=== PATIENT | female | born 1970 | race Caucasian/White ===

== ENCOUNTER 2018-03-17 05:16 | Inpatient (IN) | payer OTHER ==
[2018-03-17 05:31] VITALS: BMI 26.5
[2018-03-17] MEDS ORDERED: SODIUM CHLORIDE 1,000 ML IV STA ×2 (05:41→14:37)
[2018-03-17] MEDS ORDERED: ONDANSETRON 4 MG/2 ML VIAL IVPUSH ONE (05:41)
[2018-03-17] MEDS ORDERED: FAMOTIDINE 20 MG/50 ML IVPB 20 MG/50 ML MG IVPB ONE ×2 (05:41→06:01)
--- NOTE | 2018-03-17 05:47 | PDOC ---
*Physical Exam - Vital Signs Last Vital Signs Temp Pulse Resp BP Pulse Ox 97.7 F 81 20 120/71 99 03/17/18 05:30 03/17/18 05:30 03/17/18 05:30 03/17/18 05:30 03/17/18 05:30 ED Treatment Course - LABORATORY CBC & Chemistry Diagram: 03/23/18 06:00 03/23/18 06:00 Medical Decision Making - Medical Decision Making 03/17/18 05:47 The patient was seen and evaluated in conjunction with SONIA Jackson under my direct supervision, ancillary studies were reviewed. I independently evaluated the patient and I agree with the plan as outlined by SONIA Jackson . *DC/Admit/Observation/Transfer Diagnosis at time of Disposition: Appendicitis - Discharge Dispostion Condition at time of disposition: Guarded - Referrals - Patient Instructions - Post Discharge Activity
[2018-03-17] MEDS ORDERED: ONDANSETRON 4 MG/2 ML VIAL ONE (06:01)
[2018-03-17 06:04] LABS: BASO % 0.3 % (0-2.0); EOS % 0.4 % (0-4.5); HEMOGLOBIN 13.2 GM/dL (10.7-15.3); LYMPH % 9.6 % (8-40); MCH 28.6 pg (25.7-33.7); MCHC 32.9 g/dl (32.0-36.0); MEAN CELL VOLUME 87.1 fl (80-96); NEUT % 86.7 % (42.8-82.8); PLATELET COUNT 229 K/MM3 (134-434); RBC 4.59 M/mm3 (3.60-5.2); RDW 13.7 % (11.6-15.6); WHITE BLOOD COUNT 14.1 K/mm3 (4.0-10.0)
--- NOTE | 2018-03-17 06:14 | PDOC ---
History of Present Illness - General Chief Complaint: Nausea/Vomiting Stated Complaint: ABD PAIN Time Seen by Provider: 03/17/18 05:31 History Source: Patient Exam Limitations: No Limitations Past History - Past Medical History Allergies/Adverse Reactions: Allergies Allergy/AdvReac Type Severity Reaction Status Date / Time No Known Allergies Allergy Verified 03/17/18 05:30 Home Medications: Ambulatory Orders NK [No Known Home Medication] 03/17/18 COPD: No - Surgical History Cholecystectomy: Yes GI Surgery: Yes - Suicide/Smoking/Psychosocial Hx Smoking History: Never smoked Have you smoked in the past 12 months: No Information on smoking cessation initiated: No Hx Alcohol Use: No Drug/Substance Use Hx: No *Physical Exam - Vital Signs Last Vital Signs Temp Pulse Resp BP Pulse Ox 97.7 F 81 20 120/71 99 03/17/18 05:30 03/17/18 05:30 03/17/18 05:30 03/17/18 05:30 03/17/18 05:30 - Physical Exam General Appearance: No: Apparent Distress Respiratory/Chest: positive: Lungs Clear, Normal Breath Sounds. negative: Respiratory Distress Cardiovascular: positive: Regular Rhythm, Regular Rate, S1, S2. negative: Murmur Gastrointestinal/Abdominal: positive: Soft, Tenderness (Along upper abdomen ( mainly RUQ, slight in LUQ as well)). negative: Distended, Guarding, Rebound, Mass Musculoskeletal: negative: CVA Tenderness Integumentary: positive: Normal Color Neurologic: positive: Alert, Normal Mood/Affect Moderate Sedation - Procedure Monitoring Vital Signs: Procedure Monitoring Vital Signs Temperature 97.7 F 03/17/18 05:30 Pulse Rate 81 03/17/18 05:30 Respiratory Rate 20 03/17/18 05:30 Blood Pressure 120/71 03/17/18 05:30 O2 Sat by Pulse Oximetry (%) 99 03/17/18 05:30 ED Treatment Course - LABORATORY CBC & Chemistry Diagram: 03/17/18 05:50 03/17/18 05:50 Medical Decision Making - Medical Decision Making 47 y/o F hx of , tummy tuck, cholecystectomy (around 8 years ago) presents with epigastric pain that started at 2 AM today along with NBNB emesis ; unable to describe quality of pain. Took Tylenol prior to coming without much relief of sxs. Denies eating any food recently that could have triggered her symptoms. Denies fever, URI sxs, sob, cp, diarrhea, black/bloody stools, urinary complaints. Denies alcohol or drug use. DDx to consider: gastritis, choledocholithiasis, pancreatitis Not suspicious for ACS given no risk factors Plan: Labs, IVF, Zofran, Pepcid Will consider further imaging depending on results of labs and how patient feels after meds 03/17/18 06:05 Patient reassessed and now appears to be in more pain than prior Will give Morphine 4 mg, get RUQ sono Labs show WBC of 14.1; CMP and lipase still pending 03/17/18 06:35 Patient reassessed and feeling much better Rest of labs still pending Will endorse to incoming provider 03/17/18 06:50 *DC/Admit/Observation/Transfer - Referrals Referrals: Jamie Beaulieu MD [Primary Care Provider] - - Patient Instructions - Post Discharge Activity
[2018-03-17] MEDS ORDERED: morphine CARPU-JECT 4 MG/1 ML DISP.SYRIN IVPUSH ONE (06:31)
[2018-03-17] MEDS ORDERED: morphine SULFATE 4 MG/ML VIAL ONE (06:33)
[2018-03-17 07:08] LABS: ALBUMIN 3.6 g/dl (3.4-5.0); ALK PHOS 107 U/L (45-117); ANION GAP 9 MMOL/L (8-16); BILIRUBIN,TOTAL 0.4 mg/dL (0.2-1); BLOOD UREA NITROGEN 14 mg/dL (7-18); CALCIUM 8.3 mg/dL (8.5-10.1); CHLORIDE 106 mmol/L (98-107); CO2 25 mmol/L (21-32); CREATININE 0.6 mg/dL (0.55-1.3); GLUCOSE,RANDOM 144 mg/dL (74-106); LIPASE 103 U/L (73-393); POTASSIUM 3.4 mmol/L (3.5-5.1); SGOT/AST 23 U/L (15-37); SGPT/ALT 27 U/L (13-61); SODIUM 140 mmol/L (136-145); TOT PROT 7.7 g/dl (6.4-8.2)
--- NOTE | 2018-03-17 07:17 | PDOC ---
*Physical Exam - Vital Signs Last Vital Signs Temp Pulse Resp BP Pulse Ox 97.7 F 81 20 120/71 99 03/17/18 05:30 03/17/18 05:30 03/17/18 05:30 03/17/18 05:30 03/17/18 05:30 - Physical Exam General Appearance: Yes: Nourished, Appropriately Dressed, Mild Distress ( holding abdomen) Respiratory/Chest: positive: Lungs Clear, Normal Breath Sounds. negative: Respiratory Distress, Accessory Muscle Use, Rhonchi, Stridor, Wheezing Cardiovascular: positive: Regular Rhythm, Regular Rate, S1, S2 (present). negative: Murmur Gastrointestinal/Abdominal: positive: Normal Bowel Sounds, Tender (LLQ, epigastric tenderness), Flat. negative: Distended, Guarding, Rebound Integumentary: positive: Normal Color, Dry, Warm Neurologic: positive: Fully Oriented, Alert, Normal Mood/Affect, Normal Response , Motor Strength 5/5 ED Treatment Course - LABORATORY CBC & Chemistry Diagram: 03/17/18 05:50 03/17/18 05:50 - ADDITIONAL ORDERS Additional order review: Laboratory Results 03/17/18 03/17/18 05:50 05:50 Sodium 140 Potassium 3.4 L Chloride 106 Carbon Dioxide 25 Anion Gap 9 BUN 14 Creatinine 0.6 Creat Clearance w eGFR > 60 Random Glucose 144 H Calcium 8.3 L Total Bilirubin 0.4 AST 23 ALT 27 Alkaline Phosphatase 107 Total Protein 7.7 Albumin 3.6 Lipase 103 Urine HCG, Qual Negative 03/17/18 05:50 RBC 4.59 MCV 87.1 MCHC 32.9 RDW 13.7 MPV 8.0 Neutrophils % 86.7 H Lymphocytes % 9.6 Monocytes % 3.0 L Eosinophils % 0.4 Basophils % 0.3 - Medications Given in the ED: ED Medications Discontinued Medications Generic Name Dose Route Start Last Admin Trade Name Freq PRN Reason Stop Dose Admin Famotidine/Sodium Chloride 20 mg in 50 mls @ 100 mls/hr 03/17/18 05:41 06:06 Pepcid 20 Mg Premixed Ivpb - IVPB 03/17/18 06:10 100 mls/hr ONCE ONE Administration Sodium Chloride 1,000 mls @ 1,000 mls/hr 03/17/18 05:41 03/17/18 06:00 Normal Saline - IV 03/17/18 06:40 1,000 mls/hr ASDIR STA Administration Morphine Sulfate 4 mg 03/17/18 06:31 03/17/18 06:37 Morphine Injection - IVPUSH 03/17/18 06:32 4 mg ONCE ONE Administration Ondansetron HCl 4 mg 03/17/18 05:41 03/17/18 06:06 Zofran Injection IVPUSH 03/17/18 05:42 4 mg ONCE ONE Administration Medical Decision Making - Medical Decision Making 03/17/18 07:16 Sign out received from SONIA Alfaro. Pt came with nausea, vomiting, and RUQ pain. Pt pending CMP and RUQ US at this time. 03/17/18 08:25 Pt headed to US at this time. Pt still with pain, Ofirmev ordered at this time. 03/17/18 10:33 Pt still with pain after US. Abdomen US shows no gallstones or zay. Pt still with LLQ and epigastric pain, CTAP with contrast ordered; reglan ordered for vomiting 03/17/18 15:04 CTAP shows acute appendicitis without abscess formation or perforation. 1g ceftriaxone and 500mg flagyl given Fluids ordered Call placed to Dr. Lehman. Will take to surgery today. Admit to [facility]. *DC/Admit/Observation/Transfer Diagnosis at time of Disposition: Appendicitis Qualifiers: Appendicitis type: acute appendicitis Acute appendicitis type: with localized peritonitis Appendicitis gangrene presence: without gangrene Appendicitis perforation presence: without perforation Appendicitis abscess presence: without abscess Qualified Code(s): K35.30 - Acute appendicitis with localized peritonitis, without perforation or gangrene - Discharge Dispostion Condition at time of disposition: Guarded Decision to Admit order: Yes - Referrals Referrals: Jamie Beaulieu MD [Primary Care Provider] - - Patient Instructions - Post Discharge Activity
[2018-03-17] MEDS ORDERED: ACETAMINOPHEN 1000 MG/100 ML VIAL (NON FORMULARY) IVPB ONE (08:24)
[2018-03-17] MEDS ORDERED: ACETAMINOPHEN INJECTION 100 ML IVPB ONE (08:25)
[2018-03-17] MEDS ORDERED: METOCLOPRAMIDE HCL INJECTION 10 MG/2 ML VIAL ONE (11:05)
[2018-03-17] MEDS ORDERED: METOCLOPRAMIDE HCL INJECTION 10 MG/2 ML VIAL IVPB ONE (11:10)
[2018-03-17] MEDS ORDERED: CEFTRIAXONE 1,000 MG in DEXTROSE 5%-WATER - 50 ML IVPB ONE (14:46)
[2018-03-17] MEDS ORDERED: CEFTRIAXONE 1 GM/50 ML BAG ONE (15:08)
[2018-03-17] MEDS ORDERED: SODIUM CHLORIDE 1,000 ML IV SCH (16:15)
[2018-03-17] MEDS ORDERED: LIDOCAINE HCL 1%, 10 MG/ML (20ML VIAL) ONE (16:34)
[2018-03-17] MEDS ORDERED: BUPIVACAINE HCL/PF 0.5% (5MG/ML) 10 ML VIAL ONE (16:34)
[2018-03-17] MEDS ORDERED: DEXAMETHASONE SOD PHOSPHATE 4 MG/1 ML VIAL ONE ×2 (17:17→17:34)
[2018-03-17] MEDS ORDERED: PROPOFOL 20 ML ONE (17:18)
[2018-03-17] MEDS ORDERED: ROCURONIUM BROMIDE 50 MG/5 ML VIAL ONE (17:19)
[2018-03-17] MEDS ORDERED: ePHEDrine SULFATE 50 MG/1 ML AMPULE ONE (17:29)
[2018-03-17] MEDS ORDERED: BUPIVACAINE HCL/PF (5 MG/ML) 30 ML VIAL IJ ONE ×2 (17:31)
[2018-03-17] MEDS ORDERED: LIDOCAINE HCL 1%, 10 MG/ML (20ML VIAL) INF ONE ×2 (17:31)
[2018-03-17] MEDS ORDERED: NEOSTIGMINE METHYLSULFATE 0.5 MG/ML - 10 ML MDV ONE (17:46)
[2018-03-17] MEDS ORDERED: GLYCOPYRROLATE 0.2 MG/1 ML VIAL ONE (17:46)
[2018-03-17] MEDS ORDERED: KETOROLAC TROMETHAMINE 30 MG/1 ML VIAL IVPUSH PRN (18:09)
--- NOTE | 2018-03-17 18:09 | OP ---
Operative Note - Note: Operative Date: 03/17/18 Pre-Operative Diagnosis: acute appendicittis Operation: laparoscopic appendectomy Post-Operative Diagnosis: Same as Pre-op Anesthesia: General Specimens Removed: appendix Estimated Blood Loss (mls): 5 Operative Report Dictated: Yes
[2018-03-17] MEDS ORDERED: KETOROLAC TROMETHAMINE 30 MG/1 ML VIAL ONE (19:19)
[2018-03-17] MEDS: LACTATED RINGERS SOLUTION 1,000 ML IV SCH (21:54)
[2018-03-17] MEDS: ACETAMINOPHEN WITH CODEINE 300MG/30MG TABLET PO PRN (22:54)
[2018-03-18] MEDS: HYDROmorphone HCl 2 MG/ML VIAL IVPB PRN ×3 (01:38→20:58)
[2018-03-18 07:09] LABS: BASO % 0.1 % (0-2.0); HEMATOCRIT 34.9 % (32.4-45.2); HEMOGLOBIN 11.6 GM/dL (10.7-15.3); LYMPH % 5.8 % (8-40); MCH 28.9 pg (25.7-33.7); MCHC 33.3 g/dl (32.0-36.0); MEAN CELL VOLUME 86.7 fl (80-96); MEAN PLT VOLUME 8.2 fl (7.5-11.1); MONO % 2.5 % (3.8-10.2); NEUT % 91.6 % (42.8-82.8); PLATELET COUNT 187 K/MM3 (134-434); RBC 4.03 M/mm3 (3.60-5.2); RDW 13.2 % (11.6-15.6); WHITE BLOOD COUNT 10.6 K/mm3 (4.0-10.0)
--- NOTE | 2018-03-18 07:44 | OP ---
DATE OF OPERATION: 03/17/2018 PREOPERATIVE DIAGNOSIS: Acute appendicitis. POSTOPERATIVE DIAGNOSIS: Acute appendicitis. PROCEDURE: Laparoscopic appendectomy. SURGEON: Genaro Gamez MD COMPLICATIONS: None. BLEEDING: Minimal. ANESTHESIA: General. SPECIMEN: Appendix. CONDITION: Patient tolerated procedure well. This is a 47-year-old female with no significant past medical history who presented with a 1-day history of lower abdominal pain. She has a history of previous cholecystectomy, and abdominoplasty. On CT it was confirmed to have the presence of acute appendicitis for which a surgical consultation was obtained. Risks and benefits were discussed with the patient and she was taken to the operating room for a laparoscopic appendectomy. She agreed to proceed as planned. In the operating room she was placed in the supine position and after the induction of general anesthesia was prepped and draped in the usual sterile fashion. The operation was begun. Given the previous scar in the abdominal wall with an incision in the left subcostal margin insufflation through a Veress needle to a pressure of 15 mmHg followed by the introduction of 5-mm port. Under direct vision then another 5-mm port was placed in the periumbilical scar tissue and a 12-mm port was placed in the left lower quadrant in the scar of the previous abdominoplasty. The appendix was clearly visualized. The patient was positioned in the reverse Trendelenburg position. The mesoappendix then mobilized and divided over the LigaSure and was skeletonized to the base of the appendix and then an Endo-BLANCA purple stapler was then used to divide the base of the appendix at the level of the cecum. There was no bleeding from the staple line. The appendix was placed in an EndoCatch bag and removed through the left lower quadrant port. The ports were removed under direct vision. The peritoneal cavity was irrigated, inspection properly and the fascia at the 12-mm site was closed with 0 Vicryl suture to close the fascia. The skin was closed with 4-0 Monocryl and Dermabond was applied. The patient was brought then to the recovery room awake and alert in stable condition. She tolerated her procedure well. Jessica [id number]
[2018-03-18 07:54] LABS: ALBUMIN 2.6 g/dl (3.4-5.0); ALK PHOS 55 U/L (45-117); ANION GAP 10 MMOL/L (8-16); BILIRUBIN,TOTAL 1.1 mg/dL (0.2-1); BLOOD UREA NITROGEN 11 mg/dL (7-18); CALCIUM 7.8 mg/dL (8.5-10.1); CHLORIDE 100 mmol/L (98-107); CO2 25 mmol/L (21-32); CREATININE 0.6 mg/dL (0.55-1.3); GLUCOSE,RANDOM 123 mg/dL (74-106); SGOT/AST 11 U/L (15-37); SGPT/ALT 19 U/L (13-61); SODIUM 135 mmol/L (136-145)
--- NOTE | 2018-03-18 08:29 | PN ---
Progress Note (short form) - Note Progress Note: Post op day#1.S/P Laproscopin appendectomy under [place] uneventful.Patient stable.No any anesthesia related problem.Patient Dc from the anesthesia care,
[2018-03-18] MEDS: ACETAMINOPHEN WITH CODEINE 300MG/30MG TABLET PO PRN (11:23)
[2018-03-18 12:02] LABS: ANISOCYTOSIS 0; MACROCYTOSIS 0; PLATELET ESTIMATE NORMAL
[2018-03-19] MEDS: LACTATED RINGERS SOLUTION 1,000 ML IV SCH ×2 (00:24→23:33)
[2018-03-19] MEDS ORDERED: ONDANSETRON 4 MG/2 ML VIAL IVPB ONE (00:27)
[2018-03-19] MEDS: ACETAMINOPHEN WITH CODEINE 300MG/30MG TABLET PO PRN (03:51)
[2018-03-19] MEDS: HYDROmorphone HCl 2 MG/ML VIAL IVPB PRN ×4 (04:12→23:34)
[2018-03-19 10:13] LABS: HEMOGLOBIN 12.7 GM/dL (10.7-15.3); MCH 30.2 pg (25.7-33.7); MCHC 35.2 g/dl (32.0-36.0); MEAN CELL VOLUME 85.8 fl (80-96); MEAN PLT VOLUME 8.3 fl (7.5-11.1); PLATELET COUNT 211 K/MM3 (134-434); RBC 4.19 M/mm3 (3.60-5.2); RDW 13.6 % (11.6-15.6); WHITE BLOOD COUNT 14.5 K/mm3 (4.0-10.0)
[2018-03-19 10:31] LABS: ALK PHOS 82 U/L (45-117); ANION GAP 10 MMOL/L (8-16); BILIRUBIN,TOTAL 1.1 mg/dL (0.2-1); BLOOD UREA NITROGEN 8 mg/dL (7-18); CALCIUM 8.4 mg/dL (8.5-10.1); CHLORIDE 96 mmol/L (98-107); CO2 28 mmol/L (21-32); CREATININE 0.6 mg/dL (0.55-1.3); GLUCOSE,RANDOM 129 mg/dL (74-106); SGOT/AST 10 U/L (15-37); SGPT/ALT 18 U/L (13-61); SODIUM 134 mmol/L (136-145)
[2018-03-19 10:34] LABS: POTASSIUM 2.8 mmol/L (3.5-5.1)
[2018-03-19] MEDS ORDERED: KCL 10 MEQ IVPB 10 MEQ/100 ML INFUS.BAG IVPB SCH (11:00)
[2018-03-19] MEDS ORDERED: POTASSIUM CHLORIDE TABS 20 MEQ TABLET.ER (FP) PO ONE (11:24)
--- NOTE | 2018-03-19 11:30 | PN ---
Progress Note, Physician History of Present Illness: s/p lap appendectomy co's of abdominal pain worse in the left side near incisions - Current Medication List Current Medications: Active Medications Acetaminophen/Codeine Phosphate (Tylenol # 3 -) 1 tab PO Q6H PRN PRN Reason: PAIN LEVEL 6-10 Last Admin: 03/19/18 03:51 Dose: 1 tab Hydromorphone HCl (Dilaudid Vial -) 1 mg IVPB Q6H PRN PRN Reason: PAIN LEVEL 6-10 Last Admin: 03/19/18 10:18 Dose: 1 mg Lactated Ringer's (Lactated Ringers Solution) 1,000 mls @ 100 mls/hr IV ASDIR IKE Last Admin: 03/19/18 00:24 Dose: Not Given Potassium Chloride (Potassium Chloride 10 Meq Premix Ivpb -) 10 meq in 100 mls @ 100 mls/hr IVPB Q60M IKE Stop: 03/19/18 13:59 Potassium Chloride (K-Dur -) 40 meq PO ONCE ONE Stop: 03/19/18 11:25 - Objective Vital Signs: Vital Signs Temperature 99.9 F H 03/19/18 09:10 Pulse Rate 121 H 03/19/18 09:10 Respiratory Rate 18 03/19/18 09:10 Blood Pressure 127/61 03/19/18 09:10 O2 Sat by Pulse Oximetry (%) 99 03/17/18 19:45 Labs: CBC, BMP 03/19/18 09:50 03/19/18 09:50 Assessment/Plan s/p appendectomy with tachycardia EKG shows synus tach hypokalemia beimg replaced repeat cmp this evening Continue clears
--- NOTE | 2018-03-19 12:25 | EKG ---
Test Reason : Blood Pressure : / mmHG Vent. Rate : 124 BPM Atrial Rate : 124 BPM P-R Int : 130 ms QRS Dur : 082 ms QT Int : 306 ms P-R-T Axes : 056 -06 010 degrees QTc Int : 439 ms SINUS TACHYCARDIA NONSPECIFIC T WAVE ABNORMALITY ABNORMAL ECG NO PREVIOUS ECGS AVAILABLE Confirmed by SILVIA CORONA, NINI ([id number]) on 03/19/2018 12:24:34 PM Referred By: [place]ONES Confirmed By:NINI VEGA MD
[2018-03-19] MEDS ORDERED: KETOROLAC TROMETHAMINE 10 MG TABLET PO PRN (14:18)
[2018-03-19 16:46] LABS: ALBUMIN 2.8 g/dl (3.4-5.0); ALK PHOS 80 U/L (45-117); ANION GAP 10 MMOL/L (8-16); BILIRUBIN,TOTAL 0.8 mg/dL (0.2-1); BLOOD UREA NITROGEN 8 mg/dL (7-18); CALCIUM 8.1 mg/dL (8.5-10.1); CHLORIDE 96 mmol/L (98-107); CO2 28 mmol/L (21-32); CREATININE 0.5 mg/dL (0.55-1.3); GLUCOSE,RANDOM 127 mg/dL (74-106); SGOT/AST 11 U/L (15-37); SGPT/ALT 16 U/L (13-61); SODIUM 134 mmol/L (136-145); TOT PROT 6.7 g/dl (6.4-8.2)
[2018-03-19 16:52] LABS: POTASSIUM 2.7 mmol/L (3.5-5.1)
--- NOTE | 2018-03-19 17:05 | PN ---
Physical Exam: SUBJECTIVE: Patient seen and examined at the bedside. post lap appendectomy day #2 post op she became tachycardic. ekg shows tachycardia [id number] No chest pain no shortness of breath. K 2.7. given 40meq po by surgery, repeat k 2.7. mag 2.0 OBJECTIVE: replete K Monitor on tele for at least 24 hours to monitor heart rate recheck ekg after k riders Vital Signs Period Temp Pulse Resp BP Sys/Galvan Pulse Ox Last 24 Hr 98.8 F-100.0 F 113-131 18-20 117-132/54-74 98 GENERAL: The patient is awake, alert, and fully oriented, in no acute distress. HEAD: Normal with no signs of trauma. EYES: PERRL, extraocular movements intact, sclera anicteric, conjunctiva clear. No ptosis. ENT: Ears normal, nares patent, oropharynx clear without exudates, moist mucous membranes. NECK: Trachea midline, full range of motion, supple. LUNGS: Breath sounds equal, clear to auscultation bilaterally, no wheezes, no crackles, no accessory muscle use. HEART: Regular rate and rhythm, S1, S2 without murmur, rub or gallop. ABDOMEN: s/p appendectomy EXTREMITIES: 2+ pulses, warm, well-perfused, no edema. NEUROLOGICAL: Normal speech, gait steady PSYCH: Normal mood, normal affect. SKIN: surgical site c/d/i Laboratory Results - last 24 hr 03/19/18 03/19/18 03/19/18 09:50 09:50 14:45 WBC 14.5 H RBC 4.19 Hgb 12.7 Hct 36.0 MCV 85.8 MCH 30.2 MCHC 35.2 RDW 13.6 Plt Count 211 MPV 8.3 Sodium 134 L Potassium 2.8 L* Chloride 96 L Carbon Dioxide 28 Anion Gap 10 BUN 8 Creatinine 0.6 Creat Clearance w eGFR > 60 Random Glucose 129 H Calcium 8.4 L 7.9 L Magnesium Total Bilirubin 1.1 H AST 10 L ALT 18 Alkaline Phosphatase 82 Troponin I Total Protein 7.0 Albumin 3.0 L 03/19/18 15:45 WBC RBC Hgb Hct MCV MCH MCHC RDW Plt Count MPV Sodium 134 L Potassium 2.7 L* Chloride 96 L Carbon Dioxide 28 Anion Gap 10 BUN 8 Creatinine 0.5 L Creat Clearance w eGFR > 60 Random Glucose 127 H Calcium 8.1 L Magnesium 2.0 Total Bilirubin 0.8 AST 11 L ALT 16 Alkaline Phosphatase 80 Troponin I < 0.02 Total Protein 6.7 Albumin 2.8 L Active Medications Generic Name Dose Route Start Last Admin Trade Name Freq PRN Reason Stop Dose Admin Acetaminophen/Codeine Phosphate 1 tab 03/17/18 18:32 03/19/18 03:51 Tylenol # 3 - PO 1 tab Q6H PRN Administration PAIN LEVEL 6-10 Hydromorphone HCl 1 mg 03/19/18 14:18 03/19/18 16:46 Dilaudid Vial - IVPB 1 mg Q4H PRN Administration PAIN LEVEL 6-10 Lactated Ringer's 1,000 mls @ 100 mls/hr 03/17/18 20:30 03/19/18 00:24 Lactated Ringers Solution IV Not Given ASDIR IKE Potassium Chloride 10 meq in 100 mls @ 100 mls/hr 03/19/18 17:00 Potassium Chloride 10 Meq Premix Ivpb - IVPB 03/19/18 19:59 Q60M IKE Ketorolac Tromethamine 10 mg 03/19/18 14:18 Toradol PO 03/24/18 17:59 Q6HPO PRN PAIN LEVEL 4 - 6 ASSESSMENT/PLAN: Patient is a 47 year old female with a significant past medical history of c- section, tummy tuck, cholecystectomy (around 8 years ago) presents with epigastric pain and is s/p laproscopic appendectomy for acute appendicitis on 01/2018. She is post of day #2. Appendectomy POD #2 s/p appendectomy with tachycardia 120/130s EKG shows sinus tach She denies chest pain or shortness of breath No signs of bleeding, hmg/hct stable troponins negative x 1, will trend K 2.7, given 40meq x 1 by surgery this morning. 3 K riders ordered. repeat cmp this evening @ 9m Continue clears, advance per surgery Echo tomorrow bolus 1000cc of iv saline now, keep LR runnning @ 100/hr Dilaudid for pain transfer to tele pending K riders infusing pt denies pain or discomfort Visit type - Emergency Visit Emergency Visit: Yes Care time: The patient presented to the Emergency Department on the above date and was hospitalized for further evaluation of their emergent condition. - New Patient This patient is new to me today: No - Critical Care Critical Care patient: No - Discharge Referral Referred to [facility] No
[2018-03-19] MEDS: KCL 10 MEQ IVPB 10 MEQ/100 ML INFUS.BAG IVPB SCH ×3 (17:36→19:54)
[2018-03-19] MEDS ORDERED: SODIUM CHLORIDE 1,000 ML IV STA (19:05)
[2018-03-19 21:47] LABS: POTASSIUM 3.5 mmol/L (3.5-5.1)
[2018-03-19] MEDS: ACETAMINOPHEN 325 MG TABLET (FP) PO PRN (23:43)
[2018-03-20] MEDS: HYDROmorphone HCl 2 MG/ML VIAL IVPB PRN ×2 (06:20→13:45)
[2018-03-20 07:10] LABS: BASO % 0.1 % (0-2.0); EOS % 0.5 % (0-4.5); HEMATOCRIT 32.4 % (32.4-45.2); HEMOGLOBIN 10.9 GM/dL (10.7-15.3); LYMPH % 5.8 % (8-40); MCH 28.9 pg (25.7-33.7); MCHC 33.5 g/dl (32.0-36.0); MEAN PLT VOLUME 8.2 fl (7.5-11.1); NEUT % 90.6 % (42.8-82.8); PLATELET COUNT 186 K/MM3 (134-434); RBC 3.77 M/mm3 (3.60-5.2); RDW 13.7 % (11.6-15.6); WHITE BLOOD COUNT 10.4 K/mm3 (4.0-10.0)
[2018-03-20 07:44] LABS: ANION GAP 10 MMOL/L (8-16); BLOOD UREA NITROGEN 7 mg/dL (7-18); CALCIUM 7.9 mg/dL (8.5-10.1); CHLORIDE 101 mmol/L (98-107); CO2 25 mmol/L (21-32); CREATININE 0.4 mg/dL (0.55-1.3); GLUCOSE,RANDOM 112 mg/dL (74-106); MAGNESIUM 2.2 mg/dL (1.8-2.4); POTASSIUM 3.1 mmol/L (3.5-5.1); SODIUM 136 mmol/L (136-145)
[2018-03-20] MEDS ORDERED: POTASSIUM CHLORIDE TABS 20 MEQ TABLET.ER (FP) PO ONE (07:53)
[2018-03-20] MEDS ORDERED: SODIUM CHLORIDE 500 ML IV STA (11:48)
--- NOTE | 2018-03-20 11:49 | PN ---
Physical Exam: SUBJECTIVE: Patient seen and examined at the bedside. verbalizes abdominal pain and that the pain medications are not giving her relief of her pain. OBJECTIVE: + erythema on her rt lower abdomen from her umbilicus down her right thigh, warm to touch abd ct w contrast with abscess, cta done for shortness breath K continues to drop, will put on NS with 10meq. Vital Signs Period Temp Pulse Resp BP Sys/Galvan Pulse Ox Last 24 Hr 98.8 F-100.4 F 115-126 18-20 118-139/54-76 98 GENERAL: The patient is awake, alert, and fully oriented, in no acute distress. HEAD: Normal with no signs of trauma. EYES: PERRL, extraocular movements intact, sclera anicteric, conjunctiva clear. No ptosis. ENT: Ears normal, nares patent, oropharynx clear without exudates, moist mucous membranes. NECK: Trachea midline, full range of motion, supple. LUNGS: Breath sounds equal, clear to auscultation bilaterally, no wheezes, no crackles, no accessory muscle use. HEART: Regular rate and rhythm, S1, S2 without murmur, rub or gallop. ABDOMEN: s/p appendectomy on 03/17/2018. developed right sided abdomen erythema. EXTREMITIES: 2+ pulses, warm, well-perfused, no edema. NEUROLOGICAL: Normal speech, gait steady PSYCH: Normal mood, normal affect Laboratory Results - last 24 hr 03/19/18 03/19/18 03/19/18 14:45 15:45 20:35 WBC RBC Hgb Hct MCV MCH MCHC RDW Plt Count MPV Absolute Neuts (auto) Neutrophils % Lymphocytes % Monocytes % Eosinophils % Basophils % Nucleated RBC % Sodium 134 L Potassium 2.7 L* 3.5 Chloride 96 L Carbon Dioxide 28 Anion Gap 10 BUN 8 Creatinine 0.5 L Creat Clearance w eGFR > 60 Random Glucose 127 H Calcium 7.9 L 8.1 L Magnesium 2.0 Total Bilirubin 0.8 AST 11 L ALT 16 Alkaline Phosphatase 80 Troponin I < 0.02 < 0.02 Total Protein 6.7 Albumin 2.8 L 03/20/18 03/20/18 06:00 06:00 WBC 10.4 H RBC 3.77 Hgb 10.9 Hct 32.4 MCV 86.0 MCH 28.9 MCHC 33.5 RDW 13.7 Plt Count 186 MPV 8.2 Absolute Neuts (auto) 9.4 H Neutrophils % 90.6 H Lymphocytes % 5.8 L Monocytes % 3.0 L Eosinophils % 0.5 D Basophils % 0.1 Nucleated RBC % 0 Sodium 136 Potassium 3.1 L Chloride 101 Carbon Dioxide 25 Anion Gap 10 BUN 7 Creatinine 0.4 L Creat Clearance w eGFR > 60 Random Glucose 112 H Calcium 7.9 L Magnesium 2.2 Total Bilirubin AST ALT Alkaline Phosphatase Troponin I Total Protein Albumin Active Medications Generic Name Dose Route Start Last Admin Trade Name Freq PRN Reason Stop Dose Admin Acetaminophen 650 mg 03/19/18 21:22 03/19/18 23:43 Tylenol - PO 650 mg Q6H PRN Administration FEVER Acetaminophen/Codeine Phosphate 1 tab 03/17/18 18:32 03/19/18 03:51 Tylenol # 3 - PO 1 tab Q6H PRN Administration PAIN LEVEL 6-10 Hydromorphone HCl 1 mg 03/19/18 14:18 03/20/18 06:20 Dilaudid Vial - IVPB 1 mg Q4H PRN Administration PAIN LEVEL 6-10 Lactated Ringer's 1,000 mls @ 100 mls/hr 03/17/18 20:30 03/19/18 23:33 Lactated Ringers Solution IV 100 mls/hr ASDIR IKE Administration Sodium Chloride 500 mls @ 500 mls/hr 03/20/18 11:48 Normal Saline - IV 03/20/18 12:47 ASDIR STA Ketorolac Tromethamine 10 mg 03/19/18 14:18 Toradol PO 03/24/18 17:59 Q6HPO PRN PAIN LEVEL 4 - 6 ASSESSMENT/PLAN: Patient is a 47 year old female with a significant past medical history of c- section, tummy tuck, cholecystectomy (around 8 years ago) presents with epigastric pain and is s/p laproscopic appendectomy for acute appendicitis on 01/2018. She is post of day #3 of lap appendectomy. imaging: CTA/abdominal CT 03/20/18: sub optimal cta, no gross findings on right pulm artery. interval bibasal atelectatic changes, trace bilateral pleural eff., asymmetric masslike glandular tissue in the right breast. hepatomegaly. s/p appendectomy with a collection seem in rlq. sx bed measuring 4 x 2.6 cm. consistent with abscess. moderate dilatation of the small bowel loops with air fluid levels likely on the basis of ileus. possible partial obstruction d/t thickening of the terminal ileum. Echo: LV normal, ef 55-60%, rv systolic fx is normal, left atrial size normal, mild other findings. Surgery: Appendectomy POD #3 s/p appendectomy with post op tachycardia 120-130s given boluses of ivf, pain managed EKG shows sinus tach She denies chest pain or shortness of breath No signs of bleeding, hmg/hct stable low grade fevers overnight and development of an erythema on right abdomen down to her upper right hip. blood cultures sent before antbx initiated. started on zosyn. ID consulted. CT abd as noted above. Manage pain. Surgery following. Hypokalemia, repleted, but continues to drop start NS with 10meq @ 100 Electrolytes: Mag wnl K 3.1, started on ivf with K corrected calcium 8.9 fen NS w/10meq @ 100 monitor electrolytes in a.m. Npo, clears once symptoms improve prophy SCDs Protonix iv full code Visit type - Emergency Visit Emergency Visit: Yes ED Registration Date: 03/20/18 Care time: The patient presented to the Emergency Department on the above date and was hospitalized for further evaluation of their emergent condition. - New Patient This patient is new to me today: No - Critical Care Critical Care patient: No - Discharge Referral Referred to [facility] No
[2018-03-20] MEDS ORDERED: oxyCODONE HCL 5 MG TABLET PO PRN ×2 (12:07)
[2018-03-20] MEDS ORDERED: HYDROmorphone HCL CARPU-JECT 2 MG/1 ML DISP.SYRIN IVPB PRN (12:21)
[2018-03-20] MEDS ORDERED: PIPERACILLIN/TAZOB 3.375 GM 3.375 GM in DEXTROSE 5%-WATER - 50 ML IVPB ONE (12:22)
--- NOTE | 2018-03-20 12:59 | CON.ID ---
Consult Consult Specialty:: infectious diseases Referred by:: Wendi Reason for Consultation:: post op - History of Present Illness Chief Complaint: abd pain History of Present Illness: 47 y/o F hx of , tummy tuck, cholecystectomy (around 8 years ago) admitted because of abd pain with associated nausea and vomiting. patient came to the hospital because the pain was ongoing and was worked and was found to have appendicitis . patient was seen by surgery and taken to the operating room and underwent lap appendectomy. post op patient has started developing abd pain which is significant and patient is very uncomfortable currently she is c/o of lot of abd pain - History Source History Provided By: Patient Limitations to Obtaining History: No Limitations - Alcohol/Substance Use Hx Alcohol Use: No - Smoking History Smoking history: Never smoked Have you smoked in the past 12 months: No Home Medications - Allergies Allergies/Adverse Reactions: Allergies Allergy/AdvReac Type Severity Reaction Status Date / Time No Known Allergies Allergy Verified 03/17/18 05:30 - Home Medications Home Medications: Ambulatory Orders NK [No Known Home Medication] 03/17/18 Review of Systems - Review of Systems Constitutional: reports: No Symptoms Eyes: reports: No Symptoms HENT: reports: No Symptoms Neck: reports: No Symptoms Cardiovascular: reports: No Symptoms Respiratory: reports: No Symptoms Gastrointestinal: reports: Abdominal Pain Genitourinary: reports: No Symptoms Musculoskeletal: reports: No Symptoms Integumentary: reports: No Symptoms Neurological: reports: No Symptoms Endocrine: reports: No Symptoms Hematology/Lymphatic: reports: No Symptoms Psychiatric: reports: No Symptoms Physical Exam Vital Signs: Vital Signs Temperature 99.2 F 03/20/18 12:22 Pulse Rate 120 H 03/20/18 12:22 Respiratory Rate 20 03/20/18 12:22 Blood Pressure 114/77 03/20/18 12:22 O2 Sat by Pulse Oximetry (%) 98 03/19/18 21:00 Constitutional: Yes: Moderate Distress Eyes: Yes: Conjunctiva Clear HENT: Yes: Atraumatic, Normocephalic Neck: Yes: Supple, Trachea Midline Cardiovascular: Yes: Regular Rate and Rhythm Respiratory: Yes: Regular, Poor Air Entry (at bases) Gastrointestinal: Yes: Tenderness, Other (absent bowel sounds). No: Tenderness , Rebound Musculoskeletal: Yes: WNL Extremities: Yes: WNL Wound/Incision: Yes: Clean/Dry, Other Neurological: Yes: Alert, Oriented Psychiatric: Yes: Alert, Oriented Labs: CBC, BMP 03/20/18 06:00 03/20/18 06:00 Imaging - Results Chest X-ray: Report Reviewed, Image Reviewed Cat Scan: Report Reviewed, Image Reviewed Ultrasound: Report Reviewed, Image Reviewed Assessment/Plan Patient is a 47 year old female with a significant past medical history of c- section, tummy tuck, cholecystectomy (around 8 years ago) presents with epigastric pain and is s/p laproscopic appendectomy for acute appendicitis on 01/2018. She is post of day #3 i am worried the way she is having abd pain peritonitis abd pain ac appendicitis post op plan i think we should keep her npo for now blood work including lactic acid will start on abx monitor wbc and symptoms i think we should repeat a ct scan of the abdomen .
[2018-03-20] MEDS ORDERED: PIPERACILLIN/TAZOBACTAM 3.375 GM VIAL IVPB ONE ×3 (13:43→20:59)
[2018-03-20] MEDS ORDERED: DEXTROSE 5%-WATER - 50 ML IVPB ONE ×3 (13:43→21:00)
--- NOTE | 2018-03-20 14:38 | ECHO ---
Name: SONNY VELASQUEZ Exam:Adult Echocardiogram Study Date: 03/20/2018 01:54 PM Age: 47 yrs Reason For Study: Tachycardia Height: 62 in Weight: 145 lb BSA: 1.7 m2 MMode/2D Measurements & Calculations IVSd: 1.0 cm ACS: 1.9 cm LVIDd: 4.0 cm LVIDs: 3.2 cm LVPWd: 1.3 cm EDV(Teich): 69.6 ml ESV(Teich): 41.7 ml Doppler Measurements & Calculations TR max maciel: 274.5 cm/sec Med Peak E' Maciel: 8.3 cm/sec TR max P.1 mmHg Lat Peak E' Maciel: 10.4 cm/sec Procedure A complete two-dimensional transthoracic echocardiogram was performed (2D, M-mode, Doppler and color flow Doppler). Technically limited study. Left Ventricle The left ventricle is normal in size. Left ventricular systolic function is normal. Ejection Fraction = 55- 60%. No regional wall motion abnormalities noted. Right Ventricle The right ventricle is normal size. The right ventricular systolic function is normal. Atria The left atrial size is normal. Right atrium not well visualized. Mitral Valve There is mild mitral annular calcification. There is mild mitral regurgitation. Tricuspid Valve The tricuspid valve is normal in structure and function. There is mild tricuspid regurgitation. Pulmo nary artery systolic pressure is at least 33 mmHg assuming RA pressure of 3 mmHg. Aortic Valve There is mild aortic sclerosis.;. No aortic regurgitation is present. Pulmonic Valve The pulmonic valve is not well visualized. Great Vessels The aortic root is normal size. Pericardium/Pleura There is no pericardial effusion. Interpretation Summary Technically limited study The left ventricle is normal in size. Left ventricular systolic function is normal. No regional wall motion abnormalities noted. Ejection Fraction = 55-60%. The right ventricular systolic function is normal. The left atrial size is normal. Right atrium not well visualized. There is mild mitral annular calcification. There is mild mitral regurgitation. There is mild tricuspid regurgitation. Pulmonary artery systolic pressure is at least 33 mmHg assuming RA pressure of 3 mmHg There is mild aortic sclerosis. There is no pericardial effusion. Previous study is not available for comparison Dimitri Ahumada MD 03/20/2018 02:38 PM
[2018-03-20] MEDS: LACTATED RINGERS SOLUTION 1,000 ML IV SCH (17:01)
[2018-03-20] MEDS: PIPERACILLIN/TAZOB 3.375 GM 3.375 GM in DEXTROSE 5%-WATER - 50 ML IVPB SCH (18:08)
--- NOTE | 2018-03-20 19:18 | PN ---
Progress Note, Physician History of Present Illness: s/p lp appendectomy continues to experience pain and distention Reports several bms low grade temp last pm - Current Medication List Current Medications: Active Medications Acetaminophen (Tylenol -) 650 mg PO Q6H PRN PRN Reason: FEVER Last Admin: 03/19/18 23:43 Dose: 650 mg Hydromorphone HCl (Dilaudid Vial -) 2 mg IVPB Q6H PRN PRN Reason: PAIN LEVEL 7 - 10 Last Admin: 03/20/18 13:45 Dose: 2 mg Lactated Ringer's (Lactated Ringers Solution) 1,000 mls @ 100 mls/hr IV ASDIR IKE Last Admin: 03/20/18 17:01 Dose: 100 mls/hr Piperacillin Sod/Tazobactam (Sod 3.375 gm/ Dextrose) 50 mls @ 100 mls/hr IVPB Q8H-IV KIE; Protocol Last Admin: 03/20/18 18:08 Dose: 100 mls/hr Ketorolac Tromethamine (Toradol) 10 mg PO Q6HPO PRN PRN Reason: PAIN LEVEL 4 - 6 Stop: 03/24/18 17:59 Last Admin: 03/20/18 18:08 Dose: 10 mg - Objective Vital Signs: Vital Signs Temperature 99.2 F 03/20/18 14:52 Pulse Rate 127 H 03/20/18 14:52 Respiratory Rate 20 03/20/18 14:52 Blood Pressure 138/87 03/20/18 14:52 O2 Sat by Pulse Oximetry (%) 98 03/20/18 09:00 Gastrointestinal: Yes: Tenderness (diffuse no peritoneal sgns), Other ( erythema of abdominal wal worse on the right side) Labs: CBC, BMP 03/20/18 06:00 03/20/18 06:00 Assessment/Plan s/p appendectomy POD 3 with unexplained tachycardia and erythema of abdominal wall Ct ordered stat shows small collection int he RLQ otherwise unremarkable REcommend continue on clear and start IV antibiotics
[2018-03-20 22:31] LABS: ALBUMIN 2.5 g/dl (3.4-5.0); ALK PHOS 93 U/L (45-117); ANION GAP 10 MMOL/L (8-16); BILIRUBIN,TOTAL 0.7 mg/dL (0.2-1); BLOOD UREA NITROGEN 12 mg/dL (7-18); CALCIUM 7.9 mg/dL (8.5-10.1); CHLORIDE 100 mmol/L (98-107); CO2 26 mmol/L (21-32); CREATININE 0.4 mg/dL (0.55-1.3); GLUCOSE,RANDOM 123 mg/dL (74-106); POTASSIUM 3.1 mmol/L (3.5-5.1); SGOT/AST 13 U/L (15-37); SGPT/ALT 18 U/L (13-61); SODIUM 136 mmol/L (136-145); TOT PROT 6.2 g/dl (6.4-8.2)
[2018-03-20] MEDS ORDERED: ONDANSETRON 4 MG/2 ML VIAL IVPUSH ONE (22:48)
[2018-03-20] MEDS: SODIUM CHLORIDE 1,000 ML with POTASSIUM CHLORIDE 10 MEQ IV SCH (23:29)
[2018-03-21] MEDS ORDERED: METOCLOPRAMIDE HCL INJECTION 10 MG/2 ML VIAL IVPUSH ONE (00:43)
[2018-03-21] MEDS: PIPERACILLIN/TAZOB 3.375 GM 3.375 GM in DEXTROSE 5%-WATER - 50 ML IVPB SCH ×3 (01:32→18:34)
[2018-03-21 07:08] LABS: BASO % 0.2 % (0-2.0); EOS % 0.7 % (0-4.5); HEMATOCRIT 35.3 % (32.4-45.2); HEMOGLOBIN 11.6 GM/dL (10.7-15.3); LYMPH % 3.9 % (8-40); MCH 28.4 pg (25.7-33.7); MCHC 32.8 g/dl (32.0-36.0); MEAN CELL VOLUME 86.4 fl (80-96); MEAN PLT VOLUME 8.1 fl (7.5-11.1); MONO % 5.5 % (3.8-10.2); NEUT % 89.7 % (42.8-82.8); PLATELET COUNT 223 K/MM3 (134-434); RBC 4.08 M/mm3 (3.60-5.2); RDW 13.5 % (11.6-15.6); WHITE BLOOD COUNT 11.8 K/mm3 (4.0-10.0)
[2018-03-21 08:07] LABS: ANION GAP 10 MMOL/L (8-16); BLOOD UREA NITROGEN 14 mg/dL (7-18); CALCIUM 7.8 mg/dL (8.5-10.1); CHLORIDE 102 mmol/L (98-107); CO2 24 mmol/L (21-32); CREATININE 0.3 mg/dL (0.55-1.3); GLUCOSE,RANDOM 122 mg/dL (74-106); MAGNESIUM 2.4 mg/dL (1.8-2.4); PHOSPHOROUS 2.4 mg/dL (2.5-4.9); SODIUM 136 mmol/L (136-145)
[2018-03-21 08:32] LABS: POTASSIUM 2.9 mmol/L (3.5-5.1)
[2018-03-21] MEDS ORDERED: DEXTROSE 5%-WATER - 100 ML IVPB ONE ×2 (08:44→18:18)
[2018-03-21] MEDS ORDERED: PIPERACILLIN/TAZOBACTAM 3.375 GM VIAL IVPB ONE ×2 (08:44→18:18)
--- NOTE | 2018-03-21 09:41 | PN ---
Progress Note, Physician Chief Complaint: 24Hr EVENTS: -pt seen by ID and started on Zosyn. WBC increased slightly this AM. -abd CT with moderate dilatation of small bowel loops with air-fluid levels likely on the basis of ileus. Partial obstruction cannot be ruled out. Pt with an episode of vomiting overnight. currently NPO. At the time of exam, pt denies pain and feels much improved since last night -RLQ collection measuring 4 x 2.6cm consistent with abscess, as per surgical team, collection is too small to drain -pt pink plaque-like rash to lower abd and right upper thigh -pt with metabolic disarray on AM labs, calcium, phos and K aggressively repleted. - Current Medication List Current Medications: Active Medications Acetaminophen (Tylenol -) 650 mg PO Q6H PRN PRN Reason: FEVER Last Admin: 03/19/18 23:43 Dose: 650 mg Calcium Gluconate (Calcium Gluconate 10% -) 1,000 mg IVPB ONCE ONE Stop: 03/21/18 09:31 Hydromorphone HCl (Dilaudid Vial -) 2 mg IVPB Q6H PRN PRN Reason: PAIN LEVEL 7 - 10 Last Admin: 03/20/18 13:45 Dose: 2 mg Piperacillin Sod/Tazobactam (Sod 3.375 gm/ Dextrose) 50 mls @ 100 mls/hr IVPB Q8H-IV IKE; Protocol Last Admin: 03/21/18 01:32 Dose: 100 mls/hr Potassium Chloride 10 meq/ (Sodium Chloride) 1,005 mls @ 100 mls/hr IV Q10H IKE Last Admin: 03/20/18 23:29 Dose: 100 mls/hr Potassium Chloride (Potassium Chloride 10 Meq Premix Ivpb -) 10 meq in 100 mls @ 100 mls/hr IVPB Q60M IKE Stop: 03/21/18 12:59 Vancomycin HCl 1,250 mg/ (Dextrose) 250 mls @ 250 mls/2 hr IVPB Q24H IKE; Protocol Ketorolac Tromethamine (Toradol) 10 mg PO Q6HPO PRN PRN Reason: PAIN LEVEL 4 - 6 Stop: 03/24/18 17:59 Last Admin: 03/20/18 18:08 Dose: 10 mg Potassium Chloride (Potassium Chloride Oral Liquid) 40 meq PO ONCE ONE Stop: 03/21/18 09:46 Potassium Phos/Sodium Phos (Phos-Nak Packet -) 1 packet PO ONCE ONE Stop: 03/21/18 09:46 - Objective Vital Signs: Vital Signs Temperature 99 F 03/21/18 05:33 Pulse Rate 118 H 03/21/18 05:33 Respiratory Rate 18 03/21/18 05:33 Blood Pressure 136/77 03/21/18 05:33 O2 Sat by Pulse Oximetry (%) 98 03/20/18 09:00 Constitutional: Yes: Well Nourished, No Distress, Calm Eyes: Yes: Conjunctiva Clear, PERRL HENT: Yes: Atraumatic, Normocephalic Neck: Yes: Supple, Trachea Midline Cardiovascular: Yes: Regular Rate and Rhythm Respiratory: Yes: Regular, CTA Bilaterally Gastrointestinal: Yes: Soft, Hypoactive Bowel Sounds ...Rectal Exam: Yes: Deferred Musculoskeletal: Yes: WNL Extremities: Yes: WNL Edema: No Peripheral Pulses WNL: Yes Peripheral Pulses: Left Radial: 2+, Right Radial: 2+ Integumentary: Yes: Incision (healed crusted incision to abdomen.), Rash ( salmon colored rash to lower back and upper thigh) Wound/Incision: Yes: Clean/Dry, Open to air Neurological: Yes: Alert, Oriented ...Motor Strength: WNL Psychiatric: Yes: Alert, Oriented Labs: CBC, BMP 03/21/18 06:30 03/21/18 06:30 - ....Imaging Cat Scan: Report Reviewed (Chest/thorax 03/20/2018 IMPRESSION: Suboptimal enhancement of the pulmonary arteries significantly limiting this examination to rule out a pulmonary embolus. However, there is no gross filling defect in the main pulmonary artery and its bifurcation, bilaterally. Correlate clinically for further evaluation. Normal enhancement of the thoracic and abdominal aorta. Interval bibasal atelectatic changes with consolidation on the right and a trace of bilateral pleural effusion. Note is made of asymmetric masslike glandular tissue in the right breast, laterally on axial image 37 for which correlation with physical exam and mammogram is indicated. Status post cholecystectomy. Hepatomegaly with suggestion of fatty infiltration of liver. Please correlate with liver enzymes. Status post appendectomy with a collection now seen in the right lower quadrant, surgical bed measuring 4 x 2.6 cm that demonstrates peripheral irregular enhancement consistent with an abscess. There is stranding of the surrounding fat with thickening of the terminal ileum. Minimal free fluid in the right lower quadrant and small to moderate amount of free fluid in the pelvis. Moderate dilatation of the small bowel loops with air-fluid levels likely on the basis of ileus. Cannot rule out partial obstruction due to thickening of the terminal ileum. Subcutaneous stranding and air pockets in the left lower anterior abdomen wall likely due to the recent surgery.) Problem List - Problems (1) Right lower quadrant abdominal abscess Assessment/Plan: pt followed by surgical, no intervention currently warranted. continue Zosyn and add vanco x 72hrs trend WBC and temp curve Code(s): K65.1 - PERITONEAL ABSCESS (2) Ileus, postoperative Assessment/Plan: pt has passed gassed and had several loose stools overnight no need for NGT clear liquid diet today Code(s): K91.89 - OTH POSTPROCEDURAL COMPLICATIONS AND DISORDERS OF DGSTV SYS; K56.7 - ILEUS, UNSPECIFIED (3) Electrolyte disturbance Assessment/Plan: KCL IV x 30meq, KCL 40meq oral STAT Calgluconate x 1g [place] x 1 dose Code(s): E87.8 - OTH DISORDERS OF ELECTROLYTE AND FLUID BALANCE, NEC (4) Post-op pain Assessment/Plan: pain control with toradol and dilaudid OOB to chair reglan PRN nausea Code(s): G89.18 - OTHER ACUTE POSTPROCEDURAL PAIN (5) Appendicitis Code(s): K37 - UNSPECIFIED APPENDICITIS Qualifiers: Appendicitis type: acute appendicitis Acute appendicitis type: with localized peritonitis Appendicitis gangrene presence: without gangrene Appendicitis perforation presence: without perforation Appendicitis abscess presence: without abscess Qualified Code(s): K35.30 - Acute appendicitis with localized peritonitis, without perforation or gangrene Impression/Plan Impression/Plan: bowel regimen with senna and colace SCDs for DVT PPX Full code Visit type - Emergency Visit Emergency Visit: Yes ED Registration Date: 03/20/18 Care time: The patient presented to the Emergency Department on the above date and was hospitalized for further evaluation of their emergent condition. - New Patient This patient is new to me today: Yes Date on this admission: 03/21/18 - Critical Care Critical Care patient: No - Discharge Referral Referred to [facility] Med P.C.: No
[2018-03-21] MEDS ORDERED: DOCUSATE NA 100 MG/10 ML UNIT-DOSE CUPS PO PRN (09:44)
[2018-03-21] MEDS ORDERED: POTASSIUM CHLORIDE ORAL LIQUID 20 MEQ/15 ML PO ONE (09:45)
[2018-03-21] MEDS ORDERED: NAPH,MB-DB/K PH,MBDB POWDER PACKET PO ONE ×2 (09:45→17:38)
[2018-03-21] MEDS ORDERED: CALCIUM GLUCONATE 10% - 1,000 MG/10 ML VIAL IVPB ONE (10:00)
[2018-03-21] MEDS: HYDROmorphone HCl 2 MG/ML VIAL IVPB PRN ×3 (10:07→22:33)
[2018-03-21] MEDS: KCL 10 MEQ IVPB 10 MEQ/100 ML INFUS.BAG IVPB SCH ×3 (10:18→13:17)
[2018-03-21] MEDS: METOCLOPRAMIDE HCL INJECTION 10 MG/2 ML VIAL IVPUSH PRN ×2 (10:24→22:46)
[2018-03-21] MEDS ORDERED: VANCOMYCIN 1,250 MG in DEXTROSE 5%-WATER - 250 ML IVPB ONE (10:30)
--- NOTE | 2018-03-21 11:03 | PN ---
Progress Note (short form) - Note Progress Note: 47yo F s/p lap appy, seen and examined at bedside. Pt continues to complain of abd pain. Pt had episode of vomiting last night. Pt denies fever, chills. Last Vital Signs Temp Pulse Resp BP Pulse Ox 98.2 F 115 H 18 123/78 98 03/21/18 10:00 03/21/18 10:00 03/21/18 10:00 03/21/18 10:00 03/20/18 09:00 CBC, BMP 03/21/18 06:30 03/21/18 06:30 PE: Gen: A&O x3 Resp: breathing comfortably Abd: soft, moderately tender, erythema on RUQ abd, nondistended Ext; no edema CT abd/pel: shows 4 x 2.5cm collection RLQ Problem List - Problems (1) Appendicitis Assessment/Plan: Plan -continue abx for collection, no need for IR drainage at this time. -advance diet as tolerated. -replete potassium -pain management Will continue to follow Case discussed with Dr. Gamez who agrees with plan Code(s): K37 - UNSPECIFIED APPENDICITIS Qualifiers: Appendicitis type: acute appendicitis Acute appendicitis type: with localized peritonitis Appendicitis gangrene presence: without gangrene Appendicitis perforation presence: without perforation Appendicitis abscess presence: without abscess Qualified Code(s): K35.30 - Acute appendicitis with localized peritonitis, without perforation or gangrene
[2018-03-21 11:18] LABS: ANISOCYTOSIS 0; MACROCYTOSIS 0; PLATELET ESTIMATE NORMAL
--- NOTE | 2018-03-21 13:13 | PN ---
Progress Note, Physician History of Present Illness: feels slightly better abd softer says the pain is better - Current Medication List Current Medications: Active Medications Acetaminophen (Tylenol -) 650 mg PO Q6H PRN PRN Reason: FEVER Last Admin: 03/19/18 23:43 Dose: 650 mg Docusate Sodium (Colace Liquid -) 100 mg PO DAILY PRN PRN Reason: CONSTIPATION Hydromorphone HCl (Dilaudid Vial -) 2 mg IVPB Q6H PRN PRN Reason: PAIN LEVEL 7 - 10 Last Admin: 03/21/18 10:07 Dose: 2 mg Piperacillin Sod/Tazobactam (Sod 3.375 gm/ Dextrose) 50 mls @ 100 mls/hr IVPB Q8H-IV IKE; Protocol Last Admin: 03/21/18 10:01 Dose: 100 mls/hr Potassium Chloride 10 meq/ (Sodium Chloride) 1,005 mls @ 100 mls/hr IV Q10H IKE Last Admin: 03/20/18 23:29 Dose: 100 mls/hr Vancomycin HCl 1,250 mg/ (Dextrose) 250 mls @ 250 mls/2 hr IVPB Q24H IKE; Protocol Ketorolac Tromethamine (Toradol) 10 mg PO Q6HPO PRN PRN Reason: PAIN LEVEL 4 - 6 Stop: 03/24/18 17:59 Last Admin: 03/20/18 18:08 Dose: 10 mg Metoclopramide HCl (Reglan Injection -) 10 mg IVPUSH Q6H PRN PRN Reason: NAUSEA AND/OR VOMITING Last Admin: 03/21/18 10:24 Dose: 10 mg Senna (Senna Oral Solution -) 8.8 mg PO HS [facility] - Objective Vital Signs: Vital Signs Temperature 98.2 F 03/21/18 10:00 Pulse Rate 115 H 03/21/18 10:00 Respiratory Rate 18 03/21/18 10:00 Blood Pressure 123/78 03/21/18 10:00 O2 Sat by Pulse Oximetry (%) 98 03/20/18 09:00 Constitutional: Yes: Calm, Mild Distress Cardiovascular: Yes: Regular Rate and Rhythm Respiratory: Yes: Regular, CTA Bilaterally Gastrointestinal: Yes: Soft, Hypoactive Bowel Sounds, Other Musculoskeletal: Yes: WNL Extremities: Yes: WNL Wound/Incision: Yes: Clean/Dry, Other (small area of discoloration at the left site) Neurological: Yes: Alert, Oriented Psychiatric: Yes: Alert, Oriented Labs: CBC, BMP 03/21/18 06:30 03/21/18 06:30 - ....Imaging Cat Scan: Report Reviewed, Image Reviewed Assessment/Plan Patient is a 47 year old female with a significant past medical history of c- section, tummy tuck, cholecystectomy (around 8 years ago) presents with epigastric pain and is s/p laproscopic appendectomy for acute appendicitis on 01/2018. She is post of day #3 peritonitis abd pain ac appendicitis post op abd abscess plan continue abx monitor wbc increased ct scan result noted images seen will see how patient progresses
[2018-03-21] MEDS: SODIUM CHLORIDE 1,000 ML with POTASSIUM CHLORIDE 10 MEQ IV SCH ×2 (13:18→18:38)
[2018-03-21 17:03] LABS: BASO % 0.1 % (0-2.0); EOS % 2.3 % (0-4.5); HEMATOCRIT 33.2 % (32.4-45.2); HEMOGLOBIN 11.7 GM/dL (10.7-15.3); LYMPH % 5.9 % (8-40); MCH 30.4 pg (25.7-33.7); MCHC 35.3 g/dl (32.0-36.0); MEAN CELL VOLUME 85.9 fl (80-96); MEAN PLT VOLUME 7.9 fl (7.5-11.1); MONO % 7.6 % (3.8-10.2); NEUT % 84.1 % (42.8-82.8); PLATELET COUNT 246 K/MM3 (134-434); RBC 3.87 M/mm3 (3.60-5.2); RDW 13.6 % (11.6-15.6); WHITE BLOOD COUNT 10.2 K/mm3 (4.0-10.0)
[2018-03-21 17:23] LABS: ANION GAP 10 MMOL/L (8-16); BLOOD UREA NITROGEN 11 mg/dL (7-18); CALCIUM 7.9 mg/dL (8.5-10.1); CHLORIDE 105 mmol/L (98-107); CO2 24 mmol/L (21-32); CREATININE 0.5 mg/dL (0.55-1.3); GLUCOSE,RANDOM 113 mg/dL (74-106); POTASSIUM 3.5 mmol/L (3.5-5.1); SODIUM 138 mmol/L (136-145)
[2018-03-21] MEDS ORDERED: POTASSIUM CHLORIDE TABS 10 MEQ TABLET.ER (FP) PO ONE (17:38)
--- NOTE | 2018-03-21 17:38 | PATH ---
Surgical Pathology Report Patient Name: SONNY VELASQUEZ [facility]. Rec. #: [id number] /Age/Gender: 1970 (Age: 47) / F Account: [id number] Location: [facility] MED/SURG Taken: 03/17/2018 Received: 03/20/2018 Reported: 03/21/2018 Physicians: Genaro Gamez M.D. Specimen(s) Received APPENDIX Clinical History Appendicitis Final Diagnosis APPENDIX, LAPAROSCOPIC APPENDECTOMY: ACUTE APPENDICITIS AND PERIAPPENDICITIS. Electronically Signed Mimi Echeverria M.D. Gross Description Received in formalin, labeled "appendix," is a 9 cm. in length vermiform appendix with a stapled margin of resection and moderate attached fat. The serosa is jay-reed and smooth. Sectioning reveals a focally dilated lumen containing brown fecal material. The wall of the appendix averages 0.1 cm. in thickness. [employer] sections are submitted in one cassette. 03/20/201803/20/2018
[2018-03-21] MEDS ORDERED: SENNOSIDES 8.8 MG/5 ML BULK BOTTLE PO SCH (22:00)
[2018-03-22] MEDS ORDERED: DEXTROSE 5%-WATER - 100 ML IVPB ONE (00:51)
[2018-03-22] MEDS ORDERED: PIPERACILLIN/TAZOBACTAM 3.375 GM VIAL IVPB ONE ×2 (00:51→08:43)
[2018-03-22] MEDS: PIPERACILLIN/TAZOB 3.375 GM 3.375 GM in DEXTROSE 5%-WATER - 50 ML IVPB SCH ×2 (01:09→10:41)
[2018-03-22] MEDS: HYDROmorphone HCl 2 MG/ML VIAL IVPB PRN ×3 (04:16→21:31)
[2018-03-22] MEDS: METOCLOPRAMIDE HCL INJECTION 10 MG/2 ML VIAL IVPUSH PRN (04:17)
[2018-03-22] MEDS: SENNOSIDES 8.8 MG/5 ML BULK BOTTLE PO SCH ×2 (04:21→21:38)
[2018-03-22] MEDS ORDERED: DEXTROSE 5%-WATER - 50 ML IVPB ONE (08:43)
[2018-03-22] MEDS ORDERED: LACTATED RINGERS SOLUTION 1,000 ML/1,000 ML INFUS.BAG IV SCH (08:45)
[2018-03-22 09:09] LABS: BASO % 0.2 % (0-2.0); HEMATOCRIT 33.8 % (32.4-45.2); HEMOGLOBIN 11.7 GM/dL (10.7-15.3); LYMPH % 11.4 % (8-40); MCH 30.2 pg (25.7-33.7); MCHC 34.6 g/dl (32.0-36.0); MEAN CELL VOLUME 87.2 fl (80-96); MEAN PLT VOLUME 7.7 fl (7.5-11.1); MONO % 10.4 % (3.8-10.2); PLATELET COUNT 242 K/MM3 (134-434); RBC 3.88 M/mm3 (3.60-5.2); RDW 13.7 % (11.6-15.6)
--- NOTE | 2018-03-22 09:37 | PN ---
Progress Note, Physician History of Present Illness: patient still with abd pain but says better no specific complaints - Current Medication List Current Medications: Active Medications Acetaminophen (Tylenol -) 650 mg PO Q6H PRN PRN Reason: FEVER Last Admin: 03/19/18 23:43 Dose: 650 mg Docusate Sodium (Colace Liquid -) 100 mg PO DAILY PRN PRN Reason: CONSTIPATION Hydromorphone HCl (Dilaudid Vial -) 2 mg IVPB Q6H PRN PRN Reason: PAIN LEVEL 7 - 10 Last Admin: 03/22/18 04:16 Dose: 2 mg Piperacillin Sod/Tazobactam (Sod 3.375 gm/ Dextrose) 50 mls @ 100 mls/hr IVPB Q8H-IV IKE; Protocol Last Admin: 03/22/18 01:09 Dose: 100 mls/hr Potassium Chloride 10 meq/ (Sodium Chloride) 1,005 mls @ 100 mls/hr IV Q10H IKE Last Admin: 03/21/18 18:38 Dose: Not Given Vancomycin HCl 1,250 mg/ (Dextrose) 250 mls @ 250 mls/2 hr IVPB Q24H IKE; Protocol Lactated Ringer's (Lactated Ringers Solution) 1,000 ml in 1,000 mls @ 100 mls/ hr IV ASDIR IKE Ketorolac Tromethamine (Toradol) 10 mg PO Q6HPO PRN PRN Reason: PAIN LEVEL 4 - 6 Stop: 03/24/18 17:59 Last Admin: 03/20/18 18:08 Dose: 10 mg Metoclopramide HCl (Reglan Injection -) 10 mg IVPUSH Q6H PRN PRN Reason: NAUSEA AND/OR VOMITING Last Admin: 03/22/18 04:17 Dose: 10 mg Senna (Senna Oral Solution -) 8.8 mg PO HS IKE Last Admin: 03/22/18 04:21 Dose: 8.8 mg - Objective Vital Signs: Vital Signs Temperature 99.6 F 03/22/18 06:19 Pulse Rate 110 H 03/22/18 06:19 Respiratory Rate 18 03/22/18 06:19 Blood Pressure 118/69 03/22/18 06:19 O2 Sat by Pulse Oximetry (%) 97 03/21/18 21:00 Constitutional: Yes: Calm, Mild Distress Cardiovascular: Yes: Regular Rate and Rhythm Respiratory: Yes: Regular, CTA Bilaterally Gastrointestinal: Yes: Soft, Hypoactive Bowel Sounds Musculoskeletal: Yes: WNL Extremities: Yes: WNL Neurological: Yes: Alert, Oriented Psychiatric: Yes: Alert, Oriented Labs: CBC, BMP 03/22/18 09:00 - ....Imaging Cat Scan: Report Reviewed, Image Reviewed Assessment/Plan Patient is a 47 year old female with a significant past medical history of c- section, tummy tuck, cholecystectomy (around 8 years ago) presents with epigastric pain and is s/p laproscopic appendectomy for acute appendicitis on 01/2018. She is post of day #3 peritonitis abd pain ac appendicitis post op abd abscess plan continue abx consider if the abscess can be drained no other issues once we have the plan we will make final decision
--- NOTE | 2018-03-22 09:52 | PN ---
Progress Note (short form) - Note Progress Note: 47yo F s/p lap appy, seen and examined at bedside. Pt continues to be on abx and abd pain and cellulitis is improving. Pt complaining of nausea and vomiting , had episode of bilious vomiting last night. Pt denies fever, chills. Pt complaining of diarrhea as well. Last Vital Signs Temp Pulse Resp BP Pulse Ox 99.6 F 110 H 18 118/69 97 03/22/18 06:19 03/22/18 06:19 03/22/18 06:19 03/22/18 06:19 03/21/18 21:00 CBC, BMP 03/22/18 09:00 PE: Gen: A&O X3 Resp: breathing comfortably Abd: soft, nondistended, mild diffuse tenderness, erythema improved over RUQ Ext: no edema Problem List - Problems (1) Appendicitis Assessment/Plan: Plan -will make NPO, most likely pt has postoperative illeus -continue abx -ambulate/OOB -IV fluids Case discussed with Dr. Gamez who agrees with plan Code(s): K37 - UNSPECIFIED APPENDICITIS Qualifiers: Appendicitis type: acute appendicitis Acute appendicitis type: with localized peritonitis Appendicitis gangrene presence: without gangrene Appendicitis perforation presence: without perforation Appendicitis abscess presence: without abscess Qualified Code(s): K35.30 - Acute appendicitis with localized peritonitis, without perforation or gangrene
[2018-03-22 09:53] LABS: ALBUMIN 2.5 g/dl (3.4-5.0); ALK PHOS 118 U/L (45-117); ANION GAP 11 MMOL/L (8-16); BILIRUBIN,TOTAL 0.8 mg/dL (0.2-1); BLOOD UREA NITROGEN 7 mg/dL (7-18); CALCIUM 7.9 mg/dL (8.5-10.1); CHLORIDE 104 mmol/L (98-107); CO2 24 mmol/L (21-32); CREATININE 0.5 mg/dL (0.55-1.3); GLUCOSE,RANDOM 121 mg/dL (74-106); MAGNESIUM 2.1 mg/dL (1.8-2.4); PHOSPHOROUS 2.4 mg/dL (2.5-4.9); POTASSIUM 3.1 mmol/L (3.5-5.1); SGOT/AST 13 U/L (15-37); SGPT/ALT 18 U/L (13-61); SODIUM 139 mmol/L (136-145); TOT PROT 6.3 g/dl (6.4-8.2)
[2018-03-22 10:27] LABS: ERYTHROCYTE SEDIMENTATION RATE 104 mm/hr (0-20)
[2018-03-22] MEDS: POTASSIUM CHLORIDE TABS 20 MEQ TABLET.ER (FP) PO SCH (10:42)
[2018-03-22] MEDS ORDERED: POTASSIUM PHOSPHATE 21 MM in SODIUM CHLORIDE 250 ML IVPB ONE (11:00)
[2018-03-22] MEDS: KCL 10 MEQ IVPB 10 MEQ/100 ML INFUS.BAG IVPB SCH ×3 (11:19→21:32)
[2018-03-22 12:25] LABS: ACANTHOCYTES 0; ANISOCYTOSIS 0; HELMET CELLS 0; HOWELL-JOLLY BODIES 0; MACROCYTOSIS 0; OVALOCYTE 0; PLATELET ESTIMATE NORMAL; ROULEAU 0; SICKELED CELLS 0; TARGET CELLS 0; TEAR DROP CELLS 0; TOXIC GRANULATION 0
--- NOTE | 2018-03-22 20:12 | PN ---
Progress Note, Physician History of Present Illness: 24 HR events: -NPO status -IVF continued -pt with scant bilous vomiting event at 4am. However, later during the course of the day pt with large amount of vomiting. -abd x-ray with distended loops of small bowel in the mid abdomen. -pt ordered for NGT to LWS--> refused - Current Medication List Current Medications: Active Medications Acetaminophen (Tylenol -) 650 mg PO Q6H PRN PRN Reason: FEVER Last Admin: 03/19/18 23:43 Dose: 650 mg Docusate Sodium (Colace Liquid -) 100 mg PO DAILY PRN PRN Reason: CONSTIPATION Last Admin: 03/22/18 10:45 Dose: 100 mg Hydromorphone HCl (Dilaudid Vial -) 2 mg IVPB Q6H PRN PRN Reason: PAIN LEVEL 7 - 10 Last Admin: 03/22/18 10:34 Dose: 2 mg Piperacillin Sod/Tazobactam (Sod 3.375 gm/ Dextrose) 50 mls @ 100 mls/hr IVPB Q8H-IV IKE; Protocol Last Admin: 03/22/18 10:41 Dose: 100 mls/hr Potassium Chloride 10 meq/ (Sodium Chloride) 1,005 mls @ 100 mls/hr IV Q10H IKE Last Admin: 03/21/18 18:38 Dose: Not Given Vancomycin HCl 1,250 mg/ (Dextrose) 250 mls @ 250 mls/2 hr IVPB Q24H IKE; Protocol Lactated Ringer's (Lactated Ringers Solution) 1,000 ml in 1,000 mls @ 100 mls/ hr IV ASDIR IKE Last Admin: 03/22/18 10:49 Dose: 100 mls/hr Ketorolac Tromethamine (Toradol) 10 mg PO Q6HPO PRN PRN Reason: PAIN LEVEL 4 - 6 Stop: 03/24/18 17:59 Last Admin: 03/20/18 18:08 Dose: 10 mg Metoclopramide HCl (Reglan Injection -) 10 mg IVPUSH Q6H PRN PRN Reason: NAUSEA AND/OR VOMITING Last Admin: 03/22/18 04:17 Dose: 10 mg Potassium Chloride (K-Dur -) 20 meq PO DAILY IKE Last Admin: 03/22/18 10:42 Dose: 20 meq Senna (Senna Oral Solution -) 8.8 mg PO HS [facility] Last Admin: 03/22/18 04:21 Dose: 8.8 mg - Objective Vital Signs: Vital Signs Temperature 99.1 F 03/22/18 15:10 Pulse Rate 100 H 03/22/18 15:10 Respiratory Rate 20 03/22/18 15:10 Blood Pressure 139/78 03/22/18 15:10 O2 Sat by Pulse Oximetry (%) 97 03/21/18 21:00 Constitutional: Yes: Well Nourished, No Distress, Calm Eyes: Yes: Conjunctiva Clear, PERRL HENT: Yes: Atraumatic, Normocephalic Neck: Yes: Supple, Trachea Midline Cardiovascular: Yes: Regular Rate and Rhythm Respiratory: Yes: Regular, CTA Bilaterally Gastrointestinal: Yes: Soft, Hypoactive Bowel Sounds ...Rectal Exam: Yes: Deferred Musculoskeletal: Yes: WNL Extremities: Yes: WNL Edema: No Peripheral Pulses WNL: Yes Peripheral Pulses: Left Radial: 2+, Right Radial: 2+ Integumentary: Yes: WNL Wound/Incision: Yes: Clean/Dry, Open to air Neurological: Yes: WNL, Alert, Oriented Psychiatric: Yes: Alert, Oriented Labs: CBC, BMP 03/22/18 09:00 03/22/18 09:00 - ....Imaging X-ray: Report Reviewed (Abd x-ray 03/22/2018: Distended loopds of small bowel in mid abdomen with air fluid levels. No air seen in the colon. clinically correlate for small bowel obstruction.) Problem List - Problems (1) Right lower quadrant abdominal abscess Assessment/Plan: pt followed by surgical team, no intervention currently warranted. continue Zosyn and add vanco x 72hrs trend WBC and temp curve Code(s): K65.1 - PERITONEAL ABSCESS (2) Ileus, postoperative Assessment/Plan: NPO NGT to LWS Code(s): K91.89 - OTH POSTPROCEDURAL COMPLICATIONS AND DISORDERS OF DGSTV SYS; K56.7 - ILEUS, UNSPECIFIED (3) Post-op pain Assessment/Plan: pain control with toradol and dilaudid OOB to chair ambulate with PT reglan PRN nausea Code(s): G89.18 - OTHER ACUTE POSTPROCEDURAL PAIN (4) Appendicitis Code(s): K37 - UNSPECIFIED APPENDICITIS Qualifiers: Appendicitis type: acute appendicitis Acute appendicitis type: with localized peritonitis Appendicitis gangrene presence: without gangrene Appendicitis perforation presence: without perforation Appendicitis abscess presence: without abscess Qualified Code(s): K35.30 - Acute appendicitis with localized peritonitis, without perforation or gangrene Impression/Plan Impression/Plan: bowel regimen with senna and colace SCDs for DVT PPX Full code Visit type - Emergency Visit Emergency Visit: Yes ED Registration Date: 03/20/18 Care time: The patient presented to the Emergency Department on the above date and was hospitalized for further evaluation of their emergent condition. - New Patient This patient is new to me today: No - Critical Care Critical Care patient: No - Discharge Referral Referred to [facility] Med P.C.: No
--- NOTE | 2018-03-22 20:40 | PN ---
Progress Note (short form) - Note Progress Note: several episodes of vomiting today vss Exam benign Xrays show air fluid levels WBC down to 6 S/p appendectomy postop ileus vs abcess continue antibiotics NNGT placed IVF Repeat labs in am Plan for repeat CT tuesday/tuesday
[2018-03-22] MEDS: LACTATED RINGERS SOLUTION 1,000 ML/1,000 ML INFUS.BAG IV SCH (23:00)
[2018-03-23] MEDS ORDERED: PIPERACILLIN/TAZOBACTAM 3.375 GM VIAL IVPB ONE ×3 (02:34→16:49)
[2018-03-23] MEDS ORDERED: DEXTROSE 5%-WATER - 50 ML IVPB ONE ×3 (02:35→16:49)
[2018-03-23] MEDS: PIPERACILLIN/TAZOB 3.375 GM 3.375 GM in DEXTROSE 5%-WATER - 50 ML IVPB SCH ×4 (02:58→17:09)
[2018-03-23] MEDS: METOCLOPRAMIDE HCL INJECTION 10 MG/2 ML VIAL IVPUSH PRN ×2 (03:02→12:54)
[2018-03-23 07:26] LABS: BASO % 0.2 % (0-2.0); EOS % 1.5 % (0-4.5); HEMOGLOBIN 10.3 GM/dL (10.7-15.3); LYMPH % 12.6 % (8-40); MCH 30.7 pg (25.7-33.7); MCHC 35.7 g/dl (32.0-36.0); MEAN CELL VOLUME 86.2 fl (80-96); MONO % 11.5 % (3.8-10.2); NEUT % 74.2 % (42.8-82.8); PLATELET COUNT 265 K/MM3 (134-434); RBC 3.36 M/mm3 (3.60-5.2)
[2018-03-23 07:52] LABS: AMYLASE 41 U/L (25-115); ANION GAP 11 MMOL/L (8-16); BLOOD UREA NITROGEN 9 mg/dL (7-18); CALCIUM 7.7 mg/dL (8.5-10.1); CHLORIDE 103 mmol/L (98-107); CO2 28 mmol/L (21-32); CREATININE 0.4 mg/dL (0.55-1.3); GLUCOSE,RANDOM 103 mg/dL (74-106); LIPASE 220 U/L (73-393); MAGNESIUM 2.2 mg/dL (1.8-2.4); PHOSPHOROUS 3.4 mg/dL (2.5-4.9); SODIUM 142 mmol/L (136-145)
--- NOTE | 2018-03-23 09:12 | PN ---
Progress Note (short form) - Note Progress Note: 47yo F s/p Lap appy, seen and examined at bedside. Pt subsequently developed a postoperative ileus, had NGT placed last night after multiple episodes of vomiting. Pt states that she feels much better with the nausea. Pt denies fever, chills. Pt states abd pain is improved. Last Vital Signs Temp Pulse Resp BP Pulse Ox 98.5 F 99 H 20 126/63 97 03/23/18 05:57 03/23/18 05:57 03/23/18 05:57 03/23/18 05:57 03/21/18 21:00 CBC, BMP 03/23/18 06:00 03/23/18 06:00 PE: Gen: A&O x3 Resp: breathing comfortably Abd: soft, nondistended, nontender, NGT output: 1000ml bilious drainage Problem List - Problems (1) Appendicitis Assessment/Plan: Plan -continue NGT to continues suction, will reevaluate this PM and possible remove NGT tonight -NPO -IV fluids -pain management -OOB/ambulate Code(s): K37 - UNSPECIFIED APPENDICITIS Qualifiers: Appendicitis type: acute appendicitis Acute appendicitis type: with localized peritonitis Appendicitis gangrene presence: without gangrene Appendicitis perforation presence: without perforation Appendicitis abscess presence: without abscess Qualified Code(s): K35.30 - Acute appendicitis with localized peritonitis, without perforation or gangrene
[2018-03-23] MEDS: POTASSIUM CHLORIDE TABS 20 MEQ TABLET.ER (FP) PO SCH (09:51)
[2018-03-23] MEDS: LACTATED RINGERS SOLUTION 1,000 ML/1,000 ML INFUS.BAG IV SCH ×3 (11:22→23:30)
[2018-03-23 11:25] LABS: ACANTHOCYTES 0; ANISOCYTOSIS 0; HELMET CELLS 0; HOWELL-JOLLY BODIES 0; MACROCYTOSIS 0; OVALOCYTE 0; PLATELET ESTIMATE NORMAL; ROULEAU 0; SICKELED CELLS 0; TARGET CELLS 0; TEAR DROP CELLS 0; TOXIC GRANULATION 0
--- NOTE | 2018-03-23 13:25 | PN ---
Physical Exam: 47yo F s/p Lap appy, seen and examined at bedside. Pt subsequently developed a postoperative ileus, had NGT placed last night after multiple episodes of vomiting. Pt states that she feels much better with the nausea. Pt denies fever, chills. Pt states abd pain is improved. SUBJECTIVE: Patient seen and examined OBJECTIVE: Vital Signs Period Temp Pulse Resp BP Sys/Galvan Pulse Ox Last 24 Hr 98.3 F-99.1 F 92-101 20-20 120-139/63-78 96 GENERAL: The patient is awake, alert, and fully oriented, in no acute distress. HEAD: Normal with no signs of trauma. EYES: PERRL, extraocular movements intact, sclera anicteric, conjunctiva clear. No ptosis. ENT: Ears normal, nares patent, oropharynx clear without exudates, moist mucous membranes. NECK: Trachea midline, full range of motion, supple. LUNGS: Breath sounds equal, clear to auscultation bilaterally, no wheezes, no crackles, no accessory muscle use. HEART: Regular rate and rhythm, S1, S2 without murmur, rub or gallop. ABDOMEN: Soft, mildly tender, nondistended, normoactive bowel sounds, no guarding, no rebound, still with the NGT in place. EXTREMITIES: 2+ pulses, warm, well-perfused, no edema. NEUROLOGICAL: Cranial nerves II through XII grossly intact. Normal speech, gait not observed. PSYCH: Normal mood, normal affect. SKIN: Warm, dry, normal turgor, no rashes or lesions noted Laboratory Results - last 24 hr 03/23/18 03/23/18 06:00 06:00 WBC 6.0 RBC 3.36 L Hgb 10.3 L Hct 29.0 L MCV 86.2 MCH 30.7 MCHC 35.7 RDW 14.0 Plt Count 265 MPV 8.0 Absolute Neuts (auto) 4.5 Neutrophils % 74.2 Neutrophils % (Manual) 65.0 Band Neutrophils % 8.0 Lymphocytes % 12.6 Lymphocytes % (Manual) 16.0 Monocytes % 11.5 H Monocytes % (Manual) 3 L Eosinophils % 1.5 Eosinophils % (Manual) 2.0 Basophils % 0.2 Basophils % (Manual) 0.0 Myelocytes % (Man) 3 H D Promyelocytes % (Man) 0 Blast Cells % (Manual) 0 Nucleated RBC % 0 Metamyelocytes 1 D Hypochromia 0 Toxic Granulation 0 Dohle Bodies 0 Platelet Estimate Normal Polychromasia 0 Poikilocytosis 0 Basophilic Stippling 0 Anisocytosis 0 Microcytosis 0 Macrocytosis 0 Spherocytes 0 Sickle Cells 0 Target Cells 0 Tear Drop Cells 0 Ovalocytes 0 Stomatocytes 0 Helmet Cells 0 [place] Bodies 0 [place] Rings 0 Brad Cells 0 Acanthocytes (Spur) 0 Rouleaux 0 Fragmented RBCs 0 Schistocytes 0 Sodium 142 Potassium 3.0 L Chloride 103 Carbon Dioxide 28 Anion Gap 11 BUN 9 Creatinine 0.4 L Creat Clearance w eGFR > 60 Random Glucose 103 Calcium 7.7 L Phosphorus 3.4 Magnesium 2.2 Total Amylase 41 Lipase 220 Active Medications Generic Name Dose Route Start Last Admin Trade Name Freq PRN Reason Stop Dose Admin Acetaminophen 650 mg 03/19/18 21:22 03/19/18 23:43 Tylenol - PO 650 mg Q6H PRN Administration FEVER Docusate Sodium 100 mg 03/21/18 09:44 03/22/18 10:45 Colace Liquid - PO 100 mg DAILY PRN Administration CONSTIPATION Piperacillin Sod/Tazobactam 50 mls @ 100 mls/hr 03/20/18 18:00 03/23/18 09:51 Sod 3.375 gm/ Dextrose IVPB 100 mls/hr Q8H-IV IKE Administration Protocol Vancomycin HCl 1,250 mg/ 250 mls @ 250 mls/2 hr 03/22/18 10:30 Dextrose IVPB Q24H IKE Protocol Lactated Ringer's 1,000 ml in 1,000 mls @ 125 mls/hr 03/22/18 23:30 03/23/18 11:22 Lactated Ringers Solution IV 125 mls/hr ASDIR IKE Administration Ketorolac Tromethamine 10 mg 03/19/18 14:18 03/20/18 18:08 Toradol PO 03/24/18 17:59 10 mg Q6HPO PRN Administration PAIN LEVEL 4 - 6 Metoclopramide HCl 10 mg 03/21/18 10:05 03/23/18 12:54 Reglan Injection - IVPUSH 10 mg Q6H PRN Administration NAUSEA AND/OR VOMITING Potassium Chloride 20 meq 03/22/18 10:15 03/23/18 09:51 K-Dur - PO 20 meq DAILY IKE Administration Senna 8.8 mg 03/22/18 03:55 03/22/18 21:38 Senna Oral Solution - PO Not Given HS IKE ASSESSMENT/PLAN: (1) Acute Appendicitis Assessment/Plan: Plan - s/o Lap appendectomy > Complicated by Paralytic ileus >Now moving bowel -continue NGT to continues suction, will reevaluate this PM and possible remove NGT tonight - While feeling much better with NGT decompression >> would consider clear liquid very slowy and then advance as tolerated, -IV fluids -pain is better controlled > please avoid narcotics for now given paralytic ileus. -OOB/ambulate THe plan was d/w the patient at bedside. Visit type - Emergency Visit Emergency Visit: Yes ED Registration Date: 03/20/18 Care time: The patient presented to the Emergency Department on the above date and was hospitalized for further evaluation of their emergent condition. - New Patient This patient is new to me today: Yes Date on this admission: 03/23/18 - Critical Care Critical Care patient: No - Discharge Referral Referred to [facility] Med P.C.: No
[2018-03-23] MEDS: KCL 10 MEQ IVPB 10 MEQ/100 ML INFUS.BAG IVPB SCH ×3 (14:45→17:09)
--- NOTE | 2018-03-23 17:00 | PN ---
Progress Note, Physician History of Present Illness: Pt seen and examined. Events noted. NGT remains in place. Denies abdominal pain , currently afebrile. Reports 3 BMs today. - Current Medication List Current Medications: Active Medications Acetaminophen (Tylenol -) 650 mg PO Q6H PRN PRN Reason: FEVER Last Admin: 03/19/18 23:43 Dose: 650 mg Docusate Sodium (Colace Liquid -) 100 mg PO DAILY PRN PRN Reason: CONSTIPATION Last Admin: 03/22/18 10:45 Dose: 100 mg Piperacillin Sod/Tazobactam (Sod 3.375 gm/ Dextrose) 50 mls @ 100 mls/hr IVPB Q8H-IV IKE; Protocol Last Admin: 03/23/18 09:51 Dose: 100 mls/hr Vancomycin HCl 1,250 mg/ (Dextrose) 250 mls @ 250 mls/2 hr IVPB Q24H IKE; Protocol Lactated Ringer's (Lactated Ringers Solution) 1,000 ml in 1,000 mls @ 125 mls/ hr IV ASDIR IKE Last Admin: 03/23/18 11:22 Dose: 125 mls/hr Potassium Chloride (Potassium Chloride 10 Meq Premix Ivpb -) 10 meq in 100 mls @ 100 mls/hr IVPB Q60M IKE Stop: 03/23/18 17:29 Last Admin: 03/23/18 15:41 Dose: 100 mls/hr Ketorolac Tromethamine (Toradol) 10 mg PO Q6HPO PRN PRN Reason: PAIN LEVEL 4 - 6 Stop: 03/24/18 17:59 Last Admin: 03/20/18 18:08 Dose: 10 mg Metoclopramide HCl (Reglan Injection -) 10 mg IVPUSH Q6H PRN PRN Reason: NAUSEA AND/OR VOMITING Last Admin: 03/23/18 12:54 Dose: 10 mg Potassium Chloride (K-Dur -) 20 meq PO DAILY IKE Last Admin: 03/23/18 09:51 Dose: 20 meq Senna (Senna Oral Solution -) 8.8 mg PO HS IKE Last Admin: 03/22/18 21:38 Dose: Not Given - Objective Vital Signs: Vital Signs Temperature 98.8 F 03/23/18 13:38 Pulse Rate 85 03/23/18 13:38 Respiratory Rate 20 03/23/18 13:38 Blood Pressure 115/69 03/23/18 13:38 O2 Sat by Pulse Oximetry (%) 96 03/23/18 09:00 Constitutional: Yes: No Distress, Calm Cardiovascular: Yes: Regular Rate and Rhythm Respiratory: Yes: Regular Gastrointestinal: Yes: Normal Bowel Sounds, Soft, Tenderness (mild, to deep palpation), Other (+NGT) Genitourinary: Yes: WNL Extremities: Yes: WNL Neurological: Yes: Alert, Oriented Labs: CBC, BMP 03/23/18 06:00 03/23/18 06:00 Microbiology 03/20/18 13:20 Blood - Peripheral Venous Blood Culture - Preliminary NO GROWTH OBTAINED AFTER 72 HOURS, INCUBATION TO CONTINUE FOR 2 DAYS. 03/20/18 13:05 Blood - Peripheral Venous Blood Culture - Preliminary NO GROWTH OBTAINED AFTER 72 HOURS, INCUBATION TO CONTINUE FOR 2 DAYS. Problem List - Problems (1) Appendicitis Code(s): K37 - UNSPECIFIED APPENDICITIS Qualifiers: Appendicitis type: acute appendicitis Acute appendicitis type: with localized peritonitis Appendicitis gangrene presence: without gangrene Appendicitis perforation presence: without perforation Appendicitis abscess presence: without abscess Qualified Code(s): K35.30 - Acute appendicitis with localized peritonitis, without perforation or gangrene (2) Ileus, postoperative Code(s): K91.89 - OTH POSTPROCEDURAL COMPLICATIONS AND DISORDERS OF DGSTV SYS; K56.7 - ILEUS, UNSPECIFIED (3) Right lower quadrant abdominal abscess Code(s): K65.1 - PERITONEAL ABSCESS Assessment/Plan s/p appendectomy abdominal abscess post-op ileus - continue antibiotics for now, consider drainage of abscess - repeat CT scan planned, f/u abdominal xray - surgery following pt afebrile, leukocytosis resolved
[2018-03-23] MEDS: SENNOSIDES 8.8 MG/5 ML BULK BOTTLE PO SCH (21:12)
[2018-03-24] MEDS ORDERED: PIPERACILLIN/TAZOBACTAM 3.375 GM VIAL IVPB ONE ×3 (00:46→17:03)
[2018-03-24] MEDS ORDERED: DEXTROSE 5%-WATER - 50 ML IVPB ONE ×3 (00:46→17:03)
[2018-03-24] MEDS: PIPERACILLIN/TAZOB 3.375 GM 3.375 GM in DEXTROSE 5%-WATER - 50 ML IVPB SCH ×3 (01:13→17:15)
[2018-03-24] MEDS: ACETAMINOPHEN 325 MG TABLET (FP) PO PRN (02:10)
[2018-03-24] MEDS: LACTATED RINGERS SOLUTION 1,000 ML/1,000 ML INFUS.BAG IV SCH ×3 (06:33→23:30)
[2018-03-24 07:33] LABS: ANION GAP 11 MMOL/L (8-16); BLOOD UREA NITROGEN 11 mg/dL (7-18); CALCIUM 7.7 mg/dL (8.5-10.1); CHLORIDE 106 mmol/L (98-107); CO2 26 mmol/L (21-32); CREATININE 0.4 mg/dL (0.55-1.3); GLUCOSE,RANDOM 78 mg/dL (74-106); POTASSIUM 3.1 mmol/L (3.5-5.1); SODIUM 142 mmol/L (136-145)
[2018-03-24] MEDS ORDERED: POTASSIUM CHLORIDE 10 MEQ PREMIX IVPB (POTASSIUM RIDER) IVPB SCH ×2 (08:15→08:45)
[2018-03-24] MEDS: POTASSIUM CHLORIDE TABS 20 MEQ TABLET.ER (FP) PO SCH (09:29)
[2018-03-24] MEDS: KCL 10 MEQ IVPB 10 MEQ/100 ML INFUS.BAG IVPB SCH ×6 (09:29→21:18)
--- NOTE | 2018-03-24 10:02 | PN ---
Progress Note (short form) - Note Progress Note: POD 7, s/p lap appy, c/b postoperative ileus Pt seen and examined. States she is doing well this morning. NGT was removed by Dr Morley last night. Pt reports feeling well since. Passing flatus. Denies n/ v. Had bowel movement x 2 last night, soft. Denies cp/sob, le pain/edema. Vital Signs Temp 98.3 F 03/24/18 06:17 Pulse 71 03/24/18 06:17 Resp 19 03/24/18 06:17 BP 115/64 03/24/18 06:17 Pulse Ox 97 03/24/18 09:00 Intake & Output 03/23/18 03/23/18 03/24/18 11:59 23:59 11:59 Intake Total 1750 1300 1300 Output Total 1150 950 Balance 123 634 1630 Intake: IV 1857 122 5720 LACTATED RINGERS SOLUTION 2209 885 9437 1,000 ml In 1,000 ml @ 125 mls/hr IV ASDIR IKE Rx#:[id number] IVPB 450 350 50 Output: Gastric Drainage 1150 950 Other: Voiding Method Toilet Toilet Toilet # Unmeasured Voids Void 2 4 3 Bowel Movement No No No # Bowel Movements 1 CBC, BMP 03/23/18 06:00 03/24/18 06:00 ABD XRAY: 2 views of the bowel again reveal distended small bowel loops compatible with a small bowel or partial small bowel obstruction. There is evidence of abdominal sutures and clips. Free air is not seen. The lung bases appear well aerated. PE: Gen: A&O x3 Resp: breathing comfortably, cta b/l anteriorly Abd: Incisions c/d/i, no erythema or drainage. Abdo soft, nondistended, nontender, hypoactive bowel sounds Ext; soft, nt, no edema A/P: 47 y/o female with PMHx , tummy tuck, cholecystectomy (around 8 years ago) admitted 03/17 with acute abdominal pain, found to have acute appendicitis, now POD 7, s/p laparoscopic appendectomy, c/b post op ileus. No n/v since NGT removed last night Afebrile, vss, labs stable. -Advance to clears, monitor for n/v -Pain regimen with Toradol 30mg q6hrs prn, Acetaminophen 650mg q6hrs prn -Incentive spirometry -Continue IV ABX -Monitor VS -Serial abdominal exams above d/w attending Dr Morley
--- NOTE | 2018-03-24 10:51 | PN ---
Physical Exam: SUBJECTIVE: Patient seen and examined, At this time she has no complaints, states that she has had BM, been passing gas and has been urinating with no complaints and her abdominal pain has significantly improved, she has been also tolerating fluids with the medication. OBJECTIVE: Vital Signs Period Temp Pulse Resp BP Sys/Galvan Pulse Ox Last 24 Hr 98.1 F-98.8 F 71-98 18-20 107-124/59-69 97-97 GENERAL: The patient is awake, alert, and fully oriented, in no acute distress. HEAD: Normal with no signs of trauma. EYES: PERRL, extraocular movements intact, sclera anicteric, conjunctiva clear. No ptosis. ENT: Ears normal, nares patent, oropharynx clear without exudates, moist mucous membranes. NECK: Trachea midline, full range of motion, supple. LUNGS: Breath sounds equal, clear to auscultation bilaterally, no wheezes, no crackles, no accessory muscle use. HEART: Regular rate and rhythm, S1, S2 without murmur, rub or gallop. ABDOMEN: Soft, BS hypoactive, has minimal generalized tenderness with no peritoneal signs. EXTREMITIES: 2+ pulses, warm, well-perfused, no edema. NEUROLOGICAL: Cranial nerves II through XII grossly intact. Normal speech, gait not observed. PSYCH: Normal mood, normal affect. SKIN: Warm, dry, normal turgor, no rashes or lesions noted Laboratory Results - last 24 hr 03/22/18 03/23/18 03/24/18 09:00 06:00 06:00 Neutrophils % (Manual) 65.0 Band Neutrophils % 8.0 Lymphocytes % (Manual) 16.0 Monocytes % (Manual) 3 L Eosinophils % (Manual) 2.0 Basophils % (Manual) 0.0 Myelocytes % (Man) 3 H D Promyelocytes % (Man) 0 Blast Cells % (Manual) 0 Metamyelocytes 1 D Hypochromia 0 Toxic Granulation 0 Dohle Bodies 0 Platelet Estimate Normal Polychromasia 0 Poikilocytosis 0 Basophilic Stippling 0 Anisocytosis 0 Microcytosis 0 Macrocytosis 0 Spherocytes 0 Sickle Cells 0 Target Cells 0 Tear Drop Cells 0 Ovalocytes 0 Stomatocytes 0 Helmet Cells 0 [place] Bodies 0 [place] Rings 0 Brad Cells 0 Acanthocytes (Spur) 0 Rouleaux 0 Fragmented RBCs 0 Schistocytes 0 Sodium 142 Potassium 3.1 L Chloride 106 Carbon Dioxide 26 Anion Gap 11 BUN 11 Creatinine 0.4 L Creat Clearance w eGFR > 60 Random Glucose 78 Calcium 7.7 L Ionized Calcium 5.0 Active Medications Generic Name Dose Route Start Last Admin Trade Name Jamalq PRN Reason Stop Dose Admin Acetaminophen 650 mg 03/19/18 21:22 03/24/18 02:10 Tylenol - PO 650 mg Q6H PRN Administration FEVER Docusate Sodium 100 mg 03/21/18 09:44 03/22/18 10:45 Colace Liquid - PO 100 mg DAILY PRN Administration CONSTIPATION Piperacillin Sod/Tazobactam 50 mls @ 100 mls/hr 03/20/18 18:00 03/24/18 09:29 Sod 3.375 gm/ Dextrose IVPB 100 mls/hr Q8H-IV IKE Administration Protocol Vancomycin HCl 1,250 mg/ 250 mls @ 250 mls/2 hr 03/22/18 10:30 Dextrose IVPB Q24H IKE Protocol Lactated Ringer's 1,000 ml in 1,000 mls @ 125 mls/hr 03/22/18 23:30 03/24/18 06:33 Lactated Ringers Solution IV 125 mls/hr ASDIR IKE Administration Potassium Chloride 10 meq in 100 mls @ 100 mls/hr 03/24/18 09:00 03/24/18 09: 29 Potassium Chloride 10 Meq Premix Ivpb - IVPB 03/24/18 14:59 100 mls/hr Q60M IKE Administration Ketorolac Tromethamine 10 mg 03/19/18 14:18 03/20/18 18:08 Toradol PO 03/24/18 17:59 10 mg Q6HPO PRN Administration PAIN LEVEL 4 - 6 Metoclopramide HCl 10 mg 03/21/18 10:05 03/23/18 12:54 Reglan Injection - IVPUSH 10 mg Q6H PRN Administration NAUSEA AND/OR VOMITING Potassium Chloride 20 meq 03/22/18 10:15 03/24/18 09:29 K-Dur - PO 20 meq DAILY IKE Administration Senna 8.8 mg 03/22/18 03:55 03/23/18 21:12 Senna Oral Solution - PO Not Given HS [facility] ASSESSMENT/PLAN: She is a 47 Y/O F W HX of surgeries in the past P/W RLQ abdominal pain found to have appandecitis S/P surgical intervention, she had illeus initially which has improved today. Appendicitis: S/P surgical apandectomy, on IV vanc and zosyn at this time, which will DC today, pending ID recs. BCX are negative and abdominal pain has improved hypokalemia: likely due to decreased po intake , is repleating with IV and po. Illeus: has had BM this morning an no more abdominal pain, will start on clear liquid diet. DVT PPX: heparin Diet: clear liquid diet. Dispo: likely home tomorrow if tolerating po Visit type - Emergency Visit Emergency Visit: No - New Patient This patient is new to me today: No - Critical Care Critical Care patient: No - Discharge Referral Referred to [facility] Med P.C.: No
--- NOTE | 2018-03-24 14:22 | PN ---
Progress Note, Physician History of Present Illness: continues to improves stable final plan awaited - Current Medication List Current Medications: Active Medications Acetaminophen (Tylenol -) 650 mg PO Q6H PRN PRN Reason: FEVER Last Admin: 03/24/18 02:10 Dose: 650 mg Docusate Sodium (Colace Liquid -) 100 mg PO DAILY PRN PRN Reason: CONSTIPATION Last Admin: 03/22/18 10:45 Dose: 100 mg Piperacillin Sod/Tazobactam (Sod 3.375 gm/ Dextrose) 50 mls @ 100 mls/hr IVPB Q8H-IV IKE; Protocol Last Admin: 03/24/18 09:29 Dose: 100 mls/hr Vancomycin HCl 1,250 mg/ (Dextrose) 250 mls @ 250 mls/2 hr IVPB Q24H IKE; Protocol Lactated Ringer's (Lactated Ringers Solution) 1,000 ml in 1,000 mls @ 125 mls/ hr IV ASDIR IKE Last Admin: 03/24/18 06:33 Dose: 125 mls/hr Potassium Chloride (Potassium Chloride 10 Meq Premix Ivpb -) 10 meq in 100 mls @ 100 mls/hr IVPB Q60M IKE Stop: 03/24/18 14:59 Last Admin: 03/24/18 13:55 Dose: 100 mls/hr Metoclopramide HCl (Reglan Injection -) 10 mg IVPUSH Q6H PRN PRN Reason: NAUSEA AND/OR VOMITING Last Admin: 03/23/18 12:54 Dose: 10 mg Potassium Chloride (K-Dur -) 20 meq PO DAILY [facility] Last Admin: 03/24/18 09:29 Dose: 20 meq Senna (Senna Oral Solution -) 8.8 mg PO HS IKE Last Admin: 03/23/18 21:12 Dose: Not Given - Objective Vital Signs: Vital Signs Temperature 97.9 F 03/24/18 13:55 Pulse Rate 80 03/24/18 13:55 Respiratory Rate 20 03/24/18 13:55 Blood Pressure 115/61 03/24/18 13:55 O2 Sat by Pulse Oximetry (%) 97 03/24/18 09:00 Constitutional: Yes: No Distress, Calm Cardiovascular: Yes: Regular Rate and Rhythm Respiratory: Yes: Regular, CTA Bilaterally Gastrointestinal: Yes: Normal Bowel Sounds, Soft Musculoskeletal: Yes: WNL Extremities: Yes: WNL Psychiatric: Yes: Alert, Oriented Labs: CBC, BMP 03/23/18 06:00 03/24/18 06:00 Assessment/Plan Patient is a 47 year old female with a significant past medical history of c- section, tummy tuck, cholecystectomy (around 8 years ago) presents with epigastric pain and is s/p laproscopic appendectomy for acute appendicitis on 01/2018. She is post of day #3 peritonitis abd pain ac appendicitis post op abd abscess plan continue abx plan for the abscess no other issues once we have the plan we will make final decision
[2018-03-24] MEDS: VANCOMYCIN 1,250 MG in DEXTROSE 5%-WATER - 250 ML IVPB SCH ×2 (15:14→15:24)
[2018-03-24] MEDS ORDERED: PT OWN MED DRAWER 7, Y5N ONE (20:30)
[2018-03-24] MEDS ORDERED: KCL 10 MEQ IVPB 10 MEQ/100 ML INFUS.BAG IVPB SCH (20:45)
[2018-03-24] MEDS: SENNOSIDES 8.8 MG/5 ML BULK BOTTLE PO SCH (21:18)
[2018-03-25] MEDS ORDERED: PIPERACILLIN/TAZOBACTAM 3.375 GM VIAL IVPB ONE ×3 (02:33→16:31)
[2018-03-25] MEDS ORDERED: DEXTROSE 5%-WATER - 50 ML IVPB ONE ×3 (02:34→16:31)
[2018-03-25] MEDS: PIPERACILLIN/TAZOB 3.375 GM 3.375 GM in DEXTROSE 5%-WATER - 50 ML IVPB SCH ×3 (02:35→16:59)
[2018-03-25] MEDS: POTASSIUM CHLORIDE TABS 20 MEQ TABLET.ER (FP) PO SCH (09:06)
[2018-03-25 10:20] LABS: HEMATOCRIT 29.6 % (32.4-45.2); HEMOGLOBIN 10.4 GM/dL (10.7-15.3); MCH 30.5 pg (25.7-33.7); MCHC 35.3 g/dl (32.0-36.0); MEAN CELL VOLUME 86.5 fl (80-96); MEAN PLT VOLUME 7.8 fl (7.5-11.1); PLATELET COUNT 339 K/MM3 (134-434); RBC 3.42 M/mm3 (3.60-5.2); RDW 13.9 % (11.6-15.6); WHITE BLOOD COUNT 8.4 K/mm3 (4.0-10.0)
[2018-03-25 10:48] LABS: ANION GAP 8 MMOL/L (8-16); BLOOD UREA NITROGEN 6 mg/dL (7-18); CALCIUM 7.7 mg/dL (8.5-10.1); CHLORIDE 104 mmol/L (98-107); CO2 28 mmol/L (21-32); CREATININE 0.5 mg/dL (0.55-1.3); GLUCOSE,RANDOM 128 mg/dL (74-106); POTASSIUM 3.4 mmol/L (3.5-5.1); SODIUM 140 mmol/L (136-145)
[2018-03-25] MEDS ORDERED: POTASSIUM CHLORIDE TABS 20 MEQ TABLET.ER (FP) PO ONE (11:28)
--- NOTE | 2018-03-25 11:32 | PN ---
Progress Note (short form) - Note Progress Note: s/p appendectomy continues to experience RLQ pain VSS Afebrile RLQ tenderness PLan Ct Scan of Abdomen with contrast
--- NOTE | 2018-03-25 14:15 | PN ---
Progress Note, Physician History of Present Illness: Pt c/o Rt lower abd pain and nausea but no vomiting. Remains afebrile. Had CT abd done today. - Current Medication List Current Medications: Active Medications Acetaminophen (Tylenol -) 650 mg PO Q6H PRN PRN Reason: FEVER Last Admin: 03/24/18 02:10 Dose: 650 mg Docusate Sodium (Colace Liquid -) 100 mg PO DAILY PRN PRN Reason: CONSTIPATION Last Admin: 03/22/18 10:45 Dose: 100 mg Piperacillin Sod/Tazobactam (Sod 3.375 gm/ Dextrose) 50 mls @ 100 mls/hr IVPB Q8H-IV IKE; Protocol Last Admin: 03/25/18 09:06 Dose: 100 mls/hr Lactated Ringer's (Lactated Ringers Solution) 1,000 ml in 1,000 mls @ 125 mls/ hr IV ASDIR IKE Last Admin: 03/24/18 23:30 Dose: Not Given Metoclopramide HCl (Reglan Injection -) 10 mg IVPUSH Q6H PRN PRN Reason: NAUSEA AND/OR VOMITING Last Admin: 03/23/18 12:54 Dose: 10 mg Potassium Chloride (K-Dur -) 20 meq PO DAILY IKE Last Admin: 03/25/18 09:06 Dose: 20 meq Senna (Senna Oral Solution -) 8.8 mg PO HS IKE Last Admin: 03/24/18 21:18 Dose: Not Given - Objective Vital Signs: Vital Signs Temperature 98.1 F 03/25/18 09:04 Pulse Rate 75 03/25/18 09:04 Respiratory Rate 18 03/25/18 09:04 Blood Pressure 103/65 03/25/18 09:04 O2 Sat by Pulse Oximetry (%) 98 03/24/18 21:00 Constitutional: Yes: No Distress, Calm Cardiovascular: Yes: Regular Rate and Rhythm Respiratory: Yes: Regular Gastrointestinal: Yes: Normal Bowel Sounds, Soft, Tenderness (RLQ) Genitourinary: Yes: WNL Extremities: Yes: WNL Neurological: Yes: Alert, Oriented Labs: CBC, BMP 03/25/18 09:55 03/25/18 09:55 Problem List - Problems (1) Appendicitis Code(s): K37 - UNSPECIFIED APPENDICITIS Qualifiers: Appendicitis type: acute appendicitis Acute appendicitis type: with localized peritonitis Appendicitis gangrene presence: without gangrene Appendicitis perforation presence: without perforation Appendicitis abscess presence: without abscess Qualified Code(s): K35.30 - Acute appendicitis with localized peritonitis, without perforation or gangrene (2) Ileus, postoperative Code(s): K91.89 - OTH POSTPROCEDURAL COMPLICATIONS AND DISORDERS OF DGSTV SYS; K56.7 - ILEUS, UNSPECIFIED (3) Right lower quadrant abdominal abscess Code(s): K65.1 - PERITONEAL ABSCESS Assessment/Plan Acute appendicitis/Peritonitis s/p appendectomy abdominal abscess post-op ileus - continue current antibiotic - f/u CT scan results pt afebrile, without leukocytosis
--- NOTE | 2018-03-25 14:24 | HOSP ---
Subjective - Review of Symptoms Events since last encounter: she is better still have pain in her stomach but has no fever or chills she were able to tolerate clear liquid fluids General: No: Chills, Night Sweats, Fatigue, Malaise, Appetite, Other HEENT: No: Head Aches, Visual Changes, Eye Pain, Ear Pain, Dysphasia, Sinus Congestion, Post Nasal Drip, Sore Throat, Other Pulmonary: No: Dyspnea, Cough, Pleuritic Chest Pain, Other Cardiovascular: No: Chest Pain, Palpitations, Orthopnea, Paroxysmal Noc. Dyspnea , Edema, Light Headedness, Other Gastrointestinal: Yes: Abdominal Pain Genitourinary: No: Dysuria, NOSYM, Frequency, Incontinence, Hematuria, Retention , Other Musculoskeletal: No: No Symptoms, Back Pain, Crepitus, Decreased ROM, Extremity Pain, Joint Pain, Joint Swelling, Muscle Pain, Muscle Cramps, Muscle Weakness, Other Neurological: No: Weakness, Numbness, Incoordination, Change in speech, Confusion, Seizures, Other Physical Examination Vital Signs: Vital Signs Temperature 98.1 F 03/25/18 09:04 Pulse Rate 75 03/25/18 09:04 Respiratory Rate 18 03/25/18 09:04 Blood Pressure 103/65 03/25/18 09:04 O2 Sat by Pulse Oximetry (%) 98 03/24/18 21:00 Constitutional: Yes: Well Nourished, No Distress Eyes: Yes: Conjunctiva Clear HENT: Yes: Atraumatic Neck: Yes: Supple Cardiovascular: Yes: Regular Rate and Rhythm Respiratory: Yes: Regular, CTA Bilaterally Gastrointestinal: Yes: Tenderness (defuse , no rebound and normal bs) Labs: CBC, BMP 03/25/18 09:55 03/25/18 09:55 Hospitalist Encounter Assessment: Current Medications Acetaminophen (Tylenol -) 650 mg PO Q6H PRN PRN Reason: FEVER Last Admin: 03/24/18 02:10 Dose: 650 mg Docusate Sodium (Colace Liquid -) 100 mg PO DAILY PRN PRN Reason: CONSTIPATION Last Admin: 03/22/18 10:45 Dose: 100 mg Piperacillin Sod/Tazobactam (Sod 3.375 gm/ Dextrose) 50 mls @ 100 mls/hr IVPB Q8H-IV IKE; Protocol Last Admin: 03/25/18 09:06 Dose: 100 mls/hr Lactated Ringer's (Lactated Ringers Solution) 1,000 ml in 1,000 mls @ 125 mls/ hr IV ASDIR [facility] Last Admin: 03/24/18 23:30 Dose: Not Given Metoclopramide HCl (Reglan Injection -) 10 mg IVPUSH Q6H PRN PRN Reason: NAUSEA AND/OR VOMITING Last Admin: 03/23/18 12:54 Dose: 10 mg Potassium Chloride (K-Dur -) 20 meq PO DAILY [facility] Last Admin: 03/25/18 09:06 Dose: 20 meq Senna (Senna Oral Solution -) 8.8 mg PO HS [facility] Last Admin: 03/24/18 21:18 Dose: Not Given She is a 47 Y/O F W HX of surgeries in the past P/W RLQ abdominal pain found to have appandecitis S/P surgical intervention, she had illeus initially which has improved today. she has low k and but on 20 daily of k continue iv abx advance diet anemia she came with normal hb and it is probably due to inflammation acute sickness keep an eye on it
[2018-03-25] MEDS: LACTATED RINGERS SOLUTION 1,000 ML/1,000 ML INFUS.BAG IV SCH (16:58)
[2018-03-25] MEDS: SENNOSIDES 8.8 MG/5 ML BULK BOTTLE PO SCH (22:22)
[2018-03-26] MEDS ORDERED: DEXTROSE 5%-WATER - 50 ML IVPB ONE ×4 (02:16→20:37)
[2018-03-26] MEDS ORDERED: PIPERACILLIN/TAZOBACTAM 3.375 GM VIAL IVPB ONE ×4 (02:16→20:37)
[2018-03-26] MEDS: PIPERACILLIN/TAZOB 3.375 GM 3.375 GM in DEXTROSE 5%-WATER - 50 ML IVPB SCH ×3 (02:22→17:18)
--- NOTE | 2018-03-26 09:28 | PN ---
Physical Exam: SUBJECTIVE: Patient seen and examined She has no pain or nausea or vomiting she ate her liquid diet no reaction she is hungry today no fever or chills OBJECTIVE: Vital Signs Period Temp Pulse Resp BP Sys/Galvan Pulse Ox Last 24 Hr 98.3 F-99 F 69-88 18-18 98-107/60-74 95 GENERAL: The patient is awake, alert, and fully oriented, in no acute distress. HEAD: Normal with no signs of trauma. EYES: PERRL, extraocular movements intact, sclera anicteric, conjunctiva clear. No ptosis. ENT: Ears normal, nares patent, oropharynx clear without exudates, moist mucous membranes. NECK: Trachea midline, full range of motion, supple. LUNGS: Breath sounds equal, clear to auscultation bilaterally, no wheezes, no crackles, no accessory muscle use. HEART: Regular rate and rhythm, S1, S2 without murmur, rub or gallop. ABDOMEN: Soft, nontender, nondistended, normoactive bowel sounds, no guarding, no rebound, no hepatosplenomegaly, no masses. EXTREMITIES: 2+ pulses, warm, well-perfused, no edema. NEUROLOGICAL: Cranial nerves II through XII grossly intact. Normal speech, gait not observed. PSYCH: Normal mood, normal affect. SKIN: Warm, dry, normal turgor, no rashes or lesions noted Laboratory Results - last 24 hr 03/25/18 03/25/18 09:55 09:55 WBC 8.4 RBC 3.42 L Hgb 10.4 L Hct 29.6 L MCV 86.5 MCH 30.5 MCHC 35.3 RDW 13.9 Plt Count 339 D MPV 7.8 Sodium 140 Potassium 3.4 L Chloride 104 Carbon Dioxide 28 Anion Gap 8 BUN 6 L Creatinine 0.5 L Creat Clearance w eGFR > 60 Random Glucose 128 H Calcium 7.7 L Active Medications Generic Name Dose Route Start Last Admin Trade Name Freq PRN Reason Stop Dose Admin Acetaminophen 650 mg 03/19/18 21:22 03/24/18 02:10 Tylenol - PO 650 mg Q6H PRN Administration FEVER Docusate Sodium 100 mg 03/21/18 09:44 03/22/18 10:45 Colace Liquid - PO 100 mg DAILY PRN Administration CONSTIPATION Piperacillin Sod/Tazobactam 50 mls @ 100 mls/hr 03/20/18 18:00 03/26/18 02:22 Sod 3.375 gm/ Dextrose IVPB 100 mls/hr Q8H-IV IKE Administration Protocol Lactated Ringer's 1,000 ml in 1,000 mls @ 125 mls/hr 03/22/18 23:30 03/25/18 16:58 Lactated Ringers Solution IV 125 mls/hr ASDIR IKE Administration Metoclopramide HCl 10 mg 03/21/18 10:05 03/23/18 12:54 Reglan Injection - IVPUSH 10 mg Q6H PRN Administration NAUSEA AND/OR VOMITING Potassium Chloride 20 meq 03/22/18 10:15 03/25/18 09:06 K-Dur - PO 20 meq DAILY IKE Administration Senna 8.8 mg 03/22/18 03:55 03/25/18 22:22 Senna Oral Solution - PO 8.8 mg HS IKE Administration ASSESSMENT/PLAN: She is a 47 Y/O F W HX of surgeries in the past P/W RLQ abdominal pain found to have appandecitis S/P surgical intervention, she had illeus initially which has improved today. Her ct scan is 2 residual abscesses continue iv abx advance diet to regular anemia she came with normal hb and it is probably due to inflammation acute sickness today hb is 10.4 and normal wbc count
[2018-03-26] MEDS: POTASSIUM CHLORIDE TABS 20 MEQ TABLET.ER (FP) PO SCH (10:49)
--- NOTE | 2018-03-26 13:01 | PN ---
Progress Note, Physician History of Present Illness: Pt states she has some abdominal pain but improved. No nausea/vomiting. Remains afebrile. Tolerating diet. CT Abd/Pelvis results noted. - Current Medication List Current Medications: Active Medications Acetaminophen (Tylenol -) 650 mg PO Q6H PRN PRN Reason: FEVER Last Admin: 03/24/18 02:10 Dose: 650 mg Docusate Sodium (Colace Liquid -) 100 mg PO DAILY PRN PRN Reason: CONSTIPATION Last Admin: 03/22/18 10:45 Dose: 100 mg Piperacillin Sod/Tazobactam (Sod 3.375 gm/ Dextrose) 50 mls @ 100 mls/hr IVPB Q8H-IV IKE; Protocol Last Admin: 03/26/18 10:49 Dose: 100 mls/hr Lactated Ringer's (Lactated Ringers Solution) 1,000 ml in 1,000 mls @ 125 mls/ hr IV ASDIR IKE Last Admin: 03/25/18 16:58 Dose: 125 mls/hr Metoclopramide HCl (Reglan Injection -) 10 mg IVPUSH Q6H PRN PRN Reason: NAUSEA AND/OR VOMITING Last Admin: 03/23/18 12:54 Dose: 10 mg Potassium Chloride (K-Dur -) 20 meq PO DAILY IKE Last Admin: 03/26/18 10:49 Dose: 20 meq Senna (Senna Oral Solution -) 8.8 mg PO HS IKE Last Admin: 03/25/18 22:22 Dose: 8.8 mg - Objective Vital Signs: Vital Signs Temperature 98.3 F 03/26/18 09:20 Pulse Rate 86 03/26/18 09:20 Respiratory Rate 18 03/26/18 09:20 Blood Pressure 107/67 03/26/18 09:20 O2 Sat by Pulse Oximetry (%) 98 03/26/18 09:00 Constitutional: Yes: No Distress, Calm Cardiovascular: Yes: Regular Rate and Rhythm Respiratory: Yes: Regular Gastrointestinal: Yes: Normal Bowel Sounds, Soft, Tenderness (mild to deep palpation, no guarding) Neurological: Yes: Alert Labs: CBC, BMP 03/25/18 09:55 03/25/18 09:55 - ....Imaging Cat Scan: Report Reviewed Problem List - Problems (1) Appendicitis Code(s): K37 - UNSPECIFIED APPENDICITIS Qualifiers: Appendicitis type: acute appendicitis Acute appendicitis type: with localized peritonitis Appendicitis gangrene presence: without gangrene Appendicitis perforation presence: without perforation Appendicitis abscess presence: without abscess Qualified Code(s): K35.30 - Acute appendicitis with localized peritonitis, without perforation or gangrene (2) Ileus, postoperative Code(s): K91.89 - OTH POSTPROCEDURAL COMPLICATIONS AND DISORDERS OF DGSTV SYS; K56.7 - ILEUS, UNSPECIFIED (3) Right lower quadrant abdominal abscess Code(s): K65.1 - PERITONEAL ABSCESS Assessment/Plan Acute appendicitis/Peritonitis s/p appendectomy Multiple abdominal abscesses post-op ileus - Continue antibiotics - Additional fluid collections noted on repeat CT, consider drainage pt afebrile, without leukocytosis
[2018-03-26] MEDS: SENNOSIDES 8.8 MG/5 ML BULK BOTTLE PO SCH (21:29)
[2018-03-27] MEDS ORDERED: PIPERACILLIN/TAZOBACTAM 3.375 GM VIAL IVPB ONE ×3 (03:01→17:13)
[2018-03-27] MEDS ORDERED: DEXTROSE 5%-WATER - 50 ML IVPB ONE ×3 (03:01→17:13)
[2018-03-27] MEDS: PIPERACILLIN/TAZOB 3.375 GM 3.375 GM in DEXTROSE 5%-WATER - 50 ML IVPB SCH ×3 (03:23→18:01)
[2018-03-27] MEDS: POTASSIUM CHLORIDE TABS 20 MEQ TABLET.ER (FP) PO SCH ×2 (09:55→09:56)
--- NOTE | 2018-03-27 10:10 | PN ---
Progress Note (short form) - Note Progress Note: 47yo F s/p lap appy, seen and examined at bedside. Pt had CT abd/pel over the weekend which showed more and large intraabdominal collections. Pt complaining of increased RLQ tenderness. Afebrile. Denies n/v. Last Vital Signs Temp Pulse Resp BP Pulse Ox 98.0 F 76 18 96/54 L 96 03/27/18 05:59 03/27/18 05:59 03/27/18 05:59 03/27/18 05:59 03/26/18 21:00 CBC, BMP 03/25/18 09:55 03/25/18 09:55 PE: Gen: A&O x3 Resp: breathing comfortably Abd: mild RLQ tendnerss, nondistended, soft Problem List - Problems (1) Appendicitis Assessment/Plan: Plan -discuss with IR for possible drainage -npo for possible procedure -abx as per Medicine/ID Code(s): K37 - UNSPECIFIED APPENDICITIS Qualifiers: Appendicitis type: acute appendicitis Acute appendicitis type: with localized peritonitis Appendicitis gangrene presence: without gangrene Appendicitis perforation presence: without perforation Appendicitis abscess presence: without abscess Qualified Code(s): K35.30 - Acute appendicitis with localized peritonitis, without perforation or gangrene
[2018-03-27 10:41] LABS: HEMATOCRIT 31.1 % (32.4-45.2); MCH 30.8 pg (25.7-33.7); MCHC 35.5 g/dl (32.0-36.0); MEAN CELL VOLUME 86.7 fl (80-96); MEAN PLT VOLUME 7.8 fl (7.5-11.1); PLATELET COUNT 379 K/MM3 (134-434); RBC 3.58 M/mm3 (3.60-5.2); RDW 13.6 % (11.6-15.6)
[2018-03-27 10:55] LABS: INR 1.1 (0.83-1.09)
[2018-03-27 11:09] LABS: ALBUMIN 2.7 g/dl (3.4-5.0); ALK PHOS 91 U/L (45-117); ANION GAP 8 MMOL/L (8-16); BILIRUBIN,TOTAL 0.3 mg/dL (0.2-1); BLOOD UREA NITROGEN 10 mg/dL (7-18); CALCIUM 7.9 mg/dL (8.5-10.1); CHLORIDE 106 mmol/L (98-107); CO2 27 mmol/L (21-32); CREATININE 0.5 mg/dL (0.55-1.3); GLUCOSE,RANDOM 103 mg/dL (74-106); MAGNESIUM 1.9 mg/dL (1.8-2.4); PHOSPHOROUS 3.2 mg/dL (2.5-4.9); POTASSIUM 3.7 mmol/L (3.5-5.1); SGOT/AST 14 U/L (15-37); SGPT/ALT 21 U/L (13-61); SODIUM 141 mmol/L (136-145); TOT PROT 6.8 g/dl (6.4-8.2)
[2018-03-27 11:55] LABS: ERYTHROCYTE SEDIMENTATION RATE 66 mm/hr (0-20)
--- NOTE | 2018-03-27 13:12 | PN ---
Progress Note, Physician History of Present Illness: patient stable no new issues - Current Medication List Current Medications: Active Medications Acetaminophen (Tylenol -) 650 mg PO Q6H PRN PRN Reason: FEVER Last Admin: 03/24/18 02:10 Dose: 650 mg Docusate Sodium (Colace Liquid -) 100 mg PO DAILY PRN PRN Reason: CONSTIPATION Last Admin: 03/22/18 10:45 Dose: 100 mg Piperacillin Sod/Tazobactam (Sod 3.375 gm/ Dextrose) 50 mls @ 100 mls/hr IVPB Q8H-IV IKE; Protocol Last Admin: 03/27/18 09:55 Dose: 100 mls/hr Potassium Chloride (Potassium Chloride 10 Meq Premix Ivpb -) 10 meq in 100 mls @ 100 mls/hr IVPB Q60M IKE Stop: 03/27/18 14:29 Metoclopramide HCl (Reglan Injection -) 10 mg IVPUSH Q6H PRN PRN Reason: NAUSEA AND/OR VOMITING Last Admin: 03/23/18 12:54 Dose: 10 mg Potassium Chloride (K-Dur -) 20 meq PO DAILY IKE Last Admin: 03/27/18 09:56 Dose: Not Given Senna (Senna Oral Solution -) 8.8 mg PO HS IKE Last Admin: 03/26/18 21:29 Dose: 8.8 mg - Objective Vital Signs: Vital Signs Temperature 98.2 F 03/27/18 10:00 Pulse Rate 80 03/27/18 12:27 Respiratory Rate 23 H 03/27/18 12:27 Blood Pressure 123/71 03/27/18 12:27 O2 Sat by Pulse Oximetry (%) 100 03/27/18 12:27 Constitutional: Yes: No Distress, Calm Cardiovascular: Yes: Regular Rate and Rhythm Respiratory: Yes: Regular, CTA Bilaterally Gastrointestinal: Yes: Soft, Hypoactive Bowel Sounds Musculoskeletal: Yes: WNL Extremities: Yes: WNL Neurological: Yes: Alert, Oriented Psychiatric: Yes: Alert, Oriented Labs: CBC, BMP 03/27/18 10:05 03/27/18 10:05 INR, PTT INR 1.10 (0.83-1.09) H 03/27/18 10:05 - ....Imaging Cat Scan: Report Reviewed, Image Reviewed Assessment/Plan Patient is a 47 year old female with a significant past medical history of c- section, tummy tuck, cholecystectomy (around 8 years ago) presents with epigastric pain and is s/p laproscopic appendectomy for acute appendicitis on 01/2018. peritonitis abd pain ac appendicitis post op abd abscess repeat ct scan multiple abscess plan continue abx needs drainage await for the drainage plan est as per the team
[2018-03-27] MEDS: KCL 10 MEQ IVPB 10 MEQ/100 ML INFUS.BAG IVPB SCH ×2 (13:42→15:43)
[2018-03-27] MEDS: ACETAMINOPHEN 325 MG TABLET (FP) PO PRN (16:23)
--- NOTE | 2018-03-27 16:40 | PN ---
Progress Note, Physician Chief Complaint: 24HR events: -pt with persistent nausea and vomiting -CT abd/pelvis from 2days prior with worsening fluid collections in the right lower quadrant. Pt NPO for drainage today. - Current Medication List Current Medications: Active Medications Acetaminophen (Tylenol -) 650 mg PO Q6H PRN PRN Reason: FEVER Last Admin: 03/27/18 16:23 Dose: 650 mg Docusate Sodium (Colace Liquid -) 100 mg PO DAILY PRN PRN Reason: CONSTIPATION Last Admin: 03/22/18 10:45 Dose: 100 mg Piperacillin Sod/Tazobactam (Sod 3.375 gm/ Dextrose) 50 mls @ 100 mls/hr IVPB Q8H-IV IKE; Protocol Last Admin: 03/27/18 09:55 Dose: 100 mls/hr Metoclopramide HCl (Reglan Injection -) 10 mg IVPUSH Q6H PRN PRN Reason: NAUSEA AND/OR VOMITING Last Admin: 03/23/18 12:54 Dose: 10 mg Potassium Chloride (K-Dur -) 20 meq PO DAILY IKE Last Admin: 03/27/18 09:56 Dose: Not Given Senna (Senna Oral Solution -) 8.8 mg PO HS IKE Last Admin: 03/26/18 21:29 Dose: 8.8 mg - Objective Vital Signs: Vital Signs Temperature 97.6 F 03/27/18 14:20 Pulse Rate 77 03/27/18 14:20 Respiratory Rate 18 03/27/18 14:20 Blood Pressure 99/64 03/27/18 14:20 O2 Sat by Pulse Oximetry (%) 97 03/27/18 13:40 Constitutional: Yes: Well Nourished, Anxious Eyes: Yes: Conjunctiva Clear HENT: Yes: Atraumatic, Normocephalic Neck: Yes: Supple, Trachea Midline Cardiovascular: Yes: Regular Rate and Rhythm Respiratory: Yes: Regular, CTA Bilaterally Gastrointestinal: Yes: Soft, Tenderness (RLQ +rebound) ...Rectal Exam: Yes: Deferred Extremities: Yes: WNL Edema: No Peripheral Pulses WNL: Yes Peripheral Pulses: Left Radial: 2+, Right Radial: 2+, Left Doralis Pedis: 2+, Right Dorsalis Pedis: 2+ Wound/Incision: Yes: Open to air Neurological: Yes: Alert, Oriented ...Motor Strength: WNL Psychiatric: Yes: Alert, Oriented Labs: CBC, BMP 03/27/18 10:05 03/27/18 10:05 INR, PTT INR 1.10 (0.83-1.09) H 03/27/18 10:05 Problem List - Problems (1) Right lower quadrant abdominal abscess Assessment/Plan: pt followed by surgical team, will have drainage today continue Zosyn trend WBC and temp curve Code(s): K65.1 - PERITONEAL ABSCESS (2) Post-op pain Code(s): G89.18 - OTHER ACUTE POSTPROCEDURAL PAIN (3) Appendicitis Assessment/Plan: resolved s/p appendectomy Code(s): K37 - UNSPECIFIED APPENDICITIS Qualifiers: Appendicitis type: acute appendicitis Acute appendicitis type: with localized peritonitis Appendicitis gangrene presence: without gangrene Appendicitis perforation presence: without perforation Appendicitis abscess presence: without abscess Qualified Code(s): K35.30 - Acute appendicitis with localized peritonitis, without perforation or gangrene Impression/Plan Impression/Plan: GI: senna and colace, reglan PRN nausea APAP PRN fever Visit type - Emergency Visit Emergency Visit: Yes ED Registration Date: 03/17/18 Care time: The patient presented to the Emergency Department on the above date and was hospitalized for further evaluation of their emergent condition. - New Patient This patient is new to me today: No - Critical Care Critical Care patient: No - Discharge Referral Referred to [facility] No
--- NOTE | 2018-03-27 21:08 | PN ---
Progress Note (short form) - Note Progress Note: clinically feeling better s/p IR drainage of fluid collection Exam benign Advance diet
[2018-03-27] MEDS: SENNOSIDES 8.8 MG/5 ML BULK BOTTLE PO SCH (22:49)
[2018-03-28] MEDS ORDERED: PIPERACILLIN/TAZOBACTAM 3.375 GM VIAL IVPB ONE ×3 (00:55→17:23)
[2018-03-28] MEDS ORDERED: DEXTROSE 5%-WATER - 50 ML IVPB ONE ×3 (00:56→17:23)
[2018-03-28] MEDS: PIPERACILLIN/TAZOB 3.375 GM 3.375 GM in DEXTROSE 5%-WATER - 50 ML IVPB SCH ×3 (01:14→17:32)
--- NOTE | 2018-03-28 09:28 | PN ---
Progress Note (short form) - Note Progress Note: POD 11, s/p lap appy, c/b postoperative ileus, now resolved, POD 1, s/p IR drainage of collection Pt seen and examined. Tearful this morning, states she is hungry and wants to eat a regular diet. Reports she ate chicken soup brought by her family last night, without issue. Passing flatus, no BM x 2 days. Has been oob without issue , voiding. Denies n/v, abdominal pain. Denies cp/sob, le pain/edema. Vital Signs Temp 98.2 F 03/28/18 06:37 Pulse 68 03/28/18 06:37 Resp 18 03/28/18 06:37 BP 102/55 L 03/28/18 06:37 Pulse Ox 97 03/27/18 21:00 Intake & Output 03/27/18 03/27/18 03/28/18 11:59 23:59 11:59 Intake Total 50 550 200 Output Total 30 Balance 50 550 170 Intake: IVPB 50 300 Oral 250 200 Output: Drainage 30 Left Buttocks 30 Other: Voiding Method Toilet Toilet # Unmeasured Voids Void 2 1 CBC, BMP 03/27/18 10:05 03/27/18 10:05 PE: Gen: A&O x3 Resp: breathing comfortably, cta b/l anteriorly Abd: Incisions c/d/i, no erythema or drainage. Abdo soft, nondistended, nontender, hypoactive bowel sounds. ARUNA in place with minimal serous output ARUNA output 30ml overnight. Ext; soft, nt, no edema A/P: 47 y/o female with PMHx , tummy tuck, cholecystectomy (around 8 years ago) admitted 03/17 with acute abdominal pain, found to have acute appendicitis, now POD 7, s/p laparoscopic appendectomy, c/b post op ileus. Afebrile, VSS. -Regular diet -Keep ARUNA in place, monitor I&Os -F/U culture (preliminary negative) -Pain regimen with Toradol 30mg q6hrs prn, Acetaminophen 650mg q6hrs prn -Incentive spirometry -Continue IV ABX -Monitor VS above d/w attending Dr Morley
[2018-03-28] MEDS: POTASSIUM CHLORIDE TABS 20 MEQ TABLET.ER (FP) PO SCH (10:59)
--- NOTE | 2018-03-28 11:22 | PN ---
Physical Exam: SUBJECTIVE: Patient seen and examined at the bedside. feels better, no nausea or vomiting, no further abdominal pain. wants to eat. OBJECTIVE: Vital Signs Period Temp Pulse Resp BP Sys/Galvan Pulse Ox Last 24 Hr 97.6 F-98.4 F 68-85 18-23 94-123/54-74 97-100 GENERAL: The patient is awake, alert, and fully oriented, in no acute distress. HEAD: Normal with no signs of trauma. EYES: PERRL, extraocular movements intact, sclera anicteric, conjunctiva clear. No ptosis. ENT: Ears normal, nares patent, oropharynx clear without exudates, moist mucous membranes. NECK: Trachea midline, full range of motion, supple. HEART: Regular rate and rhythm, S1, S2 without murmur, rub or gallop. ABDOMEN: Soft, nontender, nondistended, normoactive bowel sounds EXTREMITIES: no edema. NEUROLOGICAL: Normal speech, gait not observed. PSYCH: Normal mood, normal affect. SKIN: Warm, dry, normal turgor, no rashes or lesions noted Laboratory Results - last 24 hr 03/27/18 10:05 ESR 66 H Active Medications Generic Name Dose Route Start Last Admin Trade Name Freq PRN Reason Stop Dose Admin Acetaminophen 650 mg 03/19/18 21:22 03/27/18 16:23 Tylenol - PO 650 mg Q6H PRN Administration FEVER Docusate Sodium 100 mg 03/21/18 09:44 03/22/18 10:45 Colace Liquid - PO 100 mg DAILY PRN Administration CONSTIPATION Piperacillin Sod/Tazobactam 50 mls @ 100 mls/hr 03/20/18 18:00 03/28/18 10:59 Sod 3.375 gm/ Dextrose IVPB 100 mls/hr Q8H-IV IKE Administration Protocol Metoclopramide HCl 10 mg 03/21/18 10:05 03/23/18 12:54 Reglan Injection - IVPUSH 10 mg Q6H PRN Administration NAUSEA AND/OR VOMITING Potassium Chloride 20 meq 03/22/18 10:15 03/28/18 10:59 K-Dur - PO 20 meq DAILY IKE Administration Senna 8.8 mg 03/22/18 03:55 03/27/18 22:49 Senna Oral Solution - PO 8.8 mg HS IKE Administration ASSESSMENT/PLAN: Patient is a 47 year old female with a significant past medical history of c- section, tummy tuck, cholecystectomy (around 8 years ago) presents with epigastric pain and is s/p laproscopic appendectomy for acute appendicitis on 01/2018. Patient hospitalization complicated when she developed fevers, tachycardia and was found to have a fluid collection/abscess as well as post op ileus on CT imaging. Surgery: Appendectomy POD #11 s/p postoperative ileus, now resolved developed abscess, sebas bulb drainage with sero sang drainage. monitor intake and output. On zosyn per ID drain care and diet advancement per surgery monitor labs, vitals Electrolytes: Mag wnl K within in normal limits. on k supplements fen regular diet monitor electrolytes in a.m. prophy SCDs Protonix iv full code Visit type - Emergency Visit Emergency Visit: Yes ED Registration Date: 03/17/18 Care time: The patient presented to the Emergency Department on the above date and was hospitalized for further evaluation of their emergent condition. - New Patient This patient is new to me today: No - Critical Care Critical Care patient: No - Discharge Referral Referred to [facility] No
--- NOTE | 2018-03-28 12:05 | PN ---
Progress Note, Physician History of Present Illness: patient stable no new issues abscess drained sebas drain in place - Current Medication List Current Medications: Active Medications Acetaminophen (Tylenol -) 650 mg PO Q6H PRN PRN Reason: FEVER Last Admin: 03/27/18 16:23 Dose: 650 mg Docusate Sodium (Colace Liquid -) 100 mg PO DAILY PRN PRN Reason: CONSTIPATION Last Admin: 03/22/18 10:45 Dose: 100 mg Piperacillin Sod/Tazobactam (Sod 3.375 gm/ Dextrose) 50 mls @ 100 mls/hr IVPB Q8H-IV IKE; Protocol Last Admin: 03/28/18 10:59 Dose: 100 mls/hr Metoclopramide HCl (Reglan Injection -) 10 mg IVPUSH Q6H PRN PRN Reason: NAUSEA AND/OR VOMITING Last Admin: 03/23/18 12:54 Dose: 10 mg Potassium Chloride (K-Dur -) 20 meq PO DAILY IKE Last Admin: 03/28/18 10:59 Dose: 20 meq Senna (Senna Oral Solution -) 8.8 mg PO HS IKE Last Admin: 03/27/18 22:49 Dose: 8.8 mg - Objective Vital Signs: Vital Signs Temperature 98.1 F 03/28/18 10:00 Pulse Rate 74 03/28/18 10:00 Respiratory Rate 18 03/28/18 10:00 Blood Pressure 94/54 L 03/28/18 10:00 O2 Sat by Pulse Oximetry (%) 99 03/28/18 09:00 Constitutional: Yes: No Distress, Calm Cardiovascular: Yes: Regular Rate and Rhythm Respiratory: Yes: Regular, CTA Bilaterally Gastrointestinal: Yes: Normal Bowel Sounds, Soft, Other ( sebas drain in place) Musculoskeletal: Yes: WNL Extremities: Yes: WNL Neurological: Yes: Alert, Oriented Psychiatric: Yes: Alert, Oriented Labs: CBC, BMP 03/27/18 10:05 03/27/18 10:05 INR, PTT INR 1.10 (0.83-1.09) H 03/27/18 10:05 Assessment/Plan Patient is a 47 year old female with a significant past medical history of c- section, tummy tuck, cholecystectomy (around 8 years ago) presents with epigastric pain and is s/p laproscopic appendectomy for acute appendicitis on 01/2018. peritonitis abd pain ac appendicitis post op abd abscess r plan continue abx will change to oral tomorrow rest as prt the team
[2018-03-28] MEDS: SENNOSIDES 8.8 MG/5 ML BULK BOTTLE PO SCH (22:45)
[2018-03-29] MEDS ORDERED: DEXTROSE 5%-WATER - 50 ML IVPB ONE ×2 (01:24→08:50)
[2018-03-29] MEDS ORDERED: PIPERACILLIN/TAZOBACTAM 3.375 GM VIAL IVPB ONE ×2 (01:24→08:50)
[2018-03-29] MEDS: PIPERACILLIN/TAZOB 3.375 GM 3.375 GM in DEXTROSE 5%-WATER - 50 ML IVPB SCH ×2 (01:56→09:12)
[2018-03-29] MEDS: POTASSIUM CHLORIDE TABS 20 MEQ TABLET.ER (FP) PO SCH (09:12)
--- NOTE | 2018-03-29 09:40 | PN ---
Progress Note (short form) - Note Progress Note: POD 12, s/p lap appy, c/b postoperative ileus, now resolved, POD 2, s/p IR drainage of collection Pt seen and examined. Doing well this morning. Tolerating PO, has been oob to restroom and ambulating halls. +BM x 2 yesterday. Asking about discharge and drain removal. Denies n/v, abdominal pain. Denies cp/sob, le pain/edema. Vital Signs Temp 98.4 F 03/29/18 09:15 Pulse 82 03/29/18 09:15 Resp 18 03/29/18 09:15 BP 96/55 L 03/29/18 09:15 Pulse Ox 98 03/28/18 21:00 Intake & Output 03/28/18 03/28/18 03/29/18 11:59 23:59 11:59 Intake Total 200 900 250 Output Total 30 20 Balance 170 880 250 Intake: IVPB 50 Oral 200 850 250 Output: Drainage 30 20 Left Buttocks 30 20 Other: Voiding Method Toilet Toilet # Unmeasured Voids Void 1 2 1 Bowel Movement Yes: 2 No CBC, BMP 03/27/18 10:05 03/27/18 10:05 PE: Gen: A&O x3 Resp: breathing comfortably, cta b/l anteriorly Abd: Incisions c/d/i, no erythema or drainage. Abdo soft, nondistended, nontender, hypoactive bowel sounds. ARUNA in place with minimal serous output ARUNA output <5ml overnight. Ext; soft, nt, no edema A/P: 47 y/o female with PMHx , tummy tuck, cholecystectomy (around 8 years ago) admitted 03/17 with acute abdominal pain, found to have acute appendicitis, now POD 12, s/p laparoscopic appendectomy, c/b post op ileus, intra-abdominal collection now POD 2, s/p IR drainage of collection Afebrile, VSS -Regular diet -Keep ARUNA in place, monitor I&Os -F/U culture (preliminary negative) -Continue abx per ID -Pain regimen with Toradol 30mg q6hrs prn, Acetaminophen 650mg q6hrs prn -Incentive spirometry -Continue IV ABX -Monitor VS -Will discuss plan for Aruna with attending this AM Possible d/c vs tuesday (ID to change to oral abx tomorrow) above d/w attending Dr Morley
--- NOTE | 2018-03-29 10:07 | PN ---
Progress Note, Physician History of Present Illness: patient stable no new issue - Current Medication List Current Medications: Active Medications Acetaminophen (Tylenol -) 650 mg PO Q6H PRN PRN Reason: FEVER Last Admin: 03/27/18 16:23 Dose: 650 mg Docusate Sodium (Colace Liquid -) 100 mg PO DAILY PRN PRN Reason: CONSTIPATION Last Admin: 03/22/18 10:45 Dose: 100 mg Piperacillin Sod/Tazobactam (Sod 3.375 gm/ Dextrose) 50 mls @ 100 mls/hr IVPB Q8H-IV IKE; Protocol Last Admin: 03/29/18 09:12 Dose: 100 mls/hr Metoclopramide HCl (Reglan Injection -) 10 mg IVPUSH Q6H PRN PRN Reason: NAUSEA AND/OR VOMITING Last Admin: 03/23/18 12:54 Dose: 10 mg Potassium Chloride (K-Dur -) 20 meq PO DAILY IKE Last Admin: 03/29/18 09:12 Dose: 20 meq Senna (Senna Oral Solution -) 8.8 mg PO HS IKE Last Admin: 03/28/18 22:45 Dose: Not Given - Objective Vital Signs: Vital Signs Temperature 98.4 F 03/29/18 09:15 Pulse Rate 82 03/29/18 09:15 Respiratory Rate 18 03/29/18 09:15 Blood Pressure 96/55 L 03/29/18 09:15 O2 Sat by Pulse Oximetry (%) 98 03/28/18 21:00 Constitutional: Yes: No Distress, Calm Cardiovascular: Yes: Regular Rate and Rhythm Respiratory: Yes: Regular, CTA Bilaterally Gastrointestinal: Yes: Normal Bowel Sounds, Soft, Other (drain in place) Musculoskeletal: Yes: WNL Extremities: Yes: WNL Neurological: Yes: Alert, Oriented Psychiatric: Yes: Alert, Oriented Labs: CBC, BMP 03/27/18 10:05 03/27/18 10:05 INR, PTT INR 1.10 (0.83-1.09) H 03/27/18 10:05 Assessment/Plan Patient is a 47 year old female with a significant past medical history of c- section, tummy tuck, cholecystectomy (around 8 years ago) presents with epigastric pain and is s/p laproscopic appendectomy for acute appendicitis on 01/2018. peritonitis abd pain ac appendicitis post op abd abscess r plan continue abx will change to oral rest as prt the team monitor drainage
[2018-03-29 11:53] LABS: BASO % 0.1 % (0-2.0); EOS % 2.4 % (0-4.5); HEMATOCRIT 31.4 % (32.4-45.2); LYMPH % 12.2 % (8-40); MCH 30.5 pg (25.7-33.7); MEAN CELL VOLUME 87.1 fl (80-96); MEAN PLT VOLUME 7.9 fl (7.5-11.1); MONO % 3.2 % (3.8-10.2); NEUT % 82.1 % (42.8-82.8); PLATELET COUNT 379 K/MM3 (134-434); RDW 13.7 % (11.6-15.6); WHITE BLOOD COUNT 7.9 K/mm3 (4.0-10.0)
[2018-03-29 13:02] LABS: ALBUMIN 2.8 g/dl (3.4-5.0); ALK PHOS 96 U/L (45-117); ANION GAP 9 MMOL/L (8-16); BILIRUBIN,TOTAL 0.5 mg/dL (0.2-1); BLOOD UREA NITROGEN 11 mg/dL (7-18); CALCIUM 8.6 mg/dL (8.5-10.1); CHLORIDE 104 mmol/L (98-107); CO2 25 mmol/L (21-32); CREATININE 0.5 mg/dL (0.55-1.3); GLUCOSE,RANDOM 110 mg/dL (74-106); MAGNESIUM 1.9 mg/dL (1.8-2.4); POTASSIUM 3.6 mmol/L (3.5-5.1); SGOT/AST 11 U/L (15-37); SGPT/ALT 21 U/L (13-61); SODIUM 137 mmol/L (136-145); TOT PROT 6.9 g/dl (6.4-8.2)
[2018-03-29] MEDS: AMOX TR/POT CLAV 875MG/125MG TABLETS (FP) PO SCH (17:34)
--- NOTE | 2018-03-29 18:49 | PN ---
Physical Exam: SUBJECTIVE: Patient seen and examined. feels well, no abdominal pain or nausea. OBJECTIVE: drain removal per surgery. pt for fistulogram tomorrow Vital Signs Period Temp Pulse Resp BP Sys/Galvan Pulse Ox Last 24 Hr 97.9 F-98.4 F 76-86 18-18 96-110/53-63 98 GENERAL: The patient is awake, alert, and fully oriented, in no acute distress. HEAD: Normal with no signs of trauma. EYES: PERRL, extraocular movements intact, sclera anicteric, conjunctiva clear. No ptosis. ENT: Ears normal, nares patent, oropharynx clear without exudates, moist mucous membranes. NECK: Trachea midline, full range of motion, supple. HEART: Regular rate and rhythm, S1, S2 without murmur, rub or gallop. ABDOMEN: Soft, nontender, nondistended, normoactive bowel sounds EXTREMITIES: no edema. NEUROLOGICAL: Normal speech, gait not observed. PSYCH: Normal mood, normal affect. SKIN: Warm, dry, normal turgor, no rashes or lesions noted Laboratory Results - last 24 hr 03/29/18 03/29/18 11:05 11:05 WBC 7.9 RBC 3.60 Hgb 11.0 Hct 31.4 L MCV 87.1 MCH 30.5 MCHC 35.0 RDW 13.7 Plt Count 379 MPV 7.9 Absolute Neuts (auto) 6.5 Neutrophils % 82.1 Lymphocytes % 12.2 Monocytes % 3.2 L Eosinophils % 2.4 Basophils % 0.1 Nucleated RBC % 0 Sodium 137 Potassium 3.6 Chloride 104 Carbon Dioxide 25 Anion Gap 9 BUN 11 Creatinine 0.5 L Creat Clearance w eGFR > 60 Random Glucose 110 H Calcium 8.6 Magnesium 1.9 Total Bilirubin 0.5 AST 11 L ALT 21 Alkaline Phosphatase 96 Total Protein 6.9 Albumin 2.8 L Active Medications Generic Name Dose Route Start Last Admin Trade Name Freq PRN Reason Stop Dose Admin Acetaminophen 650 mg 03/19/18 21:22 03/27/18 16:23 Tylenol - PO 650 mg Q6H PRN Administration FEVER Amoxicillin/Clavulanate Potassium 1 tab 03/29/18 17:30 03/29/18 17:34 Augmentin - 875mg Tablet PO 1 tab BID@0800,1730 IKE Administration Docusate Sodium 100 mg 03/21/18 09:44 03/22/18 10:45 Colace Liquid - PO 100 mg DAILY PRN Administration CONSTIPATION Metoclopramide HCl 10 mg 03/21/18 10:05 03/23/18 12:54 Reglan Injection - IVPUSH 10 mg Q6H PRN Administration NAUSEA AND/OR VOMITING Potassium Chloride 20 meq 03/22/18 10:15 03/29/18 09:12 K-Dur - PO 20 meq DAILY IKE Administration Senna 8.8 mg 03/22/18 03:55 03/28/18 22:45 Senna Oral Solution - PO Not Given HS IKE ASSESSMENT/PLAN: Patient is a 47 year old female with a significant past medical history of c- section, tummy tuck, cholecystectomy (around 8 years ago) presents with epigastric pain and is s/p laproscopic appendectomy for acute appendicitis on 01/2018. Patient hospitalization complicated when she developed fevers, tachycardia and was found to have a fluid collection/abscess as well as post op ileus on CT imaging. Surgery: Appendectomy POD #12 s/p postoperative ileus, now resolved and tolerating diet. developed abscess, sebas bulb drainage with sero sang drainage. monitor intake and output. drain removal per surgery patient for fistulogram tomorrow On Augmentin/amox 875mg per ID drain care and diet advancement per surgery monitor labs, vitals pain managed Electrolytes: Mag wnl K within in normal limits. on k supplements fen regular diet monitor electrolytes in a.m. prophy SCDs Protonix iv full code Visit type - Emergency Visit Emergency Visit: Yes ED Registration Date: 03/17/18 Care time: The patient presented to the Emergency Department on the above date and was hospitalized for further evaluation of their emergent condition. - New Patient This patient is new to me today: No - Critical Care Critical Care patient: No - Discharge Referral Referred to [facility] Med P.C.: No
[2018-03-29] MEDS ORDERED: PT OWN MED DRAWER 7, Y5N ONE (21:15)
[2018-03-29] MEDS: SENNOSIDES 8.8 MG/5 ML BULK BOTTLE PO SCH (21:24)
--- NOTE | 2018-03-30 09:13 | PN ---
Progress Note (short form) - Note Progress Note: POD 13, s/p lap appy, c/b postoperative ileus, now resolved, POD 3, s/p IR drainage of collection Pt seen and examined. Doing well this morning. Tolerating PO, has been oob to restroom and ambulating halls. +BM x 2 yesterday. Denies n/v, abdominal pain. Denies cp/sob, le pain/edema. Vital Signs Temp 98.4 F 03/30/18 06:00 Pulse 75 03/30/18 06:00 Resp 18 03/30/18 06:00 BP 107/60 03/30/18 06:00 Pulse Ox 97 03/29/18 21:00 Intake & Output 03/29/18 03/29/18 03/30/18 11:59 23:59 11:59 Intake Total 250 0 Output Total 5 Balance 250 -5 0 Intake: Oral 250 0 Output: Drainage 5 Left Buttocks 5 Other: Voiding Method Toilet Toilet # Unmeasured Voids Void 1 1 1 Bowel Movement No Yes: 1 No CBC, BMP 03/29/18 11:05 03/29/18 11:05 PE: Gen: A&O x3 Resp: breathing comfortably, cta b/l anteriorly Abd: Incisions c/d/i, no erythema or drainage. Abdo soft, nondistended, nontender, hypoactive bowel sounds. ARUNA in place with minimal serous output ARUNA output <5ml overnight. Ext; soft, nt, no edema A/P: 47 y/o female with PMHx , tummy tuck, cholecystectomy (around 8 years ago) admitted 03/17 with acute abdominal pain, found to have acute appendicitis, now POD 13, s/p laparoscopic appendectomy, c/b post op ileus, intra-abdominal collection now POD 3, s/p IR drainage of collection Afebrile, VSS -Plan for IR this AM for drain study/fistulogram/possible drain removal -Per ID to be initiated on PO abx today -Possible d/c later today vs tomorrow -Pt should f/u with Dr Gamez in the office in 7-10 days after d/c
[2018-03-30 10:28] LABS: BASO % 0.3 % (0-2.0); EOS % 1.8 % (0-4.5); HEMATOCRIT 32.2 % (32.4-45.2); HEMOGLOBIN 11.1 GM/dL (10.7-15.3); LYMPH % 13.9 % (8-40); MCH 30.1 pg (25.7-33.7); MCHC 34.6 g/dl (32.0-36.0); MEAN CELL VOLUME 87.1 fl (80-96); MEAN PLT VOLUME 8.2 fl (7.5-11.1); PLATELET COUNT 400 K/MM3 (134-434); RDW 13.2 % (11.6-15.6); WHITE BLOOD COUNT 8.3 K/mm3 (4.0-10.0)
[2018-03-30] MEDS: AMOX TR/POT CLAV 875MG/125MG TABLETS (FP) PO SCH ×2 (10:31→17:13)
[2018-03-30] MEDS: POTASSIUM CHLORIDE TABS 20 MEQ TABLET.ER (FP) PO SCH (10:31)
[2018-03-30 11:01] LABS: ALBUMIN 2.8 g/dl (3.4-5.0); ALK PHOS 94 U/L (45-117); ANION GAP 10 MMOL/L (8-16); BILIRUBIN,TOTAL 0.4 mg/dL (0.2-1); BLOOD UREA NITROGEN 13 mg/dL (7-18); CALCIUM 8.4 mg/dL (8.5-10.1); CHLORIDE 105 mmol/L (98-107); CO2 24 mmol/L (21-32); CREATININE 0.5 mg/dL (0.55-1.3); GLUCOSE,RANDOM 90 mg/dL (74-106); POTASSIUM 3.8 mmol/L (3.5-5.1); SGOT/AST 9 U/L (15-37); SGPT/ALT 20 U/L (13-61); SODIUM 138 mmol/L (136-145)
[2018-03-30] MEDS ORDERED: LACTOBACILLUS ACIDOPHILUS 1 TABLET PO SCH (11:15)
--- NOTE | 2018-03-30 13:52 | PN ---
Progress Note, Physician History of Present Illness: stable no new issues - Current Medication List Current Medications: Active Medications Acetaminophen (Tylenol -) 650 mg PO Q6H PRN PRN Reason: FEVER Last Admin: 03/27/18 16:23 Dose: 650 mg Amoxicillin/Clavulanate Potassium (Augmentin - 875mg Tablet) 1 tab PO BID@0800, 1730 [facility] Last Admin: 03/30/18 10:31 Dose: 1 tab Docusate Sodium (Colace Liquid -) 100 mg PO DAILY PRN PRN Reason: CONSTIPATION Last Admin: 03/22/18 10:45 Dose: 100 mg Lactobacillus Acidophilus (Bacid -) 1 tab PO DAILY [facility] Last Admin: 03/30/18 11:44 Dose: 1 tab Metoclopramide HCl (Reglan Injection -) 10 mg IVPUSH Q6H PRN PRN Reason: NAUSEA AND/OR VOMITING Last Admin: 03/23/18 12:54 Dose: 10 mg Potassium Chloride (K-Dur -) 20 meq PO DAILY [facility] Last Admin: 03/30/18 10:31 Dose: 20 meq Senna (Senna Oral Solution -) 8.8 mg PO HS [facility] Last Admin: 03/29/18 21:24 Dose: Not Given - Objective Vital Signs: Vital Signs Temperature 98.3 F 03/30/18 10:00 Pulse Rate 75 03/30/18 06:00 Respiratory Rate 18 03/30/18 10:00 Blood Pressure 99/55 L 03/30/18 10:00 O2 Sat by Pulse Oximetry (%) 97 03/30/18 09:00 Constitutional: Yes: No Distress, Calm Cardiovascular: Yes: Regular Rate and Rhythm Respiratory: Yes: Regular, CTA Bilaterally Gastrointestinal: Yes: Normal Bowel Sounds, Soft Musculoskeletal: Yes: WNL Extremities: Yes: WNL Neurological: Yes: Alert, Oriented Labs: CBC, BMP 03/30/18 09:20 03/30/18 09:20 INR, PTT INR 1.10 (0.83-1.09) H 03/27/18 10:05 Assessment/Plan Patient is a 47 year old female with a significant past medical history of c- section, tummy tuck, cholecystectomy (around 8 years ago) presents with epigastric pain and is s/p laproscopic appendectomy for acute appendicitis on 01/2018. peritonitis abd pain ac appendicitis post op abd abscess r plan oral augmentin for 10 more days close watch monitor for fevers rest as per the team
--- NOTE | 2018-03-30 14:33 | DS ---
Physical Exam: SUBJECTIVE: Patient seen and examined OBJECTIVE: BM x 2 yesterday. denies abdominal pain, no nausea or vomiting. Vital Signs Period Temp Pulse Resp BP Sys/Galvan Pulse Ox Last 24 Hr 98.1 F-98.5 F 75-83 18-20 97-107/53-63 97-97 PHYSICAL EXAM GENERAL: The patient is awake, alert, and fully oriented, in no acute distress. HEAD: Normal with no signs of trauma. EYES: PERRL, extraocular movements intact, sclera anicteric, conjunctiva clear. ENT: Ears normal, nares patent, oropharynx clear without exudates, moist mucous membranes. NECK: Trachea midline, full range of motion, supple. LUNGS: Breath sounds equal, clear to auscultation bilaterally, no wheezes, no crackles, no accessory muscle use. HEART: Regular rate and rhythm, S1, S2 without murmur, rub or gallop. ABDOMEN: Soft, nontender, nondistended, normoactive bowel sounds, no guarding, no rebound, no hepatosplenomegaly, no masses. EXTREMITIES: 2+ pulses, warm, well-perfused, no edema. NEUROLOGICAL: Cranial nerves II through XII grossly intact. Normal speech, gait not observed. PSYCH: Normal mood, normal affect. SKIN: Warm, dry, normal turgor, no rashes or lesions noted. LABS Laboratory Results - last 24 hr 03/30/18 03/30/18 09:20 09:20 WBC 8.3 RBC 3.70 Hgb 11.1 Hct 32.2 L MCV 87.1 MCH 30.1 MCHC 34.6 RDW 13.2 Plt Count 400 MPV 8.2 Absolute Neuts (auto) 6.6 Neutrophils % 79.0 Lymphocytes % 13.9 Monocytes % 5.0 Eosinophils % 1.8 Basophils % 0.3 Nucleated RBC % 0 Sodium 138 Potassium 3.8 Chloride 105 Carbon Dioxide 24 Anion Gap 10 BUN 13 Creatinine 0.5 L Creat Clearance w eGFR > 60 Random Glucose 90 Calcium 8.4 L Total Bilirubin 0.4 AST 9 L ALT 20 Alkaline Phosphatase 94 Total Protein 7.0 Albumin 2.8 L HOSPITAL COURSE: Date of Admission:03/17/18 Date of Discharge: 03/30/18 Patient is a 47 year old female with a significant past medical history of c- section, tummy tuck, cholecystectomy (around 8 years ago) presents with epigastric pain and is s/p laproscopic appendectomy for acute appendicitis on 01/2018. Patient hospitalization complicated when she developed fevers, tachycardia and was found to have a fluid collection/abscess as well as post op ileus on CT imaging. Surgery: Appendectomy POD #13 s/p postoperative ileus, now resolved and tolerating diet. Intra-abdominal collection now POD #3, s/p IR drainage of collection. drainage collection removed today. On Augmentin/amox 875mg BID per ID to continue for 10 more days outpatient follow up with surgery within 7-10 days Electrolytes: Mag wnl K wnl. repeat labs outpatient full code. discharge home. Minutes to complete discharge: 60 Discharge Summary Reason For Visit: APPENDICITIS Current Active Problems Appendicitis (Acute) Electrolyte disturbance (Acute) Ileus, postoperative (Acute) Post-op pain (Acute) Right lower quadrant abdominal abscess (Acute) Condition: Improved - Instructions Diet, Activity, Other Instructions: Mrs Garcia: You were treated for an abscess after your surgical procedure with IV antibiotics. Here are our recommendations: Please continue the Augmentin 875mg antibiotics twice per day at 8am and 5pm for 10 more days. Please take this with a probiotic (Bacid) to prevent you from developing stomach upset or diarrhea. Please see Dr. Morley within 7-10 days for a post operative follow up. Please call his office for an appointment. If you develop nausea/vomiting, fevers or rapid heart rate, please return to the ED. Please call me with any questions that you may have Wendi Clark [employer] [facility] @ [facility] [phone] Referrals: Jamie Beaulieu MD [Primary Care Provider] - Genaro Gamez [Staff Physician] - Disposition: HOME - Home Medications Comprehensive Discharge Medication List: Ambulatory Orders Amox-Tr/K Cl [Augmentin 875-125mg Tablet -] 1 tab PO BID@0800,1730 #20 tablet Lactobacillus Acidophilus [Bacid -] 1 tab PO DAILY #20 tab 03/30/18 This patient is new to me today: Yes Date on this admission: 03/30/18 Emergency Visit: No Critical Care patient: No - Discharge Referral Referred to [facility] Med P.C.: No
[2018-03-30 18:02] VITALS: BP 103/51; PULSE 92; TEMP 97.9
== END 2018-03-30 18:34 | disposition home or self-care (01) | DRG 341 ==
LOC: JER 05:16 → SUATTDRO 16:01 → JASUSAT 16:01 → JERBED 16:02 → J7W 20:20 → UNDOADMIN 03-20 13:03 → JASUSAT 03-20 13:03 → JERBED 03-21 20:29 → J7W 03-21 20:29 → JERBED 03-21 20:30 → J7W 03-21 20:30
PROVIDERS: ADMIT Internal Medicine; ATTEND Nurse Practitioner Family
PROC: 0DTJ4ZZ Resection of Appendix, Percutaneous Endoscopic Approach (ICD-10-PCS; principal; 2018-03-17 17:00)
PROC: 0W9J30Z Drainage of Pelvic Cavity with Drainage Device, Percutaneous Approach (ICD-10-PCS; 2018-03-27)
DX: K35.30 Acute appendicitis with localized peritonitis, without perforation or gangrene (principal); K65.1 Peritoneal abscess; T81.43XA Infection following a procedure, organ and space surgical site, initial encounter; K91.30 Postprocedural intestinal obstruction, unspecified as to partial versus complete; E87.6 Hypokalemia; R00.0 Tachycardia, unspecified; R21 Rash and other nonspecific skin eruption; Y83.8 Other surgical procedures as the cause of abnormal reaction of the patient, or of later complication, without mention of misadventure at the time of the procedure; E87.8 Other disorders of electrolyte and fluid balance, not elsewhere classified; D64.9 Anemia, unspecified
CPT/HCPCS: 36415; 49407; 71045-TC-FY; 71046-TC-FY; 71275-TC; 74018-TC-FY; 74019-TC-FY; 74177-TC; 76080-TC-FY; 76705-TC; 80048; 80053; 82150; 82310; 82330; 83605; 83690; 83735; 84100; 84132; 84311; 84443; 84484; 84703; 85025; 85027; 85610; 85651; 87040; 87070; 87075; 87205; 87899; 88304-TC; 93005; 93010; 93306-TC; 94760; 99283-25; C1729; C1769; J0131; J7030; Q9967

== ENCOUNTER 2018-04-06 15:17 | Inpatient (IN) | payer OTHER ==
--- NOTE | 2018-04-06 15:32 | PDOC ---
Rapid Medical Evaluation Chief Complaint: Pain, Acute Medical Evaluation: Allergies Allergy/AdvReac Type Severity Reaction Status Date / Time No Known Allergies Allergy Verified 03/17/18 05:30 04/06/18 15:27 I have performed a brief in-person evaluation of this patient. The patient presents with a chief complaint of: RUQ pain Pertinent physical exam findings: tense tight abd and exquisite pain, I have ordered the following: CBC, CMP, Amylase/ BC x 2, UA, UcG , Flat and Upright abd, The patient will proceed to the ED for further evaluation. taken to main ER 04/06/18 15:30 Discharge Disposition - Diagnosis Abdominal pain Qualifiers: Abdominal location: generalized Qualified Code(s): R10.84 - Generalized abdominal pain - Discharge Dispostion Condition at time of disposition: Stable - Referrals - Patient Instructions - Post Discharge Activity
[2018-04-06 16:09] LABS: BASO % 0.4 % (0-2.0); EOS % 1.9 % (0-4.5); HEMATOCRIT 34.4 % (32.4-45.2); HEMOGLOBIN 12.2 GM/dL (10.7-15.3); LYMPH % 18.7 % (8-40); MCH 30.8 pg (25.7-33.7); MCHC 35.5 g/dl (32.0-36.0); MEAN CELL VOLUME 86.9 fl (80-96); MONO % 6.3 % (3.8-10.2); NEUT % 72.7 % (42.8-82.8); PLATELET COUNT 322 K/MM3 (134-434); RBC 3.95 M/mm3 (3.60-5.2); RDW 13.7 % (11.6-15.6); WHITE BLOOD COUNT 7.6 K/mm3 (4.0-10.0)
--- NOTE | 2018-04-06 16:16 | PDOC ---
History of Present Illness - General Chief Complaint: Pain, Acute Stated Complaint: RIGHT ABD PAIN Time Seen by Provider: 04/06/18 16:15 - History of Present Illness Initial Comments: 04/06/18 16:15 Ms. Garcia is a 47 yo female w/ pmh of recent appendectomy 03/17 (discharged following abscess treated with IV antibiotics, sent home on Augementin 875mg BID for 10 days), who presents for evaluation of 1 week of RLQ abdominal pain. Patient reports pain has gotten precipitously worse today, prompting her visit. Ms. Garcia denies any other symptoms. The patient denies chest pain, shortness of breath, headache and dizziness. Denies fever, chills, nausea, vomit, diarrhea and constipation. Denies dysuria, frequency, urgency and hematuria. Past History - Past Medical History Allergies/Adverse Reactions: Allergies Allergy/AdvReac Type Severity Reaction Status Date / Time No Known Allergies Allergy Verified 04/06/18 15:37 Home Medications: Ambulatory Orders Amox-Tr/K Cl [Augmentin - 875Mg Tablet] 1 tab PO BID 04/06/18 COPD: No - Surgical History Abdominal Surgery: Yes Appendectomy: Yes Cholecystectomy: Yes GI Surgery: Yes - Immunization History Td Vaccination: Yes TDAP Vaccination: Yes Immunization Up to Date: Yes - Suicide/Smoking/Psychosocial Hx Smoking History: Never smoked Have you smoked in the past 12 months: No Hx Alcohol Use: No Drug/Substance Use Hx: No Substance Use Type: None Hx Substance Use Treatment: No Review of Systems - Review of Systems Comments:: 04/06/18 16:15 GENERAL/CONSTITUTIONAL: No fever or chills. No weakness. HEAD, EYES, EARS, NOSE AND THROAT: No change in vision. No ear pain or discharge. No sore throat. CARDIOVASCULAR: No chest pain or shortness of breath RESPIRATORY: No cough, wheezing, or hemoptysis. GASTROINTESTINAL: +Right lower quadrant abdominal pain as described. No nausea, vomiting, diarrhea or constipation. GENITOURINARY: No dysuria, frequency, or change in urination. MUSCULOSKELETAL: No joint or muscle swelling or pain. No neck or back pain. SKIN: No rash NEUROLOGIC: No headache, vertigo, loss of consciousness, or change in strength/ sensation. ENDOCRINE: No increased thirst. No abnormal weight change HEMATOLOGIC/LYMPHATIC: No anemia, easy bleeding, or history of blood clots. ALLERGIC/IMMUNOLOGIC: No hives or skin allergy. *Physical Exam - Vital Signs Last Vital Signs Temp Pulse Resp BP Pulse Ox 98.2 F 80 18 107/77 100 04/06/18 15:35 04/06/18 15:35 04/06/18 15:35 04/06/18 15:35 04/06/18 15:35 - Physical Exam Comments: 04/06/18 16:15 GENERAL: Awake, alert, and fully oriented, in no acute distress HEAD: No signs of trauma, normocephalic, atraumatic EYES: PERRLA, EOMI, sclera anicteric, conjunctiva clear ENT: Auricles normal inspection, hearing grossly normal, nares patent, oropharynx clear without exudates. Moist mucosa NECK: Normal ROM, supple, no lymphadenopathy, JVD, or masses LUNGS: No distress, speaks full sentences, clear to auscultation bilaterally HEART: Regular rate and rhythm, normal S1 and S2, no murmurs, rubs or gallops, peripheral pulses normal and equal bilaterally. ABDOMEN: +RLQ pain. Soft, normoactive bowel sounds. No guarding, no rebound. No masses EXTREMITIES: Normal inspection, Normal range of motion, no edema. No clubbing or cyanosis. NEUROLOGICAL: Cranial nerves II through XII grossly intact. Normal speech, normal gait, no focal sensorimotor deficits SKIN: Warm, Dry, normal turgor, no rashes or lesions noted. Moderate Sedation - Procedure Monitoring Vital Signs: Procedure Monitoring Vital Signs Temperature 98.2 F 04/06/18 15:35 Pulse Rate 80 04/06/18 15:35 Respiratory Rate 18 04/06/18 15:35 Blood Pressure 107/77 04/06/18 15:35 O2 Sat by Pulse Oximetry (%) 100 04/06/18 15:35 ED Treatment Course - LABORATORY CBC & Chemistry Diagram: 04/06/18 15:38 04/06/18 15:38 - ADDITIONAL ORDERS Additional order review: 04/06/18 15:38 RBC 3.95 MCV 86.9 MCHC 35.5 RDW 13.7 MPV 8.0 Neutrophils % 72.7 Lymphocytes % 18.7 D Monocytes % 6.3 Eosinophils % 1.9 Basophils % 0.4 Medical Decision Making - Medical Decision Making 04/06/18 18:56 Ms. Garcia is a 47 yo female w/ pmh as described who presents for evaluation of worsening RLQ abdominal pain in the setting of recent appendectomy with subsequent abscess. Patient evaluated with labs as below and CT abdomen/pelvis pending for r/o post-op complication. Patient signed out to Dr. Day for further evaluation. Laboratory Results - last 24 hr 04/06/18 04/06/18 04/06/18 15:38 15:38 15:38 WBC 7.6 RBC 3.95 Hgb 12.2 Hct 34.4 MCV 86.9 MCH 30.8 MCHC 35.5 RDW 13.7 Plt Count 322 MPV 8.0 Absolute Neuts (auto) 5.5 Neutrophils % 72.7 Lymphocytes % 18.7 D Monocytes % 6.3 Eosinophils % 1.9 Basophils % 0.4 Nucleated RBC % 0 PT with INR 13.90 H INR 1.18 H Sodium 138 Potassium 3.3 L Chloride 104 Carbon Dioxide 28 Anion Gap 6 L BUN 9 Creatinine 0.5 L Creat Clearance w eGFR > 60 Random Glucose 104 Lactic Acid Calcium 8.8 Total Bilirubin 0.4 AST 15 ALT 25 Alkaline Phosphatase 120 H Total Protein 8.3 H Albumin 3.3 L Lipase 142 Urine Color Urine Appearance Urine pH Ur Specific [place] Urine Protein Urine Glucose (UA) Urine Ketones Urine Blood Urine Nitrite Urine Bilirubin Urine Urobilinogen Ur Leukocyte Esterase Urine WBC (Auto) Urine RBC (Auto) Ur Epithelial Cells Urine Mucus Urine HCG, Qual Blood Type Antibody Screen 04/06/18 04/06/18 04/06/18 16:13 16:13 17:20 WBC RBC Hgb Hct MCV MCH MCHC RDW Plt Count MPV Absolute Neuts (auto) Neutrophils % Lymphocytes % Monocytes % Eosinophils % Basophils % Nucleated RBC % PT with INR INR Sodium Potassium Chloride Carbon Dioxide Anion Gap BUN Creatinine Creat Clearance w eGFR Random Glucose Lactic Acid 1.2 Calcium Total Bilirubin AST ALT Alkaline Phosphatase Total Protein Albumin Lipase Urine Color Yellow Urine Appearance Slcloudy Urine pH 6.0 Ur Specific [place] 1.024 Urine Protein Negative Urine Glucose (UA) Negative Urine Ketones Negative Urine Blood 1+ H Urine Nitrite Negative Urine Bilirubin Negative Urine Urobilinogen 2.0 H Ur Leukocyte Esterase 1+ H Urine WBC (Auto) 5 Urine RBC (Auto) 17 Ur Epithelial Cells Moderate Urine Mucus Moderate Urine HCG, Qual Blood Type O POSITIVE Antibody Screen Negative 04/06/18 17:20 WBC RBC Hgb Hct MCV MCH MCHC RDW Plt Count MPV Absolute Neuts (auto) Neutrophils % Lymphocytes % Monocytes % Eosinophils % Basophils % Nucleated RBC % PT with INR INR Sodium Potassium Chloride Carbon Dioxide Anion Gap BUN Creatinine Creat Clearance w eGFR Random Glucose Lactic Acid Calcium Total Bilirubin AST ALT Alkaline Phosphatase Total Protein Albumin Lipase Urine Color Urine Appearance Urine pH Ur Specific [place] Urine Protein Urine Glucose (UA) Urine Ketones Urine Blood Urine Nitrite Urine Bilirubin Urine Urobilinogen Ur Leukocyte Esterase Urine WBC (Auto) Urine RBC (Auto) Ur Epithelial Cells Urine Mucus Urine HCG, Qual Negative Blood Type Antibody Screen *DC/Admit/Observation/Transfer Diagnosis at time of Disposition: Abdominal pain Qualifiers: Abdominal location: generalized Qualified Code(s): R10.84 - Generalized abdominal pain - Discharge Dispostion Condition at time of disposition: Stable - Referrals - Patient Instructions - Post Discharge Activity
[2018-04-06 16:24] LABS: INR 1.18 (0.83-1.09); PROTHROMBIN TIME (PATIENT) 13.9 SEC (9.7-13.0)
[2018-04-06 16:35] LABS: ALBUMIN 3.3 g/dl (3.4-5.0); ALK PHOS 120 U/L (45-117); ANION GAP 6 MMOL/L (8-16); BILIRUBIN,TOTAL 0.4 mg/dL (0.2-1); BLOOD UREA NITROGEN 9 mg/dL (7-18); CALCIUM 8.8 mg/dL (8.5-10.1); CHLORIDE 104 mmol/L (98-107); CO2 28 mmol/L (21-32); CREATININE 0.5 mg/dL (0.55-1.3); GLUCOSE,RANDOM 104 mg/dL (74-106); LIPASE 142 U/L (73-393); POTASSIUM 3.3 mmol/L (3.5-5.1); SGOT/AST 15 U/L (15-37); SGPT/ALT 25 U/L (13-61); SODIUM 138 mmol/L (136-145); TOT PROT 8.3 g/dl (6.4-8.2)
[2018-04-06] MEDS ORDERED: ACETAMINOPHEN 1000 MG/100 ML VIAL (NON FORMULARY) IVPB ONE (16:49)
[2018-04-06] MEDS ORDERED: ACETAMINOPHEN INJECTION 100 ML IVPB ONE (16:52)
--- NOTE | 2018-04-06 17:14 | PDOC ---
Attending Attestation - HPI HPI: 04/06/18 17:53 The patient is a 47 year old female with a significant past medical history of an appendectomy on 03/17 (discharged 03/30 following abscess treated with IV antibiotics, sent home on Augementin 875mg BID for 10 days), who presents to the emergency department today complaining of RLQ pain which began yesterday. The patient states the pain increased from a constant dull pain which her surgeon said is to be expected to a constant 9/10 pain today. She reports occasional pain exacerbation with moving her bowels. The patient denies chest pain, shortness of breath, headache and dizziness. Denies fever, chills, nausea, vomit, diarrhea and constipation. Denies dysuria, frequency, urgency and hematuria. Allergies: NKA Past surgical history: Appendectomy (03/2018) Social history: No reported - Physicial Exam PE: 04/06/18 17:53 GENERAL: The patient is in no acute distress. HEAD: Normal with no signs of trauma. EYES: PERRLA, EOMI, sclera anicteric, conjunctiva clear. ENT: Ears normal, nares patent, oropharynx clear without exudates. Moist mucous membranes. NECK: Normal range of motion, supple without lymphadenopathy, JVD, or masses. LUNGS: Breath sounds equal, clear to auscultation bilaterally. No wheezes, and no crackles. HEART:Regular rate and rhythm, normal S1 and S2 without murmur, rub or gallop. ABDOMEN: (+) RLQ pain. Soft, nontender, normoactive bowel sounds. No guarding, no rebound. No masses palpable. EXTREMITIES: Normal range of motion, no edema. No clubbing or cyanosis. No erythema, or tenderness. NEUROLOGICAL: Cranial nerves II through XII grossly intact. Normal speech. No focal neurological deficits. MUSCULOSKELETAL: Back non-tender to palpation, no CVA tenderness SKIN: Warm, Dry, normal turgor, no rashes or lesions noted. - Medical Decision Making 04/06/18 20:[address] Gamez, awaiting call back. <Sudha Ga - Last Filed: 04/06/18 20:27> - Resident Resident Name: Adarsh Rascon - ED Attending Attestation I have performed the following: I have examined & evaluated the patient, The case was reviewed & discussed with the resident, I agree w/resident's findings & plan, Exceptions are as noted - Medical Decision Making 04/06/18 18:07 47 yo F presenting to the ER for evaluation of RLQ pain Pt s/p lap appendectomy for acute appendicitis on 03/17, complicated by fluid collection/abscess s/p drain, complicated by post op ileus Pt discharged on 03/30, discharged on Augmentin feeling mild pain PT states she began having more severe pain beginning yesterday No known fevers or chills Tolerating po No diarrhea Laboratory Tests 04/06/18 04/06/18 04/06/18 15:38 15:38 15:38 WBC 7.6 Hgb 12.2 Hct 34.4 Plt Count 322 INR 1.18 H BUN 9 Creatinine 0.5 L Lactic Acid Urine Blood Urine Nitrite Ur Leukocyte Esterase Urine WBC (Auto) Urine RBC (Auto) Ur Epithelial Cells Urine Mucus 04/06/18 04/06/18 16:13 17:20 WBC Hgb Hct Plt Count INR BUN Creatinine Lactic Acid 1.2 Urine Blood 1+ H Urine Nitrite Negative Ur Leukocyte Esterase 1+ H Urine WBC (Auto) 5 Urine RBC (Auto) 17 Ur Epithelial Cells Moderate Urine Mucus Moderate 04/06/18 18:08 04/06/18 18:18 Will do: CT to assess for abscess re accumulation Signed out to Dr Tijerina <Lissa Schmidt - Last Filed: 04/08/18 19:15> Attestations - Attestations 04/06/18 17:53 Documentation prepared by Sudha Ga, acting as medical accountant for Lissa Schmidt MD. <Sudha Ga - Last Filed: 04/06/18 20:27>
[2018-04-06 17:53] LABS: URINE APPEARANCE SLCLOUDY; URINE BILIRUBIN NEGATIVE (<2.0 mg/dL); URINE COLOR YELLOW; URINE GLUCOSE (UA) NEGATIVE (NEGATIVE); URINE KETONE NEGATIVE (NEGATIVE); URINE LEUK ESTERASE 1+ (NEGATIVE); URINE NITRITE NEGATIVE (NEGATIVE); URINE PROTEIN NEGATIVE (NEGATIVE)
[2018-04-06 18:00] LABS: EPI CELLS MODERATE /HPF (FEW); URINE MUCUS MODERATE
[2018-04-06] MEDS ORDERED: PIPERACILLIN/TAZOB 3.375 GM 3.375 GM in DEXTROSE 5%-WATER - 50 ML IVPB ONE (20:34)
[2018-04-06] MEDS ORDERED: PIPERACILLIN/TAZOB 3.375 GM 3.375 GM/50 ML BAG IVPB ONE ×2 (20:37→20:40)
--- NOTE | 2018-04-06 20:39 | PDOC ---
*Physical Exam - Vital Signs Last Vital Signs Temp Pulse Resp BP Pulse Ox 98.2 F 80 18 107/77 100 04/06/18 15:35 04/06/18 15:35 04/06/18 15:35 04/06/18 15:35 04/06/18 15:35 ED Treatment Course - LABORATORY CBC & Chemistry Diagram: 04/06/18 15:38 04/06/18 15:38 - ADDITIONAL ORDERS Additional order review: Laboratory Results 04/06/18 04/06/18 04/06/18 17:20 17:20 16:13 PT with INR INR Sodium Potassium Chloride Carbon Dioxide Anion Gap BUN Creatinine Creat Clearance w eGFR Random Glucose Lactic Acid Calcium Total Bilirubin AST ALT Alkaline Phosphatase Total Protein Albumin Lipase Urine Color Yellow Urine Appearance Slcloudy Urine pH 6.0 Ur Specific Walker 1.024 Urine Protein Negative Urine Glucose (UA) Negative Urine Ketones Negative Urine Blood 1+ H Urine Nitrite Negative Urine Bilirubin Negative Urine Urobilinogen 2.0 H Ur Leukocyte Esterase 1+ H Urine WBC (Auto) 5 Urine RBC (Auto) 17 Ur Epithelial Cells Moderate Urine Mucus Moderate Urine HCG, Qual Negative Blood Type O POSITIVE Antibody Screen Negative 04/06/18 04/06/18 04/06/18 16:13 15:38 15:38 PT with INR 13.90 H INR 1.18 H Sodium 138 Potassium 3.3 L Chloride 104 Carbon Dioxide 28 Anion Gap 6 L BUN 9 Creatinine 0.5 L Creat Clearance w eGFR > 60 Random Glucose 104 Lactic Acid 1.2 Calcium 8.8 Total Bilirubin 0.4 AST 15 ALT 25 Alkaline Phosphatase 120 H Total Protein 8.3 H Albumin 3.3 L Lipase 142 Urine Color Urine Appearance Urine pH Ur Specific Walker Urine Protein Urine Glucose (UA) Urine Ketones Urine Blood Urine Nitrite Urine Bilirubin Urine Urobilinogen Ur Leukocyte Esterase Urine WBC (Auto) Urine RBC (Auto) Ur Epithelial Cells Urine Mucus Urine HCG, Qual Blood Type Antibody Screen 04/06/18 15:38 RBC 3.95 MCV 86.9 MCHC 35.5 RDW 13.7 MPV 8.0 Neutrophils % 72.7 Lymphocytes % 18.7 D Monocytes % 6.3 Eosinophils % 1.9 Basophils % 0.4 - Medications Given in the ED: ED Medications Discontinued Medications Generic Name Dose Route Start Last Admin Trade Name Freq PRN Reason Stop Dose Admin Acetaminophen 1,000 mg 04/06/18 16:49 04/06/18 16:57 Ofirmev Injection - IVPB 04/06/18 16:50 1,000 mg ONCE ONE Administration Medical Decision Making - Medical Decision Making 04/06/18 20:[address] Rascon. Patient is 47F with appendectomy several weeks ago complicated by abscesses s/p IR drainage. Pending CT results. Labs unremarkable, vitals normal, +RLQ pain. CT shows two small abscesses with surrounding inflammatory changes. Started on zosyn. Dr Morley contacted, not a surgical candidate at this time. Will admit. *DC/Admit/Observation/Transfer Diagnosis at time of Disposition: Abdominal abscess Abdominal pain Qualifiers: Abdominal location: generalized Qualified Code(s): R10.84 - Generalized abdominal pain - Discharge Dispostion Condition at time of disposition: Stable Decision to Admit order: Yes - Referrals Referrals: Jamie Beaulieu MD [Primary Care Provider] - - Patient Instructions - Post Discharge Activity
--- NOTE | 2018-04-06 21:27 | PN ---
Teaching Attending Note Name of Resident: Jana Guerra ATTENDING PHYSICIAN STATEMENT I saw and evaluated the patient. I reviewed the resident's note and discussed the case with the resident. I agree with the resident's findings and plan as documented. SUBJECTIVE: Patient is a 47 year old woman with a PMH of Raul koch and an appendectomy on and discharged 03/30 (course complicated by abscess drained by IR and ileus; was treated with IV antibiotics and sent home on Augmentin 875mg BID for 10 days), now presents to the ER complaining of RLQ pain which began yesterday. The patient states the pain increased from a constant dull pain which her surgeon said is to be expected to a constant 9/10 pain today. She reports occasional pain exacerbation with moving her bowels. LMP was 1 week ago. OBJECTIVE: Alert Vital Signs Period Temp Pulse Resp BP Sys/Galvan Pulse Ox Last 24 Hr 98.2 F-98.7 F 78-80 16-18 107-110/67-77 98-100 HEENT: No Jaundice, eye redness or discharge, PERRLA, EOMI. Normocephalic, atraumatic. External ears are normal and hearing is grossly intact. No nasal discharge. Neck: Supple, nontender. No palpable adenopathy or thyromegaly. No JVD Chest: Good effort. Clear to auscultation and percussion. Heart: Regular. No S3, rub or murmur Abdomen: Not distended, soft, RLQ tenderness and no HSM. No rebound or guarding. Normoactive bowel sounds. Ext: Peripheral pulses intact. No leg edema. Skin: Warm and dry. No petechiae, rash or ecchymosis. Neuro: Alert. Oriented x3. CN 2-12 grossly intact. Sensation grossly intact in all four extremities and DTR are symmetric. Home Medications Medication Instructions Recorded Amox-Tr/K Cl [Augmentin - 875Mg 1 tab PO BID 04/06/18 Tablet] Abnormal Lab Results 04/06/18 04/06/18 04/06/18 15:38 15:38 17:20 PT with INR 13.90 H INR 1.18 H Potassium 3.3 L Anion Gap 6 L Creatinine 0.5 L Alkaline Phosphatase 120 H Total Protein 8.3 H Albumin 3.3 L Urine Blood 1+ H Urine Urobilinogen 2.0 H Ur Leukocyte Esterase 1+ H ASSESSMENT AND PLAN: 1. Persistent intrabdominal abscess complicating appendectomy - CT scan shows 2 intra-abdominal abscesses - smaller in size than when she was discharged. Will stop Augmentin and treat with IV Zosyn. Consult IR, surgery and ID. Hypokalemia is unexplained. Will check Mg level and give PO KCL. Monitor UA for hematuria. 2. DVT prophylaxis - Lovenox 40 mg SQ q 24 hours. 3. Advance directives - Full code
[2018-04-06] MEDS ORDERED: morphine CARPU-JECT 4 MG/1 ML DISP.SYRIN IVPUSH ONE (21:55)
[2018-04-06] MEDS ORDERED: morphine SULFATE 4 MG/ML VIAL ONE (21:58)
[2018-04-06] MEDS ORDERED: POTASSIUM CHLORIDE TABS 20 MEQ TABLET.ER (FP) PO ONE ×2 (21:59→22:00)
[2018-04-06] MEDS ORDERED: ACETAMINOPHEN 325 MG TABLET (FP) PO PRN (22:46)
--- NOTE | 2018-04-06 22:47 | HP ---
CHIEF COMPLAINT: RLQ pain, abdominal abscesses PCP: HISTORY OF PRESENT ILLNESS: 47 y/o F with PMH (12 yrs ago), tummy tuck (8 months ago), lap zay ( 10 yrs ago), recent lap appe 03/17 (d/c 03/30), who presented to the ED w/cont'd RLQ pain over the last week after her d/c. As per pt, during this time, she has had 10/10, constant RLQ pain that is sharp, without radiation. Pain is a/w poor appetite and pain with deep breathing. Denies DAWSON, fever, chills, chest pain or pressure, or changes in urinary or bowel function. Of note, on last admission pt had a lap appendectomy on 03/17/[address] Morley. Afterward, pt developed fever and tachycardia and was found to have multiple abdominal abscesses on CT (RLQ: 2x2x4.4cm, cul de sac: 6.8x3.5x3.5cm, superior to urinary bladder: 7.2z2.1x1.2cm). On 03/27, pt had one of the abscesses drained (10cc) by IR. During this time, she was tx with zosyn while in hospital, and d/c home on augmentin 875mg BID x 10 day course, of which she has completed eight days thus far. Was told by Dr. Morley that she would continue to have RLQ pain for some time. ER course was notable for: (1) zosyn 3.375g x1 (2) IV tylenol (3) Recent Travel: denies PAST MEDICAL HISTORY: as above PAST SURGICAL HISTORY: lap appendectomy 03/17, s/p IR abscess drainage 03/27 Social History: works as a [employer] Smoking: denies Alcohol: denies Drugs: denies Family History: mother - DM Allergies No Known Allergies Allergy (Verified 04/06/18 15:37) HOME MEDICATIONS: Home Medications Medication Instructions Recorded Amox-Tr/K Cl [Augmentin - 875Mg 1 tab PO BID 04/06/18 Tablet] day 8/10 of course on admission REVIEW OF SYSTEMS CONSTITUTIONAL: Absent: fever, chills, diaphoresis, generalized weakness, malaise, loss of appetite, weight change HEENT: Absent: rhinorrhea, nasal congestion, throat pain, throat swelling, difficulty swallowing, mouth swelling, ear pain, eye pain, visual changes CARDIOVASCULAR: Absent: chest pain, syncope, palpitations, irregular heart rate, lightheadedness , peripheral edema RESPIRATORY: Absent: cough, shortness of breath, dyspnea with exertion, orthopnea, wheezing, stridor, hemoptysis GASTROINTESTINAL: +abdominal pain Absent: abdominal distension, nausea, vomiting, diarrhea, constipation, melena , hematochezia GENITOURINARY: Absent: dysuria, frequency, urgency, hesitancy, hematuria, flank pain, genital pain MUSCULOSKELETAL: Absent: myalgia, arthralgia, joint swelling, back pain, neck pain SKIN: Absent: rash, itching, pallor HEMATOLOGIC/IMMUNOLOGIC: Absent: easy bleeding, easy bruising, lymphadenopathy, frequent infections ENDOCRINE: Absent: unexplained weight gain, unexplained weight loss, heat intolerance, cold intolerance NEUROLOGIC: Absent: headache, focal weakness or paresthesias, dizziness, unsteady gait, seizure, mental status changes, bladder or bowel incontinence PSYCHIATRIC: Absent: anxiety, depression, suicidal or homicidal ideation, hallucinations. PHYSICAL EXAMINATION Vital Signs - 24 hr 04/06/18 04/06/18 15:35 19:05 Temperature 98.2 F 98.7 F Pulse Rate 80 Pulse Rate [ 78 Apical] Respiratory 18 16 Rate Blood Pressure 107/77 Blood Pressure 110/67 [Right Arm] O2 Sat by Pulse 100 98 Oximetry (%) GENERAL: Resting in bed. Awake, alert, and fully oriented, in no acute distress. HEAD: Normal with no signs of trauma. EYES: Pupils equal, round and reactive to light, extraocular movements intact, sclera anicteric, conjunctiva clear. EARS, NOSE, THROAT: Ears normal, nares patent, oropharynx clear without exudates. Dry MM NECK: Normal range of motion, supple LUNGS: Breath sounds equal, clear to auscultation bilaterally. No wheezes, and no crackles. No accessory muscle use. HEART: Regular rate and rhythm, normal S1 and S2 without murmur, rub or gallop. ABDOMEN: Soft, +RLQ pain - worse with hip flexion. TTP, not distended, normoactive bowel sounds, no guarding LOWER EXTREMITIES: 2+ pt pulses, warm, well-perfused. No calf tenderness. No peripheral edema. NEUROLOGICAL: Cranial nerves II-XII intact. 5/5 motor strength in UE, LE. sensation intact PSYCHIATRIC: Cooperative. Good eye contact. SKIN: Warm, dry, normal turgor Laboratory Results 04/06/18 04/06/18 04/06/18 15:38 15:38 15:38 WBC 7.6 Hgb 12.2 Hct 34.4 Plt Count 322 PT with INR 13.90 H INR 1.18 H Sodium 138 Potassium 3.3 L Chloride 104 Carbon Dioxide 28 BUN 9 Creatinine 0.5 L Alkaline Phosphatase 120 H Total Protein 8.3 H Albumin 3.3 L Urine Blood 04/06/18 17:20 Urine Blood 1+ H Urine Urobilinogen 2.0 H Ur Leukocyte Esterase 1+ H Urine WBC (Auto) 5 Urine RBC (Auto) 17 CTAP: prelim read: poorly circumscribed 3x 2.2 x2.9cm with stranding in mid peritoneum 3.1 x 1.6x 2.1 loculated in lower pelvis, anterior to rectum. pending official report. ASSESSMENT/PLAN: 47 y/o F with H (12 yrs ago), tummy tuck (8 months ago), lap zay ( 10 yrs ago), recent lap appe 03/17 (d/c 03/30), who presented to the ED w/cont'd RLQ pain over the last week after her d/c. #RLQ abdominal pain likely 2/2 pelvic abscesses -pt with cont'd pelvic abscesses however have improved in size, afebrile without white ct -failed outpt tx on augmentin, will start on zosyn 3.375g q8h -abscess cx from past admission (-), blood cx were (-) at time -f/u new blood cx -will consult ID (Dr. Salgado), consider IR, sx consults. Dr. Camargo contacted by ED - no surgical intervention at this time #hypokalemia -will replete with Kdur 40mg x 1 -continue to follow level #F/E/N no IVF indicated at this time continue to follow lytes regular diet #PPX lovenox #Dispo admit to med surg Visit type - Emergency Visit Emergency Visit: Yes ED Registration Date: 04/06/18 Care time: The patient presented to the Emergency Department on the above date and was hospitalized for further evaluation of their emergent condition. - New Patient This patient is new to me today: Yes Date on this admission: 04/07/18 - Critical Care Critical Care patient: No
[2018-04-07 01:21] VITALS: BMI 25.1
[2018-04-07] MEDS ORDERED: ACETAMINOPHEN 1000 MG/100 ML VIAL (NON FORMULARY) IVPB ONE (02:00)
[2018-04-07] MEDS ORDERED: DEXTROSE 5%-WATER - 50 ML IVPB ONE ×3 (02:07→16:58)
[2018-04-07] MEDS ORDERED: PIPERACILLIN/TAZOBACTAM 3.375 GM VIAL IVPB ONE ×3 (02:07→16:58)
[2018-04-07] MEDS: PIPERACILLIN/TAZOB 3.375 GM 3.375 GM in DEXTROSE 5%-WATER - 50 ML IVPB SCH ×4 (03:34→18:14)
[2018-04-07] MEDS ORDERED: PIPERACILLIN/TAZOB 3.375 GM 3.375 GM in DEXTROSE 5%-WATER - 50 ML IVPB SCH (04:00)
[2018-04-07 06:57] LABS: BASO % 0.3 % (0-2.0); EOS % 1.5 % (0-4.5); HEMATOCRIT 29.5 % (32.4-45.2); HEMOGLOBIN 10.3 GM/dL (10.7-15.3); LYMPH % 16.3 % (8-40); MCH 30.1 pg (25.7-33.7); MEAN CELL VOLUME 85.9 fl (80-96); MEAN PLT VOLUME 8.1 fl (7.5-11.1); NEUT % 75.9 % (42.8-82.8); PLATELET COUNT 285 K/MM3 (134-434); RBC 3.43 M/mm3 (3.60-5.2); RDW 13.7 % (11.6-15.6); WHITE BLOOD COUNT 7.6 K/mm3 (4.0-10.0)
[2018-04-07 07:28] LABS: ALBUMIN 2.6 g/dl (3.4-5.0); ALK PHOS 104 U/L (45-117); ANION GAP 7 MMOL/L (8-16); BILIRUBIN,TOTAL 0.6 mg/dL (0.2-1); BLOOD UREA NITROGEN 11 mg/dL (7-18); CALCIUM 8.2 mg/dL (8.5-10.1); CHLORIDE 106 mmol/L (98-107); CO2 28 mmol/L (21-32); CREATININE 0.6 mg/dL (0.55-1.3); GLUCOSE,RANDOM 102 mg/dL (74-106); PHOSPHOROUS 3.9 mg/dL (2.5-4.9); POTASSIUM 4.3 mmol/L (3.5-5.1); SGOT/AST 32 U/L (15-37); SGPT/ALT 31 U/L (13-61); SODIUM 140 mmol/L (136-145); TOT PROT 6.7 g/dl (6.4-8.2)
--- NOTE | 2018-04-07 08:09 | PN ---
Progress Note, Physician Chief Complaint: C/O Rt LQ pain no fever or chills History of Present Illness: 47 year old woman with a PMH of Tumlisa tuevie and an appendectomy on 03/17/2018 and discharged 03/30 (course complicated by abscess drained by IR and ileus; was treated with IV antibiotics and sent home on Augmentin 875mg BID for 10 days), now presents to the ER complaining of RLQ pain - Current Medication List Current Medications: Active Medications Acetaminophen (Tylenol -) 650 mg PO Q6H PRN PRN Reason: PAIN LEVEL 6-10 Enoxaparin Sodium (Lovenox -) 40 mg SQ DAILY IKE Piperacillin Sod/Tazobactam (Sod 3.375 gm/ Dextrose) 50 mls @ 100 mls/hr IVPB Q8H IKE Stop: 04/07/18 12:29 Last Admin: 04/07/18 03:34 Dose: 100 mls/hr - Objective Vital Signs: Vital Signs Temperature 98.6 F 04/07/18 06:18 Pulse Rate 74 04/07/18 06:18 Respiratory Rate 18 04/07/18 06:18 Blood Pressure 96/63 04/07/18 06:18 O2 Sat by Pulse Oximetry (%) 98 04/07/18 04:53 Constitutional: Yes: Well Nourished, No Distress, Other (c/O Pain) Eyes: Yes: Conjunctiva Clear, EOM Intact HENT: Yes: Atraumatic, Normocephalic Neck: Yes: Supple, Trachea Midline. No: Decreased ROM, Lymphadenopathy Cardiovascular: Yes: Regular Rate and Rhythm, S1, S2. No: JVD, Murmur Respiratory: Yes: Regular, CTA Bilaterally Gastrointestinal: Yes: Normal Bowel Sounds, Other (RT LQ pain with rebound Tend) Extremities: No: Calf Tenderness Edema: No Peripheral Pulses: Left Doralis Pedis: 2+, Right Dorsalis Pedis: 2+ Neurological: Yes: Alert, Oriented ...Motor Strength: WNL, LUE, LLE, RUE, RLE Labs: CBC, BMP 04/07/18 06:00 04/07/18 06:00 INR, PTT INR 1.18 (0.83-1.09) H 04/06/18 15:38 Problem List - Problems (1) Abdominal abscess Assessment/Plan: Post perfortaed acute appendicitis during previous hospitalization s/o IR shira jonesaigned IV abx for 2 wks and & days augmentin that she completed few days ago canme back with sever pain CT shows abscess, evaluated by ID , Pain control, surgery evaluation by operating surgeon Dr Gamez , further course as per ID input. Code(s): [id number] - (2) Pain, abdominal Assessment/Plan: Due to intrabdominal abscess cont IV abx, pain control F/U Code(s): R10.9 - UNSPECIFIED ABDOMINAL PAIN
[2018-04-07] MEDS: ENOXAPARIN NA (PORCINE) 40 MG/0.4 ML DISP.SYRIN SQ SCH (09:01)
--- NOTE | 2018-04-07 11:50 | EKG ---
Test Reason : Blood Pressure : / mmHG Vent. Rate : 079 BPM Atrial Rate : 079 BPM P-R Int : 112 ms QRS Dur : 074 ms QT Int : 384 ms P-R-T Axes : 036 -06 009 degrees QTc Int : 440 ms NORMAL SINUS RHYTHM NORMAL ECG WHEN COMPARED WITH ECG OF 19-MAR-2018 10:11, VENT. RATE HAS DECREASED BY 45 BPM Confirmed by NINI VEGA MD ([id number]) on 04/07/2018 11:50:08 AM Referred By: Confirmed By:NINI VEGA MD
--- NOTE | 2018-04-07 11:57 | CONSULT ---
- Consultation REQUESTING PROVIDER: CONSULT REQUEST: We have been asked to surgically evaluate this patient for ( abdominal pain). PCP:Tanesha Roche MD HISTORY OF PRESENT ILLNESS: 47 y/o F w/ no significant PMHx s/p recent hospital course (03/17-03/30) after being admitted acute appendicitis, s/p lap appy 03/17, c/b post op ileus, intra- abdominal abscess formation requiring IR drainage, now re-admitted for continued abdominal pain. Pt reports she had persistent pain after discharge in her RLQ, which worsened significantly on Tuesday. States pain is 10/10, constant and sharp in nature, without radiation. Reports poor appetite. Denies fever, chills, n/v/d, changes in bowel or urinary function. Prior to d/c from last admission pt had a fistulogram with IR which showed no significant residual abscess cavity. Pt was tx with zosyn while in hospital, and d/c home on augmentin 875mg BID x 10 day course, of which she has completed eight days thus far. PMHx: none PSHx: Lap zay 2008, abdominoplasty 2017, 2005 Home Medications Medication Instructions Recorded Amox-Tr/K Cl [Augmentin - 875Mg 1 tab PO BID 04/06/18 Tablet] Allergies Allergy/AdvReac Type Severity Reaction Status Date / Time No Known Allergies Allergy Verified 04/06/18 15:37 REVIEW OF SYSTEMS: CONSTITUTIONAL: Absent: fever, chills + loss of appetite CARDIOVASCULAR: Absent: chest pain, syncope RESPIRATORY: Absent: cough, shortness of breath GASTROINTESTINAL: +abdominal pain, abdominal distension -nausea, vomiting, diarrhea, constipation PHYSICAL EXAM: GENERAL: Awake, alert, and fully oriented, in no acute distress. HEAD: Normal with no signs of trauma. LUNGS: Clear to auscultation bilat anteriorly. No wheezes, and no crackles. No accessory muscle use. HEART: Regular rate and rhythm. ABDOMEN: Soft, +ttp, in RLQ, +romana-umbilical ttp, not distended, normoactive bowel sounds, no guarding, no rebound. Port sites intact with scabbing/glui in place, no erythema or drainage LOWER EXTREMITIES: No calf tenderness. No peripheral edema. NEUROLOGICAL: Normal speech, gait not observed. Vital Signs Temperature 98.0 F 04/07/18 10:00 Pulse Rate 83 04/07/18 10:00 Respiratory Rate 20 04/07/18 10:00 Blood Pressure 99/53 L 04/07/18 10:00 O2 Sat by Pulse Oximetry (%) 98 04/07/18 09:00 Lab Results WBC 7.6 K/mm3 (4.0-10.0) 04/07/18 06:00 RBC 3.43 M/mm3 (3.60-5.2) L 04/07/18 06:00 Hgb 10.3 GM/dL (10.7-15.3) L 04/07/18 06:00 Hct 29.5 % (32.4-45.2) L 04/07/18 06:00 MCV 85.9 fl (80-96) 04/07/18 06:00 MCHC 35.0 g/dl (32.0-36.0) 04/07/18 06:00 RDW 13.7 % (11.6-15.6) 04/07/18 06:00 Plt Count 285 K/MM3 (134-434) 04/07/18 06:00 Sodium 140 mmol/L (136-145) 04/07/18 06:00 Potassium 4.3 mmol/L (3.5-5.1) 04/07/18 06:00 Chloride 106 mmol/L (98-107) 04/07/18 06:00 Carbon Dioxide 28 mmol/L (21-32) 04/07/18 06:00 Anion Gap 7 MMOL/L (8-16) L 04/07/18 06:00 BUN 11 mg/dL (7-18) 04/07/18 06:00 Creatinine 0.6 mg/dL (0.55-1.3) 04/07/18 06:00 Random Glucose 102 mg/dL (74-106) 04/07/18 06:00 Calcium 8.2 mg/dL (8.5-10.1) L 04/07/18 06:00 Blood Type O POSITIVE 04/06/18 16:13 Antibody Screen Negative 04/06/18 16:13 INR 1.18 (0.83-1.09) H 04/06/18 15:38 CT abdo/pelvis (04/06/18): An approximately 3x2x1.3cm rim-enhancing fluid collection is seen within the pelvic cul-de-sac which had previously measured 7x3.5cm on CT from 03/15/18. The patient is s/p interval CT-guided drainage of this collection. Decreased size fluid collection is seen interposed between the uterine body and urinary bladder dome currently measuring approximately 3.7x0.7x0.7cm, previously 7x2x1.3cm. A 2.3x1.3cm fluid collection is seen within the right anterior aspect of the mid abdomen previously measuring 1.7x1.1cm. This focus demonstrates increased wall thickening since the prior study and probable mildly increased surrounding mesenteric edema. There has been interval resolution of a 2.3x2.3cm fluid collection abutting the inferior border of the cecum. A/P: 47 y/o F w/ no significant PMHx s/p recent hospital course (03/17-03/30) after being admitted acute appendicitis, s/p lap appy 03/17, c/b post op ileus, intra-abdominal abscess formation requiring IR drainage, now re-admitted for continued abdominal pain found to have persistent (though smaller) abscesses on CT scan. Afebrile, no leukocytosis. -IV abx -Monitor VS -Dr Gamez will be by this afternoon regarding further plan above d/w attending Dr Morley
--- NOTE | 2018-04-07 12:22 | CON.ID ---
Consult Consult Specialty:: infectious diseases Referred by:: hospitalist Reason for Consultation:: abd abscess - History of Present Illness Chief Complaint: abd pain History of Present Illness: 47 y/o F with PMH (12 yrs ago), tummy tuck (8 months ago), lap zay ( 10 yrs ago), recent lap appe 03/17 (d/c 03/30), who presented to the ED w/cont'd RLQ pain over the last week after her d/c. As per pt, during this time, she has had 10/10, constant RLQ pain that is sharp, without radiation. Pain is a/w poor appetite and pain with deep breathing. Denies DAWSON, fever, chills, chest pain or pressure, or changes in urinary or bowel function. Of note, on last admission pt had a lap appendectomy on 03/17/[address] Morley. Afterward, pt developed fever and tachycardia and was found to have multiple abdominal abscesses on CT (RLQ: 2x2x4.4cm, cul de sac: 6.8x3.5x3.5cm, superior to urinary bladder: 7.2z2.1x1.2cm). On 03/27, pt had one of the abscesses drained (10cc) by IR. During this time, she was tx with zosyn while in hospital, and d/c home on augmentin 875mg BID x 10 day course, of which she has completed eight days thus far. patient then noticed that pain continued to increase and patient came to the hospital and was worked up and found to have absces still presnt - History Source History Provided By: Patient Limitations to Obtaining History: No Limitations - Past Medical History ...LMP: 03/12/18 ...: No - Alcohol/Substance Use Hx Alcohol Use: No - Smoking History Smoking history: Never smoked Have you smoked in the past 12 months: No Home Medications - Allergies Allergies/Adverse Reactions: Allergies Allergy/AdvReac Type Severity Reaction Status Date / Time No Known Allergies Allergy Verified 04/06/18 15:37 - Home Medications Home Medications: Ambulatory Orders Amox-Tr/K Cl [Augmentin - 875Mg Tablet] 1 tab PO BID 04/06/18 Review of Systems - Review of Systems Constitutional: reports: No Symptoms Eyes: reports: No Symptoms HENT: reports: No Symptoms Neck: reports: No Symptoms Cardiovascular: reports: No Symptoms Respiratory: reports: No Symptoms Gastrointestinal: reports: Abdominal Pain, Other Genitourinary: reports: No Symptoms Musculoskeletal: reports: No Symptoms Integumentary: reports: No Symptoms Neurological: reports: No Symptoms Endocrine: reports: No Symptoms Hematology/Lymphatic: reports: No Symptoms Psychiatric: reports: No Symptoms Physical Exam Vital Signs: Vital Signs Temperature 98.0 F 04/07/18 10:00 Pulse Rate 83 04/07/18 10:00 Respiratory Rate 20 04/07/18 10:00 Blood Pressure 99/53 L 04/07/18 10:00 O2 Sat by Pulse Oximetry (%) 98 04/07/18 09:00 Constitutional: Yes: Well Nourished, Calm, Moderate Distress Eyes: Yes: Conjunctiva Clear HENT: Yes: Atraumatic, Normocephalic Neck: Yes: Supple, Trachea Midline Cardiovascular: Yes: Regular Rate and Rhythm Respiratory: Yes: Regular, CTA Bilaterally Gastrointestinal: Yes: Soft, Hypoactive Bowel Sounds Musculoskeletal: Yes: WNL Extremities: Yes: WNL Neurological: Yes: Alert, Oriented Psychiatric: Yes: Alert, Oriented Labs: CBC, BMP 04/07/18 06:00 04/07/18 06:00 Imaging - Results Cat Scan: Report Reviewed, Image Reviewed Assessment/Plan Patient is a 47 year old female with a significant past medical history of c- section, tummy tuck, cholecystectomy (around 8 years ago) presents with epigastric pain and is s/p laproscopic appendectomy for acute appendicitis on 01/2018. now coming back again for new abd abscess after being on oral abx now with sever pain and tenderness in rt lower quadrant peritonitis abd pain ac appendicitis post op abd abscess plan i think the abscess will need to be drained the question is if needs to be drainaed laproscopically or ir can do it as patient has multiple abscess surgery should see the patient i am going to start her back on zosyn as her abscess had decreased in size
[2018-04-07] MEDS ORDERED: MORPHINE SULFATE 2 MG/ML VIAL SQ PRN (12:31)
[2018-04-07] MEDS: MORPHINE SULFATE 2 MG/ML VIAL IVPB PRN ×2 (13:32→22:29)
[2018-04-08] MEDS ORDERED: DEXTROSE 5%-WATER - 50 ML IVPB ONE ×3 (00:10→17:24)
[2018-04-08] MEDS ORDERED: PIPERACILLIN/TAZOBACTAM 3.375 GM VIAL IVPB ONE ×3 (00:10→17:23)
[2018-04-08] MEDS: PIPERACILLIN/TAZOB 3.375 GM 3.375 GM in DEXTROSE 5%-WATER - 50 ML IVPB SCH ×3 (01:05→18:08)
--- NOTE | 2018-04-08 08:25 | PN ---
Progress Note, Physician Chief Complaint: C/O Rt LQ pain no fever or chills History of Present Illness: 47 year old woman with a PMH of Tummy tuck and an appendectomy on 03/17/2018 and discharged 03/30 (course complicated by abscess drained by IR and ileus; was treated with IV antibiotics and sent home on Augmentin 875mg BID for 10 days), now presents to the ER complaining of RLQ pain - Current Medication List Current Medications: Active Medications Acetaminophen (Tylenol -) 650 mg PO Q6H PRN PRN Reason: PAIN LEVEL 6-10 Last Admin: 04/07/18 08:51 Dose: 650 mg Enoxaparin Sodium (Lovenox -) 40 mg SQ DAILY IKE Last Admin: 04/07/18 09:01 Dose: Not Given Piperacillin Sod/Tazobactam (Sod 3.375 gm/ Dextrose) 50 mls @ 100 mls/hr IVPB Q8H-IV IKE; Protocol Last Admin: 04/08/18 01:05 Dose: 100 mls/hr Morphine Sulfate (Morphine Sulfate) 2 mg IVPB Q6H PRN PRN Reason: PAIN LEVEL 6-10 Last Admin: 04/07/18 22:29 Dose: 2 mg - Objective Vital Signs: Vital Signs Temperature 98.8 F 04/08/18 05:00 Pulse Rate 117 H 04/08/18 05:00 Respiratory Rate 18 04/08/18 05:00 Blood Pressure 175/88 H 04/08/18 05:00 O2 Sat by Pulse Oximetry (%) 98 04/07/18 21:00 Constitutional: Yes: Well Nourished, No Distress, Other (c/O Pain) Eyes: Yes: Conjunctiva Clear, EOM Intact HENT: Yes: Atraumatic, Normocephalic Neck: Yes: Supple, Trachea Midline. No: Decreased ROM, Lymphadenopathy Cardiovascular: Yes: Regular Rate and Rhythm, S1, S2. No: JVD, Murmur Respiratory: Yes: Regular, CTA Bilaterally Gastrointestinal: Yes: Normal Bowel Sounds, Other (RT LQ pain with rebound Tend) Extremities: No: Calf Tenderness Edema: No Peripheral Pulses: Left Doralis Pedis: 2+, Right Dorsalis Pedis: 2+ Neurological: Yes: Alert, Oriented ...Motor Strength: WNL, LUE, LLE, RUE, RLE Labs: CBC, BMP 04/07/18 06:00 04/07/18 06:00 INR, PTT INR 1.18 (0.83-1.09) H 04/06/18 15:38 Problem List - Problems (1) Abdominal abscess Assessment/Plan: Post perfortaed acute appendicitis during previous hospitalization s/o IR shira draigned IV abx for 2 wks and & days augmentin that she completed few days ago canme back with sever pain CT shows abscess, evaluated by ID , Pain control, operating surgeon Dr Gamez , recommonded no indication for surgery can be Dc on PO abx and pain control, will F/U ESR and CRP will discuss with Id for PO abx Code(s): [id number] - (2) Pain, abdominal Assessment/Plan: Due to intrabdominal abscess cont IV abx, pain control F/U Code(s): R10.9 - UNSPECIFIED ABDOMINAL PAIN
--- NOTE | 2018-04-08 08:38 | PN ---
Progress Note, Physician Chief Complaint: S/p appendectomy with postop Abcesses requiring percutaneous drainage of pelvic collection Readmitted with abdominal pain VSS\ AFEB Exam soft minimal tenderness in the RLQ WNL normal Ct Scan shows complete resolution of collection on the base of cecum and significant decrease in collection in the pelvis and anterion abdominal wall too small to warant percutaneous drainage A/P perforated appendicittis with postop fluid collections Currently afebrile normal WBC and significant improvement in imaging I see no clinical indication for surgical intervention recommendation Advance diet consider oral antibiotics and repeat Scan in 2 weeks unless symptoms worsen - Current Medication List Current Medications: Active Medications Acetaminophen (Tylenol -) 650 mg PO Q6H PRN PRN Reason: PAIN LEVEL 6-10 Last Admin: 04/07/18 08:51 Dose: 650 mg Enoxaparin Sodium (Lovenox -) 40 mg SQ DAILY IKE Last Admin: 04/07/18 09:01 Dose: Not Given Piperacillin Sod/Tazobactam (Sod 3.375 gm/ Dextrose) 50 mls @ 100 mls/hr IVPB Q8H-IV IKE; Protocol Last Admin: 04/08/18 01:05 Dose: 100 mls/hr Morphine Sulfate (Morphine Sulfate) 2 mg IVPB Q6H PRN PRN Reason: PAIN LEVEL 6-10 Last Admin: 04/07/18 22:29 Dose: 2 mg - Objective Vital Signs: Vital Signs Temperature 98.8 F 04/08/18 05:00 Pulse Rate 117 H 04/08/18 05:00 Respiratory Rate 18 04/08/18 05:00 Blood Pressure 175/88 H 04/08/18 05:00 O2 Sat by Pulse Oximetry (%) 98 04/07/18 21:00 Labs: CBC, BMP 04/07/18 06:00 04/07/18 06:00 INR, PTT INR 1.18 (0.83-1.09) H 04/06/18 15:38
[2018-04-08 09:04] LABS: BASO % 0.3 % (0-2.0); EOS % 1.7 % (0-4.5); HEMATOCRIT 29.6 % (32.4-45.2); HEMOGLOBIN 10.4 GM/dL (10.7-15.3); LYMPH % 17.5 % (8-40); MCH 30.2 pg (25.7-33.7); MCHC 35.1 g/dl (32.0-36.0); MEAN CELL VOLUME 85.8 fl (80-96); MEAN PLT VOLUME 8.2 fl (7.5-11.1); MONO % 6.7 % (3.8-10.2); NEUT % 73.8 % (42.8-82.8); PLATELET COUNT 260 K/MM3 (134-434); RBC 3.45 M/mm3 (3.60-5.2); RDW 13.4 % (11.6-15.6); WHITE BLOOD COUNT 7.8 K/mm3 (4.0-10.0)
[2018-04-08 10:15] LABS: ANION GAP 9 MMOL/L (8-16); BLOOD UREA NITROGEN 10 mg/dL (7-18); CALCIUM 8.2 mg/dL (8.5-10.1); CHLORIDE 103 mmol/L (98-107); CO2 26 mmol/L (21-32); CREATININE 0.6 mg/dL (0.55-1.3); GLUCOSE,RANDOM 86 mg/dL (74-106); POTASSIUM 3.7 mmol/L (3.5-5.1); SODIUM 139 mmol/L (136-145)
[2018-04-08] MEDS: ENOXAPARIN NA (PORCINE) 40 MG/0.4 ML DISP.SYRIN SQ SCH (10:20)
[2018-04-08] MEDS ORDERED: IBUPROFEN 400 MG TABLET (FP) PO PRN (12:00)
[2018-04-08] MEDS: RANITIDINE HCL 150 MG TABLET (FP) PO SCH (12:59)
--- NOTE | 2018-04-08 16:21 | PN ---
Progress Note, Physician History of Present Illness: Pt seen, events noted. C/o abdominal pain greatest in RLQ. Tmax 99.8F - Current Medication List Current Medications: Active Medications Acetaminophen (Tylenol -) 650 mg PO Q6H PRN PRN Reason: PAIN LEVEL 6-10 Last Admin: 04/07/18 08:51 Dose: 650 mg Enoxaparin Sodium (Lovenox -) 40 mg SQ DAILY [facility] Last Admin: 04/08/18 10:20 Dose: Not Given Piperacillin Sod/Tazobactam (Sod 3.375 gm/ Dextrose) 50 mls @ 100 mls/hr IVPB Q8H-IV IKE; Protocol Last Admin: 04/08/18 10:18 Dose: 100 mls/hr Ibuprofen (Motrin -) 400 mg PO Q6H PRN PRN Reason: FEVER Morphine Sulfate (Morphine Sulfate) 2 mg IVPB Q6H PRN PRN Reason: PAIN LEVEL 6-10 Last Admin: 04/07/18 22:29 Dose: 2 mg Ranitidine HCl (Zantac -) 150 mg PO DAILY [facility] Last Admin: 04/08/18 12:59 Dose: 150 mg - Objective Vital Signs: Vital Signs Temperature 97.9 F 04/08/18 14:32 Pulse Rate 88 04/08/18 14:32 Respiratory Rate 20 04/08/18 14:32 Blood Pressure 99/65 04/08/18 14:32 O2 Sat by Pulse Oximetry (%) 98 04/08/18 09:00 Constitutional: Yes: No Distress Eyes: Yes: Conjunctiva Clear Neck: Yes: Supple Cardiovascular: Yes: Regular Rate and Rhythm Respiratory: Yes: Regular Gastrointestinal: Yes: Normal Bowel Sounds, Soft, Tenderness (>RLQ) Genitourinary: Yes: WNL Edema: No Integumentary: Yes: WNL Neurological: Yes: Alert Labs: CBC, BMP 04/08/18 07:15 04/08/18 07:15 INR, PTT INR 1.18 (0.83-1.09) H 04/06/18 15:38 Microbiology 04/06/18 15:20 Blood - Peripheral Venous Blood Culture - Preliminary NO GROWTH OBTAINED AFTER 48 HOURS, INCUBATION TO CONTINUE FOR 3 DAYS. 04/06/18 15:38 Blood - Peripheral Venous Blood Culture - Preliminary NO GROWTH OBTAINED AFTER 48 HOURS, INCUBATION TO CONTINUE FOR 3 DAYS. - ....Imaging Cat Scan: Report Reviewed Problem List - Problems (1) Abdominal abscess Code(s): [id number] - Assessment/Plan Intraabdominal Abscesses Peritonitis appendicitis s/p lab appendectomy/abscess - previous admission -- labs/imaging results noted -- continue IV antibiotics -- consider drainage of abscess, surgical follow up monitor vitals
[2018-04-08] MEDS: MORPHINE SULFATE 2 MG/ML VIAL IVPB PRN (22:01)
[2018-04-09] MEDS ORDERED: DEXTROSE 5%-WATER - 50 ML IVPB ONE ×2 (01:04→09:35)
[2018-04-09] MEDS ORDERED: PIPERACILLIN/TAZOBACTAM 3.375 GM VIAL IVPB ONE ×2 (01:04→09:34)
[2018-04-09] MEDS: PIPERACILLIN/TAZOB 3.375 GM 3.375 GM in DEXTROSE 5%-WATER - 50 ML IVPB SCH ×2 (01:15→09:39)
[2018-04-09 06:50] LABS: BASO % 0.4 % (0-2.0); HEMATOCRIT 28.9 % (32.4-45.2); HEMOGLOBIN 10.1 GM/dL (10.7-15.3); LYMPH % 17.6 % (8-40); MCHC 34.8 g/dl (32.0-36.0); MEAN CELL VOLUME 86.2 fl (80-96); MEAN PLT VOLUME 8.1 fl (7.5-11.1); PLATELET COUNT 253 K/MM3 (134-434); RBC 3.36 M/mm3 (3.60-5.2); RDW 13.3 % (11.6-15.6); WHITE BLOOD COUNT 8.5 K/mm3 (4.0-10.0)
[2018-04-09 07:22] LABS: ANION GAP 6 MMOL/L (8-16); BLOOD UREA NITROGEN 13 mg/dL (7-18); CALCIUM 8.1 mg/dL (8.5-10.1); CHLORIDE 104 mmol/L (98-107); CO2 28 mmol/L (21-32); CREATININE 0.6 mg/dL (0.55-1.3); GLUCOSE,RANDOM 90 mg/dL (74-106); POTASSIUM 3.6 mmol/L (3.5-5.1); SODIUM 138 mmol/L (136-145)
[2018-04-09 09:32] VITALS: BP 97/52; PULSE 61; TEMP 98
[2018-04-09] MEDS: ENOXAPARIN NA (PORCINE) 40 MG/0.4 ML DISP.SYRIN SQ SCH (09:39)
[2018-04-09] MEDS: RANITIDINE HCL 150 MG TABLET (FP) PO SCH (09:39)
--- NOTE | 2018-04-09 13:34 | PN ---
Progress Note, Physician Chief Complaint: C/O Rt LQ pain no fever or chills History of Present Illness: 47 year old woman with a PMH of [place] tuck and an appendectomy on 03/17/2018 and discharged 03/30 (course complicated by abscess drained by IR and ileus; was treated with IV antibiotics and sent home on Augmentin 875mg BID for 10 days), now presents to the ER complaining of RLQ pain - Current Medication List Current Medications: Active Medications Acetaminophen (Tylenol -) 650 mg PO Q6H PRN PRN Reason: PAIN LEVEL 6-10 Last Admin: 04/07/18 08:51 Dose: 650 mg Enoxaparin Sodium (Lovenox -) 40 mg SQ DAILY IKE Last Admin: 04/09/18 09:39 Dose: Not Given Piperacillin Sod/Tazobactam (Sod 3.375 gm/ Dextrose) 50 mls @ 100 mls/hr IVPB Q8H-IV IKE; Protocol Last Admin: 04/09/18 09:39 Dose: 100 mls/hr Ibuprofen (Motrin -) 400 mg PO Q6H PRN PRN Reason: FEVER Ranitidine HCl (Zantac -) 150 mg PO DAILY IKE Last Admin: 04/09/18 09:39 Dose: 150 mg - Objective Vital Signs: Vital Signs Temperature 98 F 04/09/18 09:31 Pulse Rate 61 04/09/18 09:31 Respiratory Rate 18 04/09/18 09:31 Blood Pressure 97/52 L 04/09/18 09:31 O2 Sat by Pulse Oximetry (%) 98 04/08/18 21:00 Constitutional: Yes: Well Nourished, No Distress, Other (c/O Pain) Eyes: Yes: Conjunctiva Clear, EOM Intact HENT: Yes: Atraumatic, Normocephalic Neck: Yes: Supple, Trachea Midline. No: Decreased ROM, Lymphadenopathy Cardiovascular: Yes: Regular Rate and Rhythm, S1, S2. No: JVD, Murmur Respiratory: Yes: Regular, CTA Bilaterally Gastrointestinal: Yes: Normal Bowel Sounds, Other (RT LQ pain with rebound Tend) Extremities: No: Calf Tenderness Edema: No Peripheral Pulses: Left Doralis Pedis: 2+, Right Dorsalis Pedis: 2+ Neurological: Yes: Alert, Oriented, Motor Strength: WNL, LUE, LLE, RUE, RLE Labs: CBC, BMP 04/09/18 05:15 04/09/18 05:15 INR, PTT INR 1.18 (0.83-1.09) H 04/06/18 15:38 Problem List - Problems (1) Abdominal abscess Assessment/Plan: Post perfortaed acute appendicitis during previous hospitalization s/o IR shira draigned IV abx for 2 wks and & days augmentin that she completed few days ago canme back with sever pain CT shows abscess, evaluated by ID , Pain control, operating surgeon Dr Gamez , recommonded no indication for surgery can be Dc on PO abx and pain control, will F/U ESR and CRP will discuss with Id for PO abx Code(s): [id number] - (2) Pain, abdominal Assessment/Plan: Due to intrabdominal abscess cont IV abx, pain control F/U Code(s): R10.9 - UNSPECIFIED ABDOMINAL PAIN
--- NOTE | 2018-04-09 13:45 | PN ---
Progress Note, Physician History of Present Illness: Pt states she feels well. States that she has some RLQ pain relieved with pain meds. Remains afebrile. She is tolerating food intake and has no other specific complaints. She wishes to go home. - Current Medication List Current Medications: Active Medications Acetaminophen (Tylenol -) 650 mg PO Q6H PRN PRN Reason: PAIN LEVEL 6-10 Last Admin: 04/07/18 08:51 Dose: 650 mg Enoxaparin Sodium (Lovenox -) 40 mg SQ DAILY [facility] Last Admin: 04/09/18 09:39 Dose: Not Given Piperacillin Sod/Tazobactam (Sod 3.375 gm/ Dextrose) 50 mls @ 100 mls/hr IVPB Q8H-IV IKE; Protocol Last Admin: 04/09/18 09:39 Dose: 100 mls/hr Ibuprofen (Motrin -) 400 mg PO Q6H PRN PRN Reason: FEVER Ranitidine HCl (Zantac -) 150 mg PO DAILY [facility] Last Admin: 04/09/18 09:39 Dose: 150 mg - Objective Vital Signs: Vital Signs Temperature 98 F 04/09/18 09:31 Pulse Rate 61 04/09/18 09:31 Respiratory Rate 18 04/09/18 09:31 Blood Pressure 97/52 L 04/09/18 09:31 O2 Sat by Pulse Oximetry (%) 98 04/08/18 21:00 Constitutional: Yes: No Distress, Calm Cardiovascular: Yes: Regular Rate and Rhythm Respiratory: Yes: Regular Gastrointestinal: Yes: Normal Bowel Sounds, Soft, Tenderness (minimal RLQ with deep palpation) Extremities: Yes: WNL Neurological: Yes: Alert, Oriented Labs: CBC, BMP 04/09/18 05:15 04/09/18 05:15 INR, PTT INR 1.18 (0.83-1.09) H 04/06/18 15:38 Microbiology 04/06/18 15:20 Blood - Peripheral Venous Blood Culture - Preliminary NO GROWTH OBTAINED AFTER 48 HOURS, INCUBATION TO CONTINUE FOR 3 DAYS. 04/06/18 15:38 Blood - Peripheral Venous Blood Culture - Preliminary NO GROWTH OBTAINED AFTER 48 HOURS, INCUBATION TO CONTINUE FOR 3 DAYS. Problem List - Problems (1) Abdominal abscess Code(s): [id number] - Assessment/Plan Intraabdominal Abscesses Peritonitis appendicitis s/p lab appendectomy/abscess - previous admission -- pt afebrile, without leukocytosis -- seen by surgery, abscesses small and not drainable -- may switch to Levaquin 750 mg po daily and flagyl 500 mg po TID x 10 days -- will need repeat CT as outpatient -- patient instructed to seek immediate medical attention if pain worsens/ develops fever/diarrhea
--- NOTE | 2018-04-09 14:12 | DS ---
Physical Examination Vital Signs: Vital Signs Temperature 98 F 04/09/18 09:31 Pulse Rate 61 04/09/18 09:31 Respiratory Rate 18 04/09/18 09:31 Blood Pressure 97/52 L 04/09/18 09:31 O2 Sat by Pulse Oximetry (%) 98 04/08/18 21:00 Constitutional: Yes: Well Nourished, No Distress Eyes: Yes: Conjunctiva Clear, EOM Intact HENT: Yes: Atraumatic, Normocephalic Neck: Yes: Supple, Trachea Midline. No: Decreased ROM, Lymphadenopathy Cardiovascular: Yes: Regular Rate and Rhythm, S1, S2. No: Bruit, JVD, Murmur Respiratory: Yes: Regular, CTA Bilaterally Gastrointestinal: Yes: Normal Bowel Sounds, Soft, Other (Rt LQ tenderness and mild rebound) Musculoskeletal: No: Back Pain, Joint Stiffness Edema: No Peripheral Pulses: Left Doralis Pedis: 1+, Right Dorsalis Pedis: 1+ Neurological: Yes: Alert, Oriented ...Motor Strength: WNL, LUE, LLE, RUE, RLE Labs: CBC, BMP 04/09/18 05:15 04/09/18 05:15 Discharge Summary Reason For Visit: ABDOMINAL ABSCESS Current Active Problems Abdominal abscess (Acute) Abdominal pain (Acute) Pain, abdominal (Acute) Hospital Course: 47 yrs old F recent lap appe 03/17 (d/c 03/30), who presented to the ED w/cont'd RLQ pain over the last week after her d/c. As per pt, during this time, she has had 10/10, constant RLQ pain that is sharp, on last admission pt had a lap appendectomy on 03/17/[address] Morley. Afterward, pt developed fever and tachycardia and was found to have multiple abdominal abscesses on CT (RLQ: 2x2x4.4cm, cul de sac: 6.8x3.5x3.5cm, superior to urinary bladder: 7.2z2.1x1.2cm ). On 03/27, pt had one of the abscesses drained (10cc) by IR. During this time, she was tx with zosyn while in hospital, and d/c home on augmentin 875mg BID x 10 day course, of which she has completed eight days thus far. Was told by Dr. Morley that she would continue to have RLQ pain for some time. today CT abd shows resolving abd abscess, Patient remained afebrile normal TWBC evaluated by operating surgeon recommended PO abx for 2 wks and F/U as out patient, discussed with ID [id number] 10 days PO Levofloxacin and Flagyl 500 mg TID and observe. Condition: Stable - Instructions Referrals: Jamie Beaulieu MD [Primary Care Provider] - 2 Weeks Genaro Gamez [Staff Physician] - 2 Weeks Disposition: HOME - Home Medications Comprehensive Discharge Medication List: Ambulatory Orders Acetaminophen [Tylenol .Regular Strength -] 650 mg PO Q6H PRN #30 tablet MDD three 04/09/18 Ranitidine [Zantac -] 150 mg PO DAILY 30 Days #60 tablet MDD two 04/09/18 levoFLOXacin [Levaquin -] 750 mg PO DAILY 10 Days #10 tablet MDD 1 04/09/18 metroNIDAZOLE [Flagyl -] 500 mg PO TID 10 Days #30 tablet MDD three 04/09/18
[2018-04-09] MEDS ORDERED: metroNIDAZOLE 250 MG TABLET PO SCH (14:15)
== END 2018-04-09 15:29 | disposition home or self-care (01) | DRG 862 ==
LOC: JER 15:17 → JERBED 20:39 → J7W 04-07 01:05
PROVIDERS: ADMIT Internal Medicine; ATTEND Internal Medicine
DX: T81.49XA Infection following a procedure, other surgical site, initial encounter (principal); K65.1 Peritoneal abscess; K65.9 Peritonitis, unspecified; E87.6 Hypokalemia; Y83.8 Other surgical procedures as the cause of abnormal reaction of the patient, or of later complication, without mention of misadventure at the time of the procedure
CPT/HCPCS: 36415; 74177-TC; 80048; 80053; 81003; 81015; 83605; 83690; 83735; 84100; 84703; 85025; 85610; 85651; 86140; 86850; 86900; 86901; 87040; 93005; 93010; 99283-25; J0131